=== PATIENT | female | born 1950 | race Caucasian/White ===

== ENCOUNTER 2019-07-28 14:20 | Outpatient (CLI) | payer MEDICARE, SELFPAY ==
[2019-07-28 14:36] LABS: Basophils Absolute Auto 0.1 K/mm3 (0.0-0.1); Basophils Percent Auto 0.8 % (0.2-1.2); Eosinophils Absolute Auto 0.1 K/mm3 (0-0.3); Eosinophils Percent Auto 2.1 % (0-4.4); Hematocrit 46.3 % (37.0-47.0); Hemoglobin 15.7 g/dL (12.0-15.0); Immature Granulocyte Absolute 0.02 K/mm3 (0.00-0.031); Immature Granulocyte Percent A 0.3 % (0-0.5); Lymphocytes Absolute Auto 1.74 K/mm3 (0.9-3.2); Lymphocytes Percent Auto 28.4 % (18.3-44.2); Mean Corpuscular HGB Conc 33.9 g/dl (32-36); Mean Corpuscular Hemoglobin 31.2 pg (26-34); Mean Platelet Volume 9.5 fl (7.4-10.4); Monocytes Absolute Auto 0.5 K/mm3 (0.1-0.6); Neutrophils Absolute Auto 3.7 K/mm3 (1.3-6.7); Neutrophils Percent Auto 60.4 % (45.5-73.1); Platelet Count Result 306 k/mm3 (150-375); Red Blood Count 5.03 M/mm3 (4.2-5.4); White Blood Count 6.1 K/mm3 (4.5-10.0)
[2019-07-28 17:12] LABS: Alanine Aminotransferase 25 U/L (4-35); Albumin Level 4.3 g/dL (3.5-5.1); Alkaline Phosphatase 99 U/L (38-126); Aspartate Amino Transferase 23 U/L (14-36); Bilirubin,Total 0.3 mg/dL (0.2-1.3); Blood Urea Nitrogen 28 mg/dL (7-17); Calcium 9.1 mg/dL (8.4-10.2); Carbon Dioxide 29 mmol/L (22-30); Chloride 106 mmol/L (98-107); Estimated Glomerular Filt Rate > 60; Glucose 138 mg/dL (65-105); Potassium 3.9 mmol/L (3.4-5.0); Sodium 140 mmol/L (137-145)
[2019-07-28 17:52] LABS: Immunoglobulin A 58 mg/dL (70-400); Immunoglobulin G 525 mg/dL (700-1600); Immunoglobulin M 74 mg/dL (40-230)
[2019-08-01 03:38] LABS: Albumin 4.2 g/dL (3.8-4.8); Alpha 1 Globulin 0.3 g/dL (0.2-0.3); Alpha 2 Globulin 0.6 g/dL (0.5-0.9); Beta 1 Globulin 0.4 g/dL (0.4-0.6); Gamma Globulin 0.5 g/dL (0.8-1.7); Interpretation Consistent with; Protein, Total 6.2 g/dL (6.1-8.1)
[2019-08-03 23:43] LABS: Kappa\\Lambda Light Chains 1.05 (0.26-1.65); Lambda Light Chain 6.6 mg/L (5.7-26.3)
== END 2019-07-28 14:21 | disposition home or self-care (01) ==
PROVIDERS: Visit Provider Internal Medicine Hematology & Oncology
DX: D72.9 Disorder of white blood cells, unspecified (principal)
CPT/HCPCS: 36415; 80053; 82784; 83883; 84155; 84165; 85025; 86334

== ENCOUNTER 2021-07-01 11:10 | Outpatient (CLI) | payer MEDICARE, SELFPAY ==
[2021-07-01 11:30] LABS: Basophils Absolute Auto 0.1 K/mm3 (0.0-0.1); Basophils Percent Auto 1.2 % (0.2-1.2); Eosinophils Absolute Auto 0.1 K/mm3 (0-0.3); Eosinophils Percent Auto 2.4 % (0-4.4); Hematocrit 47.1 % (37.0-47.0); Hemoglobin 15.3 g/dL (12.0-15.0); Immature Granulocyte Absolute 0.01 K/mm3 (0.00-0.031); Immature Granulocyte Percent A 0.2 % (0-0.5); Lymphocytes Absolute Auto 1.73 K/mm3 (0.9-3.2); Lymphocytes Percent Auto 33.9 % (18.3-44.2); Mean Corpuscular HGB Conc 32.5 g/dl (32-36); Mean Corpuscular Hemoglobin 30.2 pg (26-34); Mean Corpuscular Volume 92.9 fl (80-100); Mean Platelet Volume 9.7 fl (7.4-10.4); Monocytes Absolute Auto 0.4 K/mm3 (0.1-0.6); Monocytes Percent Auto 7.6 % (2.6-8.5); Neutrophils Absolute Auto 2.8 K/mm3 (1.3-6.7); Neutrophils Percent Auto 54.7 % (45.5-73.1); Platelet Count Result 296 k/mm3 (150-375); Red Blood Count 5.07 M/mm3 (4.2-5.4); Red Cell Distribution Width 12.7 % (11.5-14.5); White Blood Count 5.1 K/mm3 (4.5-10.0)
[2021-07-01 13:58] LABS: Alanine Aminotransferase 33 U/L (4-35); Albumin Level 4.3 g/dL (3.5-5.1); Alkaline Phosphatase 92 U/L (38-126); Anion Gap 2 mmol/L (8-16); Aspartate Amino Transferase 56 U/L (14-36); Bilirubin,Total 0.3 mg/dL (0.2-1.3); Blood Urea Nitrogen 24 mg/dL (7-17); Calcium 8.8 mg/dL (8.4-10.2); Carbon Dioxide 29 mmol/L (22-30); Chloride 106 mmol/L (98-107); Estimated Glomerular Filt Rate > 60; Glucose 109 mg/dL (65-110); Sodium 137 mmol/L (137-145)
[2021-07-01 14:04] LABS: Immunoglobulin A 61 mg/dL (70-400); Immunoglobulin G 549 mg/dL (700-1600); Immunoglobulin M 69 mg/dL (40-230)
== END 2021-07-01 11:11 | disposition home or self-care (01) ==
LOC: ANHLAB 11:11
PROVIDERS: Visit Provider Internal Medicine Hematology & Oncology
DX: D80.9 Immunodeficiency with predominantly antibody defects, unspecified (principal)
CPT/HCPCS: 36415; 80053; 82784; 85025

== ENCOUNTER 2021-12-20 15:01 | Outpatient (CLI) | payer MEDICARE, SELFPAY ==
[2021-12-20 15:18] LABS: Basophils Absolute Auto 0.1 K/mm3 (0.0-0.1); Basophils Percent Auto 1.2 % (0.2-1.2); Eosinophils Absolute Auto 0.1 K/mm3 (0-0.3); Eosinophils Percent Auto 2.5 % (0-4.4); Hematocrit 45.4 % (37.0-47.0); Hemoglobin 15.5 g/dL (12.0-15.0); Immature Granulocyte Absolute 0.02 K/mm3 (0.00-0.031); Immature Granulocyte Percent A 0.4 % (0-0.5); Lymphocytes Absolute Auto 1.94 K/mm3 (0.9-3.2); Lymphocytes Percent Auto 34.2 % (18.3-44.2); Mean Corpuscular HGB Conc 34.1 g/dl (32-36); Mean Corpuscular Hemoglobin 30.4 pg (26-34); Mean Platelet Volume 9.6 fl (7.4-10.4); Monocytes Absolute Auto 0.4 K/mm3 (0.1-0.6); Monocytes Percent Auto 7.8 % (2.6-8.5); Neutrophils Absolute Auto 3.1 K/mm3 (1.3-6.7); Neutrophils Percent Auto 53.9 % (45.5-73.1); Platelet Count Result 288 k/mm3 (150-375); Red Cell Distribution Width 12.4 % (11.5-14.5); White Blood Count 5.7 K/mm3 (4.5-10.0)
[2021-12-20 16:33] LABS: Alanine Aminotransferase 21 U/L (6-35); Albumin Level 4.3 g/dL (3.5-5.1); Alkaline Phosphatase 93 U/L (38-126); Anion Gap 11 mmol/L (8-16); Aspartate Amino Transferase 22 U/L (14-36); Bilirubin,Total 0.4 mg/dL (0.2-1.3); Blood Urea Nitrogen 20 mg/dL (7-17); Calcium 8.8 mg/dL (8.4-10.2); Carbon Dioxide 27 mmol/L (22-30); Chloride 104 mmol/L (98-107); Estimated Glomerular Filt Rate > 60; Glucose 125 mg/dL (65-110); Potassium 4.2 mmol/L (3.4-5.0); Sodium 142 mmol/L (137-145)
[2021-12-20 18:01] LABS: Immunoglobulin A 60 mg/dL (70-400); Immunoglobulin G 578 mg/dL (700-1600); Immunoglobulin M 70 mg/dL (40-230)
== END 2021-12-20 15:02 | disposition home or self-care (01) ==
LOC: ANHLAB 15:03
PROVIDERS: Visit Provider Internal Medicine Hematology & Oncology
DX: D80.9 Immunodeficiency with predominantly antibody defects, unspecified (principal)
CPT/HCPCS: 36415; 80053; 82784; 85025

== ENCOUNTER 2022-08-29 08:51 | Outpatient (CLI) | payer MEDICARE, SELFPAY ==
[2022-08-29 09:03] LABS: Basophils Absolute Auto 0.1 K/mm3 (0.0-0.1); Basophils Percent Auto 1.4 % (0.2-1.2); Eosinophils Absolute Auto 0.1 K/mm3 (0-0.3); Hematocrit 45.4 % (37.0-47.0); Hemoglobin 15.3 g/dL (12.0-15.0); Immature Granulocyte Absolute 0.01 K/mm3 (0.00-0.031); Immature Granulocyte Percent A 0.2 % (0-0.5); Lymphocytes Absolute Auto 1.74 K/mm3 (0.9-3.2); Lymphocytes Percent Auto 34.5 % (18.3-44.2); Mean Corpuscular HGB Conc 33.7 g/dl (32-36); Mean Corpuscular Hemoglobin 30.9 pg (26-34); Mean Corpuscular Volume 91.7 fl (80-100); Mean Platelet Volume 9.3 fl (7.4-10.4); Monocytes Absolute Auto 0.4 K/mm3 (0.1-0.6); Monocytes Percent Auto 8.5 % (2.6-8.5); Neutrophils Absolute Auto 2.7 K/mm3 (1.3-6.7); Neutrophils Percent Auto 53.4 % (45.5-73.1); Platelet Count Result 335 k/mm3 (150-375); Red Blood Count 4.95 M/mm3 (4.2-5.4); Red Cell Distribution Width 12.2 % (11.5-14.5); White Blood Count 5.1 K/mm3 (4.5-10.0)
[2022-08-29 11:08] LABS: Alanine Aminotransferase 24 U/L (6-35); Albumin Level 4.4 g/dL (3.5-5.1); Alkaline Phosphatase 84 U/L (38-126); Anion Gap 5 mmol/L (8-16); Aspartate Amino Transferase 21 U/L (14-36); Bilirubin,Total 0.6 mg/dL (0.2-1.3); Blood Urea Nitrogen 19 mg/dL (7-17); Calcium 8.9 mg/dL (8.4-10.2); Carbon Dioxide 31 mmol/L (22-30); Chloride 105 mmol/L (98-107); Estimated Glomerular Filt Rate > 60; Glucose 101 mg/dL (65-110); Potassium 4.8 mmol/L (3.4-5.0); Sodium 141 mmol/L (137-145)
[2022-08-29 11:17] LABS: Immunoglobulin A 55 mg/dL (70-400); Immunoglobulin G 501 mg/dL (700-1600); Immunoglobulin M 62 mg/dL (40-230)
== END 2022-08-29 08:52 | disposition home or self-care (01) ==
LOC: ANHLAB 08:52
PROVIDERS: Visit Provider Internal Medicine Hematology & Oncology
DX: D80.9 Immunodeficiency with predominantly antibody defects, unspecified (principal)
CPT/HCPCS: 36415; 80053; 82784; 85025

== ENCOUNTER 2023-02-23 09:57 | Outpatient (CLI) | payer MEDICARE, SELFPAY ==
[2023-02-23 10:17] LABS: Basophils Percent Auto 0.4 % (0.2-1.2); Eosinophils Absolute Auto 0.1 K/mm3 (0-0.3); Hematocrit 44.4 % (37.0-47.0); Hemoglobin 15.1 g/dL (12.0-15.0); Immature Granulocyte Absolute 0.02 K/mm3 (0.00-0.031); Immature Granulocyte Percent A 0.4 % (0-0.5); Lymphocytes Absolute Auto 1.77 K/mm3 (0.9-3.2); Lymphocytes Percent Auto 34.6 % (18.3-44.2); Mean Corpuscular Hemoglobin 30.6 pg (26-34); Mean Corpuscular Volume 89.9 fl (80-100); Mean Platelet Volume 9.6 fl (7.4-10.4); Monocytes Absolute Auto 0.4 K/mm3 (0.1-0.6); Monocytes Percent Auto 8.4 % (2.6-8.5); Neutrophils Absolute Auto 2.8 K/mm3 (1.3-6.7); Neutrophils Percent Auto 54.2 % (45.5-73.1); Platelet Count Result 257 k/mm3 (150-375); Red Blood Count 4.94 M/mm3 (4.2-5.4); Red Cell Distribution Width 12.2 % (11.5-14.5); White Blood Count 5.1 K/mm3 (4.5-10.0)
[2023-02-23 13:31] LABS: Immunoglobulin A 52 mg/dL (70-400); Immunoglobulin G 475 mg/dL (700-1600); Immunoglobulin M 52 mg/dL (40-230)
[2023-02-23 13:33] LABS: Alanine Aminotransferase 31 U/L (6-35); Albumin Level 4.4 g/dL (3.5-5.1); Alkaline Phosphatase 75 U/L (38-126); Anion Gap 8 mmol/L (8-16); Aspartate Amino Transferase 27 U/L (14-36); Bilirubin,Total 0.6 mg/dL (0.2-1.3); Blood Urea Nitrogen 17 mg/dL (7-17); Calcium 9.1 mg/dL (8.4-10.2); Carbon Dioxide 30 mmol/L (22-30); Chloride 103 mmol/L (98-107); Estimated Glomerular Filt Rate > 60; Glucose 97 mg/dL (65-110); Potassium 4.6 mmol/L (3.4-5.0); Sodium 141 mmol/L (137-145)
== END 2023-02-23 09:58 | disposition home or self-care (01) ==
LOC: ANHLAB 10:00
PROVIDERS: Visit Provider Internal Medicine Hematology & Oncology
DX: D80.9 Immunodeficiency with predominantly antibody defects, unspecified (principal)
CPT/HCPCS: 36415; 80053; 82784; 85025

== ENCOUNTER 2023-07-02 09:39 | Outpatient (CLI) | payer MEDICARE, SELFPAY ==
[2023-07-02 09:55] LABS: Basophils Absolute Auto 0.1 K/mm3 (0.0-0.1); Basophils Percent Auto 0.9 % (0.2-1.2); Eosinophils Absolute Auto 0.1 K/mm3 (0-0.3); Eosinophils Percent Auto 2.1 % (0-4.4); Hematocrit 44.9 % (37.0-47.0); Hemoglobin 15.2 g/dL (12.0-15.0); Immature Granulocyte Absolute 0.01 K/mm3 (0.00-0.031); Immature Granulocyte Percent A 0.2 % (0-0.5); Lymphocytes Percent Auto 29.2 % (18.3-44.2); Mean Corpuscular HGB Conc 33.9 g/dl (32-36); Mean Corpuscular Hemoglobin 30.2 pg (26-34); Mean Corpuscular Volume 89.1 fl (80-100); Mean Platelet Volume 9.6 fl (7.4-10.4); Monocytes Absolute Auto 0.4 K/mm3 (0.1-0.6); Monocytes Percent Auto 7.2 % (2.6-8.5); Neutrophils Absolute Auto 3.5 K/mm3 (1.3-6.7); Neutrophils Percent Auto 60.4 % (45.5-73.1); Platelet Count Result 270 k/mm3 (150-375); Red Blood Count 5.04 M/mm3 (4.2-5.4); Red Cell Distribution Width 12.3 % (11.5-14.5); White Blood Count 5.8 K/mm3 (4.5-10.0)
[2023-07-02 11:53] LABS: Anion Gap 4 mmol/L (8-16); Blood Urea Nitrogen 18 mg/dL (7-17); Carbon Dioxide 28 mmol/L (22-30); Chloride 109 mmol/L (98-107); Estimated Glomerular Filt Rate > 60; Glucose 103 mg/dL (65-110); Potassium 4.2 mmol/L (3.4-5.0); Sodium 141 mmol/L (137-145)
[2023-07-02 11:54] LABS: Immunoglobulin A 59 mg/dL (70-400); Immunoglobulin G 575 mg/dL (700-1600); Immunoglobulin M 65 mg/dL (40-230)
== END 2023-07-02 09:40 | disposition home or self-care (01) ==
LOC: ANHLAB 09:42
PROVIDERS: Visit Provider Internal Medicine Hematology & Oncology
DX: D80.9 Immunodeficiency with predominantly antibody defects, unspecified (principal)
CPT/HCPCS: 36415; 80048; 82784; 85025

== ENCOUNTER 2024-01-01 08:24 | Outpatient (CLI) | payer MEDICARE, SELFPAY ==
[2024-01-01 08:46] LABS: Basophils Absolute Auto 0.1 K/mm3 (0.0-0.1); Basophils Percent Auto 1.1 % (0.2-1.2); Eosinophils Absolute Auto 0.1 K/mm3 (0-0.3); Eosinophils Percent Auto 1.5 % (0-4.4); Hematocrit 44.1 % (37.0-47.0); Hemoglobin 15.1 g/dL (12.0-15.0); Immature Granulocyte Absolute 0.01 K/mm3 (0.00-0.031); Immature Granulocyte Percent A 0.2 % (0-0.5); Lymphocytes Absolute Auto 1.82 K/mm3 (0.9-3.2); Lymphocytes Percent Auto 40.1 % (18.3-44.2); Mean Corpuscular HGB Conc 34.2 g/dl (32-36); Mean Corpuscular Hemoglobin 31.3 pg (26-34); Mean Corpuscular Volume 91.3 fl (80-100); Mean Platelet Volume 9.6 fl (7.4-10.4); Monocytes Absolute Auto 0.4 K/mm3 (0.1-0.6); Monocytes Percent Auto 7.9 % (2.6-8.5); Neutrophils Absolute Auto 2.2 K/mm3 (1.3-6.7); Neutrophils Percent Auto 49.2 % (45.5-73.1); Platelet Count Result 249 k/mm3 (150-375); Red Blood Count 4.83 M/mm3 (4.2-5.4); Red Cell Distribution Width 12.3 % (11.5-14.5); White Blood Count 4.5 K/mm3 (4.5-10.0)
[2024-01-01 13:43] LABS: Alanine Aminotransferase 23 U/L (6-35); Albumin Level 4.2 g/dL (3.5-5.1); Alkaline Phosphatase 83 U/L (38-126); Anion Gap 11 mmol/L (4-12); Aspartate Amino Transferase 23 U/L (14-36); Bilirubin,Total 0.6 mg/dL (0.2-1.3); Blood Urea Nitrogen 23 mg/dL (7-17); Calcium 9.2 mg/dL (8.4-10.2); Carbon Dioxide 26 mmol/L (22-30); Chloride 104 mmol/L (98-107); Estimated Glomerular Filt Rate > 60; Glucose 100 mg/dL (65-110); Potassium 4.2 mmol/L (3.4-5.0); Sodium 141 mmol/L (137-145)
[2024-01-01 21:35] LABS: Immunoglobulin A 53 mg/dL (70-400); Immunoglobulin G 484 mg/dL (700-1600); Immunoglobulin M 63 mg/dL (40-230)
[2024-01-04 13:33] LABS: Kappa\\Lambda Light Chains 1.72 (0.26-1.65); Lambda Light Chain 6.4 mg/L (5.7-26.3)
[2024-01-04 13:58] LABS: Albumin 4.1 g/dL (3.8-4.8); Alpha 1 Globulin 0.3 g/dL (0.2-0.3); Alpha 2 Globulin 0.5 g/dL (0.5-0.9); Beta 1 Globulin 0.4 g/dL (0.4-0.6); Gamma Globulin 0.5 g/dL (0.8-1.7)
== END 2024-01-01 08:25 | disposition home or self-care (01) ==
PROVIDERS: Visit Provider Internal Medicine Hematology & Oncology
DX: D80.9 Immunodeficiency with predominantly antibody defects, unspecified (principal)
CPT/HCPCS: 36415; 80053; 82784; 83883; 84155; 84165; 85025

== ENCOUNTER 2024-07-07 12:48 | Outpatient (CLI) | payer MEDICARE, SELFPAY ==
--- OUTSIDE RECORDS SUMMARY | 2024-07-07 12:55 | XMS_ITS | Clinical Summary ---
Author Organization [facility] Facility Address [address] [place] [id number] Care Team Providers Care Aquaculture Farmer Name Role Phone Abraham Jones MD Primary Care Provider [phone] Medications cyanocobalamin (VITAMIN B-12) 1000 MCG tablet TAKE 1 TABLET BY MOUTH EVERY DAY 90 tablet 1 11/10/2022 Active Encounters Date Type Department Care Team Description 04/26/2024 12:30 PM HAND CIGAR MAKING SUPERVISOR Office Visit [facility], [facility] [address] [facility] [address] [place] [phone] El Lindquist DO Chronic kidney disease, stage 2 (mild) (Primary Dx); Interstitial nephritis; Hypothyroidism, not otherwise specified; Overactive bladder; Erosive osteoarthritis; Diabetes mellitus screening 04/25/2024 Office Communication [facility], [address] [phone] El Lindquist DO 04/25/2024 Office Communication [facility], [address] [place] [address] El Lindquist DO 04/18/2024 Documentation Only [facility], [address] [place] [address] El Lindquist DO 04/18/2024 Documentation Only [facility], [address] [place] [address] lE Lindquist DO from Last 3 Months Social History Tobacco Use Types Packs/Day Years Used Date Smoking Tobacco: Never Assessed Comments Unknown Sex and Gender Information Value Date Recorded Sex Assigned at Not on file Legal Sex Female 11:40 AM EDT Gender Identity Not on file Sexual Orientation Not on file Last Filed Vital Signs Vital Sign Reading Time Taken Comments Blood Pressure 130/80 04/26/2024 12:55 PM HAND CIGAR MAKING SUPERVISOR Pulse 78 04/26/2024 12:55 PM HAND CIGAR MAKING SUPERVISOR Temperature 36.7 C (98 F) 04/26/2024 12:55 PM HAND CIGAR MAKING SUPERVISOR Respiratory Rate 18 04/26/2024 12:55 PM HAND CIGAR MAKING SUPERVISOR Oxygen Saturation 99% 04/26/2024 12:55 PM HAND CIGAR MAKING SUPERVISOR Inhaled Oxygen Concentration - - Weight 80.3 kg (177 lb 1.6 oz) 04/26/2024 12:55 PM HAND CIGAR MAKING SUPERVISOR Height 162.6 cm (5' 4 ) 04/15/2022 12:35 PM HAND CIGAR MAKING SUPERVISOR Body Mass Index 30.4 04/15/2022 12:35 PM HAND CIGAR MAKING SUPERVISOR Plan of Treatment Upcoming Encounters Date Type Department Care Team (Late st Contact Info) Description 05/02/2025 12:30 PM HAND CIGAR MAKING SUPERVISOR Office Visit [facility], [facility] [address] [facility] [address] [place] [address] El Lindquist DO [address] [phone] Health Maintenance Due Date Last Done Comments Breast Cancer Screening 1950 Pneumococcal Vaccine: 65+ Years (1 of 2 - PCV) 09/02/1957 Colorectal Cancer Screening: Annual FOBT 09/02/2000 Colorectal Cancer Screening: Colonoscopy 09/02/2000 Colorectal Cancer Screening: Sigmoidoscopy 09/02/2000 Diabetes: Hemoglobin A1C 04/06/2023 Diabetes: Ophthalmology Exam 04/06/2023 Diabetes: Pedal Pulse Checked 04/06/2023 Diabetes: Sensory Foot Exam 04/06/2023 Diabetes: Visual Foot Exam 04/06/2023 Influenza Vaccine Completed 05/12/2024, 04/17/2020, 06/02/2019 Hepatitis B Vaccine Aged Out No longe r eligible based on patient's age to complete this topic Insurance MEDICARE [facility] Care Teams Aquaculture Farmer Relationship Specialty Start Date End Date Abraham Jones MD [address] [place] [address] PCP - General Internal Medicine 04/21/23
--- OUTSIDE RECORDS SUMMARY | 2024-07-07 12:55 | XMS_ITS | Data Portability ---
Author Organization [facility] Address [address] [place] [address] Assessment No assessment recorded. Plan of Treatment Reminders Order Date Submit Date Provider Last Modified By Organization Details Last Modified Time Details Appointments None recorded. Lab BMP, serum or plasma 2017 018 [facility], [address] [place] [address], [address], [place], [address], 8 07:14:07 Referral senior systems software engineer referral - Please call patient to schedule appt. Thank you 2018 019 [email or web address] Not available 9 12:19:03 senior systems software engineer referral 2017 018 [email or web address] Not available 8 14:55:26 Procedures None recorded. Surgeries None recorded. Imaging XR, ankle + foot 2017 018 [facility] ([facility]), [address] [place], [address], 8 13:55:14 Medication Orders levothyrox ine 50 mcg tablet 2018 019 INTERFACE [facility], [address], [place], [address], 9 16:51:07 levothyrox ine 50 mcg tablet 2018 019 INTERFACE [facility], [address], [place], [address], 9 12:06:56 Patient TargetsNo targets recorded. Patient Instructions Encounter Date Encounter Id Patient Instructions Last Modified By Organization Details Last Modified Time 02/08/2018 [id number] plantar fasciitis: exercises Not available 02/08/2018 14:57:10 see podiatry for foot pain get XR done avoid nsaids start at home stretching get sleep study done emerald Not available 02/08/2018 15:48:29 04/13/2018 [id number] Patient had type d up a complaint that I gave to Cyndy Silvestre I advised patient that providers do not generally contact patients directly out of this office and that most of the time it goes through our nurses, so always ensure to leave a message with the nurse and it will get to the appropriate provider for review [email or web address] Not available 04/13/2018 10:43:48 09/15/2018 [id number] - Always present to ER or Urgent Care with any progession of/alarming symptoms, significant changes in symptoms that are concerning or urgent matters. -Advised to follow with oncoming provider to establish relationship and plan management of care tmond Not available 09/15/2018 17:24:47 Discussed pt's renal function in relation to medication options. Discussed possible plans for management for the future in terms of step up approch with regard to knee tmond Not available 09/15/2018 17:25:51 Reason for Referral Entrepreneurial Finance Professor Referral for Pain in right heel Referring Physician: Didier Crain, Family Medicine, Encounter Date: 02/08/2018 Entrepreneurial Finance Professor Referral for Pain in right heel Please call patient to schedule appt. Thank you Referring Physician: Lourdes Sims, Family Medicine, Encounter Date: 09/15/2018 Results Created Date Observation Date Name Description Value Unit Range Abnormal Flag Note LastModifiedBy Organization Detail LastModifiedTime 02/05/20 18 02/05/2018 TSH + free T4, serum TSH 2.360 uIU/m L 0.450- 4.500 Not Available [facility] ([facility]) [address] [facility], [place], [address], 02/05/2018 06:19:44 02/05/20 18 02/05/2018 TSH + free T4, serum T4,free(dire ct) 1.27 NG/dL 0.82-1 .77 Not Available [facility] ([facility]) [address] [facility] [place], [address], 02/05/2018 06:19:44 02/05/20 18 02/04/2018 BMP, serum or plasm a glucose 107 mg/dL 65-99 above high normal Not Available [facility] ([facility]) [address] [facility] [place], [address], 02/05/2018 06:19:45 02/05/20 18 02/04/2018 BMP, serum or plasm a BUN 16 mg/dL 8-27 Not Available [facility] ([facility]) [address] [facility] [place], [address], 02/05/2018 06:19:45 02/05/20 18 02/04/2018 BMP, serum or plasm a creatinine 0.93 mg/dL 0.57-1 .00 Not Available [facility] ([facility]) [address] [facility] [place], [address], 02/05/2018 06:19:45 02/05/20 18 02/04/2018 BMP, serum or plasm a eGFR if nonafricn AM 64 mL/mi n/1.7 3 >59 Not Available [facility] ([facility]) [address] [facility] [place], [address], 02/05/2018 06:19:45 02/05/20 18 02/04/2018 BMP, serum or plasm a eGFR if africn AM 74 mL/mi n/1.7 3 >59 Not Available [facility] ([facility]) [address] [facility] [place], [address], 02/05/2018 06:19:45 02/05/20 18 02/04/2018 BMP, serum or plasm a BUN/creatini ne ratio 17 12-28 Not Available [facility] ([facility]) [address] [facility] [place], [address], 02/05/2018 06:19:45 02/05/202018 BMP, serum or plasm a sodium 143 mmol/ L 134-14 4 Not Available [facility] ([facility]) [address] [facility] [place], [address], 02/05/2018 06:19:45 02/05/20 18 02/04/2018 BMP, serum or plasm a potassium 4.7 mmol/ L 3.5-5. 2 Not Available [facility] ([facility]) [address] [facility] [place], [address], 02/05/2018 06:19:45 02/05/20 18 02/04/2018 BMP, serum or plasm a chloride 105 mmol/ L 96-106 Not Available [facility] ([facility]) [address] [facility] [place], [address], 02/05/2018 06:19:45 02/05/20 18 02/04/2018 BMP, serum or plasm a carbon dioxide, total 25 mmol/ L 20-29 Not Available [facility] ([facility]) [address] [facility] [place], [address], 02/05/2018 06:19:45 02/05/20 18 02/04/2018 BMP, serum or plasm a calcium 9.3 mg/dL 8.7-10 .3 Not Available [facility] ([facility]) [address] [facility] [place], [address], 02/05/2018 06:19:45 05/03/20 18 05/04/2018 BMP, serum or plasm a glucose 101 mg/dL 65-99 above high normal Not Available [facility] ([facility]) [address] [facility] [place], [address], 05/04/2018 07:14:07 05/03/20 18 05/04/2018 BMP, serum or plasm a BUN 19 mg/dL 8-27 Not Available [facility] ([facility]) [address] [facility] [place], [address], 05/04/2018 07:14:07 12/10/20 18 05/04/2018 BMP, serum or plasm a creatinine 0.84 mg/dL 0.57-1 .00 Not Available [facility] ([facility]) [address] [facility] [place], [address], 05/04/2018 07:14:07 05/03/20 18 05/04/2018 BMP, serum or plasm a eGFR if nonafricn AM 73 mL/mi n/1.7 3 >59 Not Available [facility] ([facility]) [address] [facility] [place], [address], 05/04/2018 07:14:07 05/03/20 18 05/04/2018 BMP, serum or plasm a eGFR if africn AM 84 mL/mi n/1.7 3 >59 Not Available [facility] ([facility]) [address] [facility] [place], [address], 05/04/2018 07:14:07 05/03/20 18 05/04/2018 BMP, serum or plasm a BUN/creatini ne ratio 23 12-28 Not Available [facility] ([facility]) [address] [facility] [place], [address], 05/04/2018 07:14:07 05/03/20 18 05/04/2018 BMP, serum or plasm a sodium 146 mmol/ L 134-14 4 above high normal Not Available [facility] ([facility]) [address] [facility] [place], [address], 05/04/2018 07:14:07 05/03/20 18 05/04/2018 BMP, serum or plasm a potassium 3.9 mmol/ L 3.5-5. 2 Not Available [facility] ([facility]) [address] [facility] [place], [address], 05/04/2018 07:14:07 05/03/20 18 05/04/2018 BMP, serum or plasm a chloride 105 mmol/ L 96-106 Not Available [facility] ([facility]) [address] [facility], [place], [address], 05/04/2018 07:14:07 05/03/20 18 05/04/2018 BMP, serum or plasm a carbon dioxide, total 23 mmol/ L Not Available [facility] ([facility]) [address] [facility], [place], [address], 05/04/2018 07:14:07 05/03/20 18 05/04/2018 BMP, serum or plasm a calcium 9.1 mg/dL 8.7-10 .3 Not Available [facility] ([facility]) [address] [facility], [place], [address], 05/04/2018 07:14:07 02/10/20 18 02/09/2018 XR, ankle + foot No observ ation record ed. [address] (Imaging) [address] [place], [address], 02/16/2018 13:02:50 02/10/20 18 02/09/2018 XR, ankle + foot No observ ation record ed. [address] ([facility]) [address] [place], [address], 02/10/2018 17:55:54 02/10/20 18 02/09/2018 XR, ankle + foot No observ ation record ed. [address] [place], [address], 02/16/2018 13:02:50 02/10/20 18 02/09/2018 XR, ankle + foot No observ ation record ed. [address] [place], [address], 02/15/2018 17:12:44 Result Notes None recorded. Problems Name Problem SNOMED Code Status Onset Date Resolution Date Notes Provider Name and Address Organization Details Recorded Time Dizziness 323403072 Active 2016 Barb Rene PA-C Attn: Accounting ,[address] [facility], [place], [address] , [place] - [facility] 7 10:32:39 Pain in right knee Active 2017 Barb Rene PA-C Attn: Accounting ,[address] [place], [address] , [place] [facility] 8 12:52:45 Body mass index 30+ - obesity 819632744 Active 2017 Barb Rene PA-C Attn: Accounting ,[address] [place], [address] , [place] [facility] 8 12:53:47 Serum creatinin e above reference range 442841562 Active 2017 Barb Rene PA-C Attn: Accounting ,[address] [place], [address] , [place] - [facility] 8 16:23:25 Pain in right heel 39048805725 55392 Active 2017 Shana Collier MD Attn: Accounting ,[address] [place], [address] , [place] [facility] 8 15:54:53 Plantar fasciitis 727519772 Active 2017 Barb Rene PA-C Attn: Accounting ,[address] [place], [address] , [place] - [facility] 8 10:42:58 Hypothyro idism 83520146 Active Victor M Sargent MD Attn: Accounting ,[address] [place], [address] , [place] [facility] 6 10:53:43 Anterior knee pain 681067499 Active Victor M Sargent MD Attn: Accounting ,[address] [place], [address] , [place] - [facility] 5 17:20:56 Degenerat jean disorder of bone 930965146 Active Victor M Sargent MD Attn: Accounting ,[address] [place], [address] , [place] [facility] 6 10:53:43 Postopera tive hypothyro idism 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, [place], [address] , [place] - [facility] 6 10:53:43 Screening for malignant neoplasm of breast Active 2016 Barb Rene PA-C Attn: Accounting ,[address] [facility], [place], [address] , [place] - [facility] 7 11:27:01 Adult health examinati on Active 2016 Barb Rene PA-C Attn: Accounting ,[address] [facility], [place], [address] , [place] - [facility] 7 11:32:03 Obesity 161481601 Completed 201609/29/2017 Barb Rene PA-C Attn: Accounting ,[address] [facility], [place], [address] , [place] - [facility] 8 12:53:39 Blood glucose outside reference range 357746663 Active 2016 a1c: 6.0 on 017 Barb Rene PA-C Attn: Accounting ,[address] [facility], [place], [address] , [place] [facility] 7 10:34:34 Gynecolog ic examinati on Active 2016 Barb Rene PA-C Attn: Accounting ,[address] [facility], [place], [address] , [place] - [facility] 7 11:28:34 Sinusitis 26082133 Active 2016 Barb Rene PA-C Attn: Accounting ,[address] [facility], [place], [address] , [facility] - [facility] 7 10:39:36 Postmenop ausnm state 77544726 Active 2016 Barb Rene PA-C Attn: Accounting ,[address] [facility], [place], [address] , [facility] - [facility] 7 10:58:23 Fatigue 73980891 Active 2016 Barb Rene PA-C Attn: Accounting ,[address] [facility], [place], [address] , [facility] - [facility] 7 10:14:27 Overweigh t 508541808 Active 2016 Barb Rene PA-C Attn: Accounting ,[address] [facility], [place], [address] , [facility] - [facility] 7 09:25:58 Problem Notes None recorded. Procedures Surgical History Date Name Laterality Status Provider Name and Address Organization Details Recorded Time 7 Knee Surgery completed Abby Davenport [place] - [facility] 7 11:03:51 5 Removal of thyroid completed Joslyn Hanks MA [place] - [facility] 07/09/2018 12:28:55 Imaging Results Imaging Date Name Status [facility] Details LastModified Time 02/09/2018 XR, ankle + foot completed [address] (Imaging) [address] [place], [address], 02/16/2018 13:02:50 02/09/2018 XR, ankle + foot completed [email or web address] ([facility]) [address] [place], [address], 02/10/2018 17:55:54 02/09/2018 XR, ankle + foot completed [address] [place], [address], 02/16/2018 13:02:50 02/09/2018 XR, ankle + foot completed [address] [place], [address], 02/15/2018 17:12:44 Procedure Notes None recorded. Medical Equipment None Reported. Allergies Allergen ID Allergen Name Allergen Category Reaction Reaction Severity Criticality Documentation Date Start Date Code Code System Note Provider Name and Address Organization Details Recorded Time 88590 Dilantin medicatio n Not available Not available Not available 10/03/2014 0 RxNorm Not Available Not Available Not Available Medications Name Sig Start Date Stop Date Status Note LastModified by Organization Details LastModified Time cetirizine 10 mg tablet Take 1 tablet every day by oral route. 04/13 completed Not Available Not Available Not Available azithromyci n 250 mg tablet TAKE 2 TABLETS (500 MG) BY ORAL ROUTE ONCE DAILY FOR 1 DAY THEN 1 TABLET (250 MG) BY ORAL ROUTE ONCE DAILY FOR 4 DAYS 04/13 completed Not Available Not Available Not Available tramadol 50 mg tablet Take 1 tablet every 8 hours by oral route as needed. 05/04 completed Not Available Not Available Not Available levothyroxi ne 75 mcg tablet TAKE 1 TABLET EVERY DAY 02/08 completed Not Available Not Available Not Available meloxicam 7.5 mg tablet TAKE 1 TABLET TWICE DAILY active Not Available Not Available No t Available levothyroxi ne 100 mcg tablet Take 1 tablet every day by oral route for 30 days. 07/31 completed Not Available Not Available Not Available levothyroxi ne 88 mcg tablet Take 1 tablet every day by oral route as directed. 10/21 completed Not Available Not Available Not Available levothyroxi ne 50 mcg tablet TAKE 1 TABLET EVERY DAY (DISCONTI NUE 75MCG) active Not Available Not Available No t Available methylpredn isolone 4 mg tablets in a dose pack 09/15 completed Not Available Not Available Not Available fluticasone propionate 50 mcg/actuati on nasal spray,suspe nsion [place] 1 spray every day by intranasa l route. 04/13 completed Not Available Not Available Not Available amoxicillin 875 mg-potassiu m clavulanate 125 mg tablet 09/15 completed Not Available Not Available Not Available Vitals Date Recorded Body height Body mass index (BMI) Body weight Oxygen saturation Oxygen saturation in Arterial blood by Pulse oximetry Heart rate Body temperature Systolic blood pressure Diastolic blood pressure Provider Name and Address Organization Details Last Updated DateTime 8 160.02 cm 29.7 kg/m2 00069.7 3 g 97 % 97 % 76 /min 98.8 [degF] 120 mm[Hg] 80 mm[Hg] Katie Plata MA [facility] 8 14:42:16 Date Recorded Body height Body mass index (BMI) Body weight Oxygen saturation Oxygen saturation in Arterial blood by Pulse oximetry Heart rate Body temperature Systolic blood pressure Diastolic blood pressure Provider Name and Address Organization Details Last Updated DateTime 8 160.02 cm 30.2 kg/m2 50978.8 9 g 93 % 93 % 65 /min 97.9 [degF] 110 mm[Hg] 74 mm[Hg] Apple Scruggs MA [facility] 8 09:51:20 Date Recorded Body height Body mass index (BMI) Body weight Oxygen saturation Oxygen saturation in Arterial blood by Pulse oximetry Heart rate Body temperature Systolic blood pressure Diastolic blood pressure Provider Name and Address Organization Details Last Updated DateTime 9 160.02 cm 31.2 kg/m2 92777.6 6 g 98 % 98 % 94 /min 98.4 [degF] 112 mm[Hg] 62 mm[Hg] Apple Scruggs MA [facility] 9 12:00:17 Date Recorded Body height Body mass index (BMI) Body weight Oxygen saturation Oxygen saturation in Arterial blood by Pulse oximetry Heart rate Body temperature Systolic blood pressure Diastolic blood pressure Provider Name and Address Organization Details Last Updated DateTime 9 160.02 cm 30.8 kg/m2 16838.5 g 94 % 94 % 72 /min 98.1 [degF] 120 mm[Hg] 70 mm[Hg] Joslyn Hanks MA [facility] 9 12:31:25 Date Recorded Body height Body mass index (BMI) Body weight Oxygen saturation Oxygen saturation in Arterial blood by Pulse oximetry Heart rate Body temperature Systolic blood pressure Diastolic blood pressure Provider Name and Address Organization Details Last Updated DateTime 9 160.02 cm 31.1 kg/m2 78035.8 5 g 97 % 97 % 81 /min 98.7 [degF] 110 mm[Hg] 70 mm[Hg] Apple Scruggs MA [facility] 9 16:04:38 Social History Question Answer Notes LastModified by Organizat ion Details LastModified Time Tobacco Smoking Status Former Smoker Pt Quit 2006 Joslyn Hanks MA zita, [facility] 07/09/2018 12:28:32 Do You Have An Advance Directive? No Information not available 09/29/2017 What Is Your Level Of Alcohol Consumption? Occasional Information not available 09/29/2017 What Is Your Level Of Caffeine Consumption? Moderate Information not available 09/29/2017 How Much Tobacco Do You Chew? None Information not available 09/29/2017 Are You Currently Employed? Yes Information not available 09/29/2017 What Type Of Diet Are You Following? REGULAR Information not available 09/29/2017 Which Illicit Or Recreational Drugs Have You Used? 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 No Information not available 09/29/2017 Hard Of Hearing Or Deaf In One Or Both Ears? No Information not available 09/29/2017 Legally Blind In One Or Both Eyes? No Information not available 09/29/2017 Live Alone Or With Others? Alone Information not available 09/29/2017 What Was The Date Of Your Most Recent Tobacco Screening? 07/09/2018 Information not available 12/16/2018 How Many Children Do You Have? 0 Information not available 09/29/2017 Seat Belts Used Routinely Yes Information not available 09/29/2017 Are You Sexually Active? No Information not available 09/29/2017 Smoke Alarm In Home Yes Information not available 09/29/2017 Are You Passively Exposed To Smoke? No Information not available 09/29/2017 General Stress Level Medium Information not available 09/29/2017 Do You Use Sunscreen Routinely? No Information not available 09/29/2017 How Many Years Have You Smoked Tobacco? 10 2-3 Cig/d [email or web address] Information not available 07/31/2016 Sex: Unknown Functional Status Question Answer Note LastModified by Organization D etails LastModified Time Are you able to care for yourself? Yes Information not available 09/29/2017 What is your exercise level? Moderate Information not available 09/29/2017 Mental Status None recorded. Family History Relationship Description Onset Age of this Age Resolved Age Notes LastModified by Organization Details LastModified Time Father Cerebrovascu lar accident 78 [email or web address] Not available 01/2017 10:29:34 Mother Cerebrovascu lar accident 78 [email or web address] Not available 01/2017 10:29:34 Maternal Grandmother Malignant tumor of breast 50 [email or web address] Not available 2016 11:02:36 Medical History Condition Response Thyroid Problems Y Gynecological History Statement/Question Response Menses Monthly N If Post Menopausal, Age at Menopause 46 Obstetrics History GPAL:G 0 P 0 0 0 0 Past Encounters Encounter ID Performer Location Encounter Start Date Encounter Closed Date Diagnosis/Indication Diagnosis SNOMED-CT Code Diagnosis ICD10 Code Diagnosis Note [id number] [facility] (Adult [facility]) [address] [place] [id number] 0 10/03/2014 16:05:37 10/03/2014 17:21:42 Hypothyroidism 16794200 Anterior knee pain 778745823 [id number] [facility] (Adult Med) [address] [place] [address] 27470-627 0 11/14/2014 14:57:11 11/15/2014 09:10:44 Degenerative disorder of bone 533108242 Postoperat jean hypothyroidism 89455924 [id number] MD [facility] (Adult Med) [address] [place] [address] [id number] 0 08/17/2015 10:01:53 08/17/2015 11:00:28 Hypothyroidism 54504200 E03.9 Degenerati ve disorder of bone 329403165 M92.229 Skin lesion 28548885 L98 .9 [id number] [facility] (Adult Med) [address] [place] [address] [phone] 0 07/31/2016 09:53:37 07/31/2016 11:41:14 Adult health examination 790816155 Z00.01 65 Y/O F presents to establish care. Susana huerta from provider (Dr. Sargent). Has not been following up with labs, pap smears, mammogram due to lack of trust in provider. Past medical hx includes hypothyroi dism (due to removal of overactive thyroid), arthritis. Medication s include meloxicam and levothyrox ine. Pt is otherwise healthy and has no complaints at this time. Screening for malignant neoplasm of breast 079808927 Z12.31 Postoperat jean hypothyroidism 88065151 E89.0 levothyrox ine 75mcgWIll recheck levels today Obesity 566990601 E66.9 Advised 30 minutes of exercise 5 days/week Advised to not drink her calories Advised 3 balanced meals/day with plenty of fruits and vegetables [id number] [facility] (Adult Med) [address] [place] [address] [id number] 0 08/21/2016 11:04:28 08/21/2016 18:23:57 Gynecologic examination 38679729 Z01.918 [id number] [facility] (Adult Med) [address] [place] [address] [phone] 0 10/15/2016 10:21:47 10/15/2016 17:56:50 Sinusitis 04831643 J32.9 sx's > 2 weeks - will treat for sinusitisA dvised to drink plenty of waterAlter diamond ibuprofen and tylenol for painRestOT C cough syrup PRN Allergic rhinitis 881105 04 J30.9 Blood gluc ose outside reference range 179141782 R73.09 FBS: 117 on CMP - will check a1c Hypothyroidism 98258663 E03.9 currently taking levothyrox ine 75mcg QDTSH: 6.87 and free T4: 10.4 - will recheck today Postmenopausal state 764 56667 Z78.0 will check Dexa Scan [id number] [facility] (Adult Med) [address] [place] [address] [phone] 0 10/21/2016 09:29:18 10/23/2016 11:30:22 Hypothyroidism 41739184 E03.9 currently taking levothyrox ine 75mcg QDthyroid levels WNL - will repeat in 6 months to 1 year Degenerati ve disorder of bone 649969610 M89.8X9 Will readdress at next visitDiscu ssed that we could do OT at this time for her hands, but she would like to hold off on that for right now Fatigue 08043846 R53.83 Patient states that she feels much better than she did last week; however, is still tiredAt this time she doesn't want to proceed with any further testing - states that she will contact us if she desires further testing. States that she feels like this is 2/2 recent illness. [id number] [facility] (Adult Med) [address] [place] [address] [id number] 0 03/10/2017 08:44:34 03/10/2017 13:33:29 Anterior knee pain 434229375 M25.569 right knee - will begin with xray and then refer to ortho Overweight 898418550 E66 .3 Advised 30 minutes of exercise 5 days/week Advised to not drink her calories Advised 3 balanced meals/day with plenty of fruits and vegetables [id number] [facility] Gallardo (Adult Med) [address] [place] [address] [id number] 0 04/13/2017 09:10:22 04/13/2017 11:11:59 Degenerative disorder of bone 717902375 M89.8X9 c/w meloxicam - per patient, working well Dizziness 244991029 R42 At this time patient does not want to do any w/u for the dizziness since it has not ocurred in the last 3+ weeksDenie s LOC - PE negativeAt this time advised that if this occurs again to let me know and we will do a full w/u but she states that she just wanted to let me know what is going on so it is documented but is not ready to do a full w/u for it at this time Advised to purchase a BP cuff that she can check her BP when this occursAdvi sed 1-2L of water/day [id number] [facility] (Adult Med) [address] [place] [address] [id number] 09/29/2017 10:59:58 09/29/2017 12:12:22 Pain in right knee [id number] M25.561 Pain and swelling to right knee. Limited ROM most likely secondary to swelling. Fracture unlikely with limited pain. Recommend RICE. Will refer to PT if not improving by Thursday. NO need for xray at this time - advised that we can always proceed with xray if she desires, but right now she would like to try RICE. Advised to take it easy with work if she decides to go tomorrow Body mass index 30+ - obesity [id number] Z68.39 Advised 30 minutes of exercise 5 days/week Advised to not drink her calories Advised 3 balanced meals/day with plenty of fruits and vegetables [id number] KATHARINE Gallardo (Adult Med) [address] [place] [phone] 0 12/15/2017 10:53:09 12/16/2017 10:05:23 Fatigue [id number] R53.83 Will check basic labs and also send for sleep studyAt this time she doesn't want to proceed with any further testing - states that she will contact us if she desires further testing. States that she feels like this is 2/2 recent illness. Blood gluc ose outside reference range [id number] R73.09 a1c: 6.0 on 10/15/16 - will address at next appointmen t Hypothyroidism 52189186 E03.9 currently taking levothyrox ine 75mcg QDlast thyroid levels WNL - will repeat Hypersomnia 12314232 G47 .10 Will refer for sleep study Screening for malignant neoplasm of breast 610122070 Z12.31 Postmenopausal state 764 12214 Z78.0 will check Dexa Scan [id number] MD Etelvina Aviles (Adult Med) [address] [place] [address] [phone] 0 01/05/2018 14:28:14 01/06/2018 09:29:16 Pain in right heel [id number] 472626 M79.671 Trial of tramadol prn. Continue acetaminop hen. Discussed xrays of heel [id number] RITESH GALEANO (Adult Med) [address] [place] [address] [phone] 0 02/08/2018 14:31:34 02/10/2018 10:47:31 Pain in right heel [id number] 351076 M79.671 get XR donestart at home stretching exercisesm ay take tramadol if needed or tylenol-no nsaidsrefe r to podiatry for further recommenda tionsf/u prn Fatigue 70631738 R53.83 labs for fatigue normalrule out KRISTIN-she has order for sleep studyf/u after sleep study done [id number] KATHARINE Gallardo (Adult Med) [address] [place] [address] [phone] 0 04/13/2018 09:42:13 04/13/2018 12:19:11 Serum creatinine above reference range 389009014 R79.89 Patient has been alternatin g 7.5mg meloxicam and 15mg meloxicam every other day for the last month - will recheck creatinine and GFR I discussed with patient that different medication s are metabolize d through different organs and NSAIDs are metabolize d through the kidneys and our goal is to protect those organs and that is the reason we needed to stop the meloxicamA dvised that we can monitor her kidney function but if the numbers become off again she is going to need to stop the medication Advised that right now I feel it is in her best interest to take Tylenol but she says she needs an NSAID - will determine what to do based on BMP Plantar fasciitis 623386 003 M72.2 Right heel - now followed by Dr. Martinez [id number] FREDERICK Manzanares (Adult Med) [address] [place] [address] [id number] 0 06/25/2018 11:37:56 06/28/2018 10:04:05 Hypothyroidism 40383892 E03.9 [id number] FREDERICK Manzanares (Adult Med) [address] [place] [address] [phone] 0 07/09/2018 11:46:40 07/12/2018 09:17:15 Acute upper respiratory infection 10181110 J06.9 Patient was seen in urgent care, has taken all of the medication , symptom resolved. [id number] ISABELLA MCLEROY-Herlinda Main (Adult Med) [address] [place] [address] 09/15/2018 15:48:28 09/16/2018 15:46:55 Pain in right heel [id number] 452501 M79.671 -Pt reports history of plantar fasciitis managed with steroid injection by podiatry-P odiatry last seen in Nov-Pt requesting referral for follow up as she has not visited in close to 6 mos-Pain in heal more prominent upon awakening. NSAID not effective in modifying pain Pain in right knee 63936 20598 95977 M25.561 -Reports pain in right knee-Histo rical XR reveals OA. Pt takes Meloxicam and does not feel it is as effective. -Possibly increased demand on knee secondary to plantar fasciitis- Pt to follow with podiatry and return for eval of knee in terms of making medication changes or referring to PT Hypothyroidism 19292485 E03.9 -Pt denies changes, disease state stable-RF to pharmacy of choice Health Concerns Section Related Observation LastModified by Organization Detai ls LastModified Time None Recorded Concern Status LastModified by Organization Details LastModified Time None Recorded Advance Directives Directive N: Payers Encounter Date Sequence Insurance Name Policy Number Policy Manzanares Covered Member ID Manzanares Member ID Guarantor Name 02/08/2018 1 [place] Conchita A Gehling [id number] Conchita A Gehling 02/08/2018 2 [employer] (MEDICARE SUPPLEMENT) Conchita A Gehling [id number] Conchita A Gehling 04/13/2018 1 [place] Conchita A Gehling [id number] Conchita A Gehling 04/13/2018 2 [employer] (MEDICARE SUPPLEMENT) Conchita A Gehling [id number] Conchita A Gehling 06/25/2018 1 [place] Conchita A Gehling [id number] Conchita A Gehling 07/09/2018 1 [place] Conchita A Gehling [id number] Conchita A Gehling 09/15/2018 1 [place] Conchita A Gehling [id number] Conchita A Gehling 09/15/2018 2 [employer] Conchita Mcmahan [id number] Conchita Mcmahan Notes Date Note Type Note Provider Name and Address Organization Details Recorded Time 8 text/html pt here for R heel pain and fatigue seen for fatigue a few months ago labs normal, levothyroxine was decreased stopped meloxicam for increased creatinine-now normal ordered sleep study, she has not scheduled it yet having pain in R heel tried tramadol and didnt help heel pain works one day per week and this makes her heel hurt for days states tramadol made drowsy uses orthotics, elevates feet, uses ice when needed has affected her ADLs, she avoids standing for long periods of time still with marked fatigue has good sleep hygeine DIDIER CRAIN, LAST SORTER-C Attn: Accounting,[address] [facility], [place], [address], [facility] 02/08/2018 15:48:48 8 text/html 67YO female presents for meloxicam f/u. Patient states that she was very dissatisfied with her appointment with Dr. Collier. States that she had gone to him for heel pain since she had to stop the meloxicam and that all Dr. Collier wanted to talk about with her was her thryoid numbers and thyroid medication which was adjusted. States that she wouldn't have minded this if he was her PCP but that she was specifically there for heel pain. States that he gave her tramadolShe then saw Ken Crain who ordered a foot xray and sent her to podiatry, Dr. Martinez, and she was dx'ed with plantar fasciitis and finally got relief 2 weeks ago. She is unhappy because the pain started in 12/2017, 3 months ago, and she just got relief 2 weeks ago. She was also upset because she had called the office and asked to speak with Ken but was told she was not able to. She really is here because she wants to be on the meloxicam for arthritis and now that her kidney number normalized she does not see why she cannot be on the medication. She talked with Dr. Martinez and he told her since she has meds at home to take them again since her numbers are better. She brooke been taking 7.5mg one day and then 15mg the next and alternating daily. She states that she needs this medication. Barb Rene PA-C Attn: Accounting,[address] [facility], [place], [address], [facility] 04/13/2018 10:44:01 9 text/html Patient presented today for medication refill, denies having any complaints today and the she is feeling, fine, will come back in in three months for blood work. BRITTA Iniguez NP Attn: Accounting,[address] [facility], [place], [address], [facility] 06/25/2018 13:27:32 9 text/html CC Pt still sick, has gone to Urgent Care 07/01/18 put her on antibiotic, steriods, breathing treatment. Pt is still coughing a little, Pt has been sleeping sitting for 3 days, didn't get much sleep, Has started sleeping lying down and sleeping better, still having a lot of pain in the rib cage area. No chest Xray has been done. When pt coughs a little mucus comes up grayish/white. This has been going on for over two weeks. patient feeling better today just a little fatigue and regaining strength every day. still taking medication prescribed. BRITTA Iniguez NP Attn: Accounting,[address] [facility], [place], [address], [facility] 07/09/2018 14:12:08 9 text/html Musculoskeletal PainReported bypatient.Location:pain is not radiating; right knee; right foot Quality:dull Severity:pain level with meds 7/10 Duration:present for >12 months Timing:constant Context:Previous XR Alleviating factors:relieved by changing position Aggravating factors:twisting Associated Symptoms:no fever; no weak limbs; no tingling; no numbness of the legs/feet; no incontinence ADL (Activities of Daily Living)improve with medication Medicationspain relief with current medications %; Minimal as feels plantar faciThyroidReported bypatient.Quality:not changing Context:normal thyroid levels;history of thyroid disease Exerciseno exercise; limited due to knee and foot pain Associated Symptoms:no cold intolerance; no heat intolerance; no weight loss; no weight gain; no double vision; no dry eyes; no hoarseness; no difficulty swallowing; no neck masses; no deepening of the voice; no fast heart rate; no increased blood pressure; no palpitations; no chest pain; no chest tightess or pressure; no constipation; no diarrhea; no vomiting; no decreased appetite; no loose stools; no irregular menstrual periods; no excessive sweating; no joint pain; no numbness; no tingling of the hands or feet; no dry skin; no tremor; no nervousness; no anxiety; no depression; no fatigue; no sleep difficulties; no skin changes; no hair changesNotes:Hypothyroid ism f/u and med RF. Reports disease state as stable at this time. HUMAIRA MCELROY Attn: Accounting,[address] [place], [address], [facility] 09/15/2018 17:32:53 OBGyn Episode No OBEpisode recorded.
--- OUTSIDE RECORDS SUMMARY | 2024-07-07 12:55 | XMS_ITS | Encounter Summary ---
Author Organization [facility] [employer] [facility] Address [address] [place] [phone] Phone Care Team Providers Care Popcorn Vendor Name Role Phone Abraham Jones MD Primary Care Provider [phone] Encounter Details Date Type Department Care Team (Late st Contact Info) Description 04/25/2024 Office Communication [place] [employer] [facility] [place] [address] [place] [address] 1 [place] [address] [place] [address] [place] [address] 1 [place] [address] Social History Tobacco Use Types Packs/Day Years Used Date Smoking Tobacco: Never Assessed Comments Unknown Sex and Gender Information Value Date Recorded Sex Assigned at Not on file Legal Sex Female 11:40 AM EDT Gender Identity Not on file Sexual Orientation Not on file documented as of this encounter Miscellaneous Notes * Telephone Encounter - El Lindquist DO - 04/25/2024 3:05 PM CST Educqtib pleqwe documented in this encounter Plan of Treatment Upcoming Encounters Date Type Department Care Team (Late st Contact Info) Description 05/02/2025 12:30 PM MEDIA PLANNER / BUYER Office Visit [place] [employer] [facility], [facility] [address] [facility] [address] [place] [address] El Lindquist DO [address] [place] [address] 1 [place] [address] documented as of this encounter Visit Diagnoses Not on filedocumented in this encounter Care Teams Popcorn Vendor Relationship Specialty Start Date End Date Abraham Jones MD [address] [facility], [address] [place] [address] PCP - General Internal Medicine 04/21/23 documented as of this encounter
--- OUTSIDE RECORDS SUMMARY | 2024-07-07 12:55 | XMS_ITS | Encounter Summary ---
Author Organization [facility] [employer] [facility] [email or web address] [facility] Address [address] [place] [phone] Phone Care Team Providers Care Supervisor Screen Printing Name Role Phone Abraham Jones MD Primary Care Provider [phone] Encounter Details Date Type Department Care Team (Late st Contact Info) Description 04/25/2024 Office Communication [employer] [email or web address] [address] [address] El Lindquist DO [address] [facility] 1 [place] [address] Social History Tobacco Use Types Packs/Day Years Used Date Smoking Tobacco: Never Assessed Comments Unknown Sex and Gender Information Value Date Recorded Sex Assigned at Not on file Legal Sex Female 11:40 AM EDT Gender Identity Not on file Sexual Orientation Not on file documented as of this encounter Miscellaneous Notes * Telephone Encounter - Jane Butler MA - 06/27/2024 12:27 PM WILDLIFE CONSERVATION OFFICER [facility] Education Communication Record Name: Conchita Mcmahan : 1950 Location: [facility] Date: 06/27/2024 Dr. Lindquist Your patient's modality preference currently is Undecided Educated on stages/symptoms, nutrition, coping, access placement and treatment options. Resources provided on kidney transplant. She was confused about her stage of kidney disease and thought it was stage 1. I explained multiplelab tests are drawn, and I would check if see if any lab results were posted I could see if the information was correct. She was upset and confused about why she was placed in the class, and said shewas provided with different information and wanted to leave. ESKD risk score 2 years is 35% Please let me know if you have any questions. Jane * Telephone Encounter - Jane Butler MA - 05/27/2024 1:09 PM CST Kidney Care Class scheduled for Jun 27, 2024 * Telephone Encounter - Jane Butler MA - 04/27/2024 3:16 PM CST Thank you for the referral! * Telephone Encounter - El Lindquist DO - 04/25/2024 3:33 PM CST Education please. ESKD risk score 2 ye\ars is 35% documented in this encounter Plan of Treatment Upcoming Encounters Date Type Department Care Team (Late st Contact Info) Description 05/02/2025 12:30 PM WILDLIFE CONSERVATION OFFICER Office Visit [facility], [facility] [address] [facility] [address] [place] [address] El Lindquist DO [address] [facility] [address] [place] [address] documented as of this encounter Visit Diagnoses Not on filedocumented in this encounter Care Teams Supervisor Screen Printing Relationship Specialty Start Date End Date Abraham Jones MD [address] [facility], [address] [place] [address] PCP - General Internal Medicine 04/21/23 documented as of this encounter
--- OUTSIDE RECORDS SUMMARY | 2024-07-07 12:56 | XMS_ITS | Data Portability ---
[facility], Main Office Address [address] [place] [address] Care Team Providers Care Engraver Optical Frames Name Role Phone ABRAHAM JONES Primary Care Provider [phone] ABRAHAM JONES Referring Provider Dunwello VISION Tractor Sweeper Operator MALISSA JADE Amusement Park Worker MATEO HECTOR Six Color Press Operator HOLLY LEÓN Hematology/Oncology [phone] [facility] Snubber [phone] Assessment Encounter Date Assessment Date Assessment LastModified by Organization Details LastModified Time 04/18/2024 04/18/2024 This note is dictated and transcribed by Hail Vars[employer] Direct Software. Control Operator Flow Coat variances may occur. Despite proofreading, typographical errors may occur. Occasional wrong-word or 'jptkd-t-mjtl' substitutions may have occurred due to the inherent limitations of voice recording. Read the chart carefully and recognize, using context, where substitutions have occurred. Not available 05/05/2024 10:19:43 05/12/2024 05/12/2024 09/04/2022: TSH 0.335L, FT4 1.79 A1C 6.2 Gluc 113, Glob 2.1, TP WNL Chol 204, LDL 126 CBC: WNL 01/01/2023: HCV: Neg A1C 6.0 TSH 0.239L, FT4 1.30 H/H 16.0/47.7 LDL 124 03/20/2023: A1C 5.9 Gluc 114, TP 6.2, Glob 2.3L TSH 0.258L, FT4 1.50 11/06/2023: Gluc 110, BUN 22, TP 6.2, Glob 1.8 A1C 5.9 TSH 0.029L, FT4 1.62 04/18/2024: TSH 0.373L, FT4 1.31 A1C 6.0 Not available 05/11/2024 18:34:36 06/21/2024 06/21/2024 This note is dictated and transcribed by Estrada [employer] Direct Software. Control Operator Flow Coat variances may occur. Despite proofreading, typographical errors may occur. Occasional wrong-word or 'lhtwx-i-czyj' substitutions may have occurred due to the inherent limitations of voice recording. Read the chart carefully and recognize, using context, where substitutions have occurred. Not available 06/21/2024 15:49:39 06/27/2024 06/27/2024 73-year-old female who presents for evaluation of her right wrist. She reports pain in April located over the radial aspect of the wrist in the base of the thumb. She denies having any acute injury. It is worse with activities and lifting, she has tried icing without any improvement. She is right-hand dominant. Denies smoking or other medical problems. 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 Review of systems per patient questionnaire Physical exam: She has tenderness to prep the patient over the 1st extensor compartment. No tenderness over the thumb CMC or elsewhere in the hand and wrist. Negative grind. Positive Gypsy. X-rays of the wrist were reviewed, demonstrating no acute bony abnormality She has de Quervain tenosynovitis. We will treat this with a course of conservative management. We gave her orders for meloxicam and therapy, and we will also give her a thumb spica brace. We discussed that this condition typically gets better on its own without requiring surgery, we will see her back in 6 weeks for recheck. At that time if she has persistent symptoms we would consider doing a cortisone injection. She is in agreement with the plan. [email or web address] Not available 06/27/2024 09:49:44 Plan of Treatment Reminders Order Date Submit Date Provider Last Modified By Organization Details Last Modified Time Details Appointments Any 15 2024 08:30A José Miguel enriquez MD Not available Not available Not available Lab glycohemo globin, total, blood [address] (Lab), [address] [place], [address], 05/31/2024 09:15:55 microalbu min, urine [address] (Lab), [address] [place], [address], 05/31/2024 09:15:55 lipid panel, serum [address] (Lab), [address] [place], [address], 05/31/2024 09:15:55 CBC w/ auto diff [address] (Lab), [address] [place], [address], 05/31/2024 09:15:55 T4, free, serum [address] (Lab), [address] [place], [address], 05/31/2024 09:15:55 CMP, serum or plasma [address] (Lab), [address] [place], [address], 05/31/2024 09:15:55 TSH, serum or plasma [address] (Lab), [address] [place], [address], 05/31/2024 09:15:55 Referral physical therapist referral - Please contact pt to schedule apt for R wrist/ R thumb. Thanks 2024 025 [facility] [place], [address] [facility], [place], [address], 07/04/2024 14:29:33 gynecolog ist referral - Please call patient to schedule. 2023 024 MILES Allen MD, [address], [address], [place], [address], 05/17/2024 18:30:54 podiatris t referral 2023 024 [email or web address] Mateo Hector DPM, [address] [facility], [address], [place], [address], 05/31/2024 09:15:55 orthopedi c surgeon referral - Please call patient to schedule. 2023 024 LOUIE Gutierrez MD, [address] [facility], [place], [address], 06/27/2024 09:55:53 Procedures None recorded. Surgeries None recorded. Imaging XR, wrist, 3 or more view 2024 025 [email or web address] [email or web address] [place], [address] [facility], [place], [address], 06/27/2024 10:19:05 Medication Orders Mobic 15 mg tablet 2024 025 [email or web address] [id number] [facility], [address] [facility], [place], [address], 06/27/2024 10:19:05 Patient TargetsNo targets recorded. Patient Instructions Encounter Date Encounter Id Patient Instructions Last Modified By Organization Details Last Modified Time 05/12/2024 [id number] diabetic eye exam* Not available 05/31/2024 09:15:55 Reason for Referral Six Color Press Operator Referral for Type 2 diabetes mellitus without complication Referring Physician: Abraham Jones, Internal Medicine, Encounter Date: 05/12/2024 Orthopedic Surgeon Referral for Pain of right wrist Please call patient to schedule. Referring Physician: Abraham Jones, Internal Medicine, Encounter Date: 05/12/2024 Clinical Trial Assistant Referral for Gy necologic examination Please call patient to schedule. Referring Physician: Abraham Jones, Internal Medicine, Encounter Date: 05/12/2024 Physical Therapist Referral for Pain of right wrist R wrist Please contact pt to schedule apt for R wrist/ R thumb. Thanks Referring Physician: Eliseo Gutierrez, Orthopedic Surgery, Encounter Date: 06/27/2024 Results Created Date Observation Date Name Description Value Unit Range Abnormal Flag Note LastModifiedBy Organization Detail LastModifiedTime 12/28/19 24 12/25/2023 imagi ng/di agnos tic resul t No observ ation record ed. [facility] [address], [place], [address], 12/28/2023 14:01:18 01/19/20 24 01/19/2024 imagi ng/di agnos tic resul t No observ ation record ed. [facility] [address], [place], [address], 01/19/2024 12:57:04 05/09/20 24 05/09/2024 DEXA, axial skele ton [facility] [place] [id number] Patien t Name: AYSE SALAZARAudrey Yañez Access ion #: [id number] Sex: F : 1950 1 Dictat ed By: Kezia Garzon Attend ing Physic giacomo: BETY WEN Ordermarie huerta Physic giacomo: BETY WEN Exam Date: 2023 07:33 AM Exam Name: XR DEXA-H IPS PELVIS SPINE Admitt ing Diagno sis(es ): INDICA TION: osteop orosis DEXA SCAN: BONE DENSIT Y REPORT : AP SPINE (L1-L4 ) : T Score: 1.7 LEFT HIP TOTAL : T Score: 1.2 RT HIP TOTAL : T Score: 1.4 TOTAL BILAT HIP AVG: T Score: 1.3 IMPRES SELVIN: Normal bone minera lizati on. ------ ------ ------ ------ ------ ------ ------ ------ ----- *FRAX versio n 3.08. Fractu re probab ility calcul ated for an untrea bryan patien t. Fractu re probab ility may be lower if the patien t has receiv ed treatm ent. T-scor e: compar mary by paris rd deviat ion (SD) to a young adult popula tion, matche d for sex and ethnic ity (used for postme nopaus al women and men >50 years) and classi fied by WHO criter ia. -1.0: normal <-1.0 to >-2.5: osteop enia -2.5: osteop orosis Page 1 [facility] [address] [place] [address] Patishin garcia Name: EVELYN SALAZAR Access ion #: [id number] Sex: F : 1950 1 Dictat ed By: Kezia Garzon Attend ing Physic giacomo: SONAM [facility]COS [facility] Physic giacomo: BETY WEN Exam Date: 2023 07:33 AM Exam Name: XR DEXA-H IPS PELVIS SPINE Admitt ing Diagno sis(es ): -2.5 plus fragil ity fractu re: severe osteop orosis Z-scor e: compar ed by SD to an age, sex, and ethnic ity popula tion (used for premen opausa l women, men <50 years, and childr en instea d of T-scor e WHO criter ia 4) <-2.0: below expect ed range/ low bone densit y for age, and a cause should be sought Electr onical ly Signed by: Kezia Garzon at 2023 07:50: 05 AM Page 2 INTERFACE [facility] (Imaging) [address] [place], [address], 05/09/2024 08:54:16 05/09/20 24 05/09/2024 imagi ng/di danielos tic resul t No observ ation record ed. [facility] [address] [facility], [place], [address], 05/09/2024 08:56:46 05/09/20 24 05/09/2024 scree jami breas t sandra, bilat [facility] [address] [place] [address] Patien t Name: EVELYN SALAZAR Access ion #: [id number] Sex: F : 1950 1 Dictat ed By: Kezia Garzon Attend ing Physic giacomo: BETY WEN Physic giacomo: BETY WEN Exam Date: 2023 07:35 AM Exam Name: MG SCRN BREAST SANDRA BILAT Admitt ing Diagno sis(es ): PROCED URE: SCREEN ING MAMMOG EFREM WITH TOMOSY NTHESI S REASON FOR EXAM: screen ing mammog efrem COMPAR MARY: MG SCRN BREAST SANDRA BILAT on DOS: , MG SCRN BREAST SANDRA BILAT 3D on DOS: 2, MG SCRN BREAST SANDRA BILAT 3D on DOS: TECHNI QUE: Bilate ral CC and MLO views obtain ed. Images were obtain ed using a Digita l Tomosy nthesi s Unit. Standa rd 2D and 3D Tomosy nthesi s images were review ed. This examin ation was analyz ed using Lunit Insigh t DBT/MM G, an AI softwa re develo ped to enhanc e the effect ivenes s of breast cancer screen ing with mammog nnaette. FINDIN GS: BREAST COMPOS ITION: B - There are scatte red areas of fibrog landul ar densit y. In the right breast , no asymme trical parenc hymal patter n, otf ectura l distor tion, pleomo rphic microc alcifi cation s or masses . In the left breast , no asymme trical parenc hymal patter n, otf ectura l distor tion, pleomo rphic microc alcifi cation s or masses . IMPRES SELVIN: No findin gs of malign alejo. RECOMM ENDATI ON: Recomm end annual mammog efrem. ASSESS MENT: Page 1 [facility] [address] [place] [address] [phone] Patien t Name: EVELYN SALAZAR Access ion #: [id number] Sex: F : 1950 1 Dictat ed By: Kezia Garzon Attend ing Physic giacomo: SONAM ARCOS Orderi Physic giacomo: BETY WEN Exam Date: 2023 07:35 AM Exam Name: MG COURTNEY BREAST SANDRA BILAT Admitt ing Diagno sis(es ): BIRADS : 1 - Negati ve Electr onical ly Signed by: Kezia Garzon at 2023 07:56: 40 AM Page 2 INTERFACE [facility] (Imaging) [address] [place], [address], 05/09/2024 09:01:16 05/09/20 24 05/09/2024 MAMMO , scree jami, digit al, bilat eral No observ ation record ed. [facility] [address] [place], [address], 05/09/2024 09:03:28 06/27/19 25 XR, wrist , 3 or more view No observ ation record ed. [email or web address] [address] [facility], [place], [address], 06/27/2024 09:32:47 Result Notes None recorded. Problems Name Problem SNOMED Code Status Onset Date Resolution Date Notes Provider Name and Address Organization Details Recorded Time Urinary incontinen ce 152431267 Active 2022 Not Available [facility] 3 22:33:26 COVID-19 692789579 Active 2022 Not Available [facility] 3 22:33:26 Female stress incontinen ce 82157789 Active 2022 aRma Brambila APRN [address], [address], [place], [address] , [employer] 4 07:50:48 Anxiety 90854010 Active 2022 Rama Brambila APRN [address], [address], [place], [address] , [facility] 4 07:51:13 Hyperlipid emia 57554568 Active 2022 Rama Brambila APRN [address], [address], [place], [address] , [facility] 4 07:50:57 Chronic kidney disease 181956104 Active 2022 Rama Brambila APRN [address], [address], [place], [address] , [facility] 4 07:50:28 Hypoprotei nemia 2177494 Active 2022 Not Available [facility] 3 22:33:26 Hypothyroi dism 12973850 Active 2022 Rama Brambila APRN [address], [address], [place], [address] , [facility] 4 07:51:32 Obesity 355951037 Active 2022 Rama Brambila APRN [address], [address], [place], [address] , [facility] 4 07:50:59 Gastroesop hageal reflux disease without esophagiti s 820588885 Active 2022 Rama Brambila APRN [address], [address], [place], [address] , [facility] 4 07:50:51 Erythrocyt osis 455247798 Active 2022 Not Available [facility] 3 22:33:26 Pain of left hand 1038296498027 03 Active 2022 Not Available [facility] 3 22:33:26 Bilateral hearing loss 38209070 Active 2022 Rama Brambila APRN [address], [address], [place], [address] , [facility] [employer] [facility] 4 07:51:24 Fracture of triquetral bone of wrist 7889335 Active 2022 Not Available [facility] 3 22:33:26 Impaired glucose tolerance 0221393 Active 2022 Mateo Hector DPM [address], [address], [place], [address] , [facility] [employer] [facility] 3 15:06:45 Congenital pes cavus 887092545 Active 2022 Rama Brambila APRN [address], [address], [place], [address] , [facility] [employer] [facility] 4 07:50:32 Hammer toe 226833282 Active 2022 Rama Brambila APRN [address], [address], [place], [address] , [facility] [employer] [facility] 4 07:50:53 Bilateral hearing loss 55173199 Active 2023 Abraham santana MD [address], [address], [place], [address] , [facility] [employer] [facility] 4 09:40:31 Pain of right wrist 1233857983290 00 Active 2023 Abraham santana MD [address], [address], [place], [address] , [facility] 4 10:31:03 Closed fracture of left wrist 2566406713259 9101 Active 2021 Not Available [facility] 3 22:33:26 Congenital pes cavus of right foot 5562628181356 9101 Active 2020 Not Available [facility] 3 22:33:26 Plantar fasciitis of right foot 6290411738819 9101 Active 2017 Not Available [facility] 3 22:33:26 Hammer toe 468658949 Active 2019 Not Available [facility] 3 22:33:26 Disorder of thyroid gland 83474568 Active Rama Brambila APRN [address], [address], [place], [address] , [facility] 4 07:50:43 Type 2 diabetes mellitus without complicati on 043948272 Active 2019 Not Available [facility] 3 22:33:26 Pain of left wrist 1398106174178 02 Active 2021 Not Available [facility] 3 22:33:26 Osteoarthr itis 918740994 Active Rama Brambila APRN [address], [address], [place], [address] , [facility] 4 07:51:06 Foot pain 05558128 Active 2019 Not Available [facility] 3 22:33:26 Pruritic rash 11771058 Active 2021 Not Available [facility] 3 22:33:26 Diabetes mellitus 40404708 Active 2020 Rama Brambila APRN [address], [address], [place], [address] , [facility] 4 07:50:40 Problem Notes None recorded. Procedures Surgical History Date Name Laterality Status Provider Name and Address Organization Details Recorded Time 01/08/20 24 Chronic care management services completed Navya Winston [facility] [employer] [facility] [employer] [facility] 01/08/2024 14:14:35 11/12/19 24 Medicare Wellness CPT Code, subsequent completed Hever Sam LPN [employer] [facility] [employer] [facility] 11/10/2023 13:12:24 11/12/19 24 Advanced Care Planning completed Hever Sam LPN [employer] [facility] [employer] [facility] 11/12/2023 10:14:18 07/17/19 23 repair of stress incontinence by suprapubic sling completed Cynthia Tony [facility] [employer] [facility] [employer] [facility] 09/09/2022 09:06:56 06/25/19 22 Most Recent Bone Density completed Not Available Replaced by [facility] 07/23/2022 04:43:37 04/26/20 19 Date of Last Colonoscopy completed Not Available [facility] 07/23/2022 04:43:36 04/25/20 19 Colonoscopy completed Not Available [facility] 07/24/19 23 04:43:40 12/01/19 19 Total knee arthroplasty completed Not Available [facility] 07/23/2022 04:43:40 thyroidectomy completed Not [facility] 07/23/2022 04:43:40 Orthopedic Surgery completed Not Available [facility] 07/23/2022 04:43:40 Cataract Surgery completed Cynthia agarwal [facility] [employer] [facility] [employer] [facility] 11/12/2023 09:51:35 Imaging Results Imaging Date Name Status LastModified by Organ [facility] Details LastModified Time 12/25/2023 imaging/diagno stic result active [facility] [address], [place], [address], 12/28/2023 14:01:18 01/19/2024 imaging/diagno stic result active [facility] [address], [place], [address], 01/19/2024 12:57:04 05/09/2024 DEXA, axial skeleton active INTERFACE [facility] (Imaging) [address] [place] [address], [address], 05/09/2024 08:54:16 05/09/2024 imaging/diagno stic result active [facility] [address] [place], [address], 05/09/2024 08:56:46 05/09/2024 screening breast sandra, bilat active INTERFACE [facility] (Imaging) [address] [place], [address], 05/09/2024 09:01:16 05/09/2024 MAMMO, screening, digital, bilateral active [facility] [address] [place], [address], 05/09/2024 09:03:28 06/27/2024 XR, wrist, 3 or more view completed [address] [facility], [place], [address], 06/27/2024 09:32:47 Procedure Notes None recorded. Medical Equipment None Reported. Allergies Allergen ID Allergen Name Allergen Category Reaction Reaction Severity Criticality Documentation Date Start Date Code Code System Note Provider Name and Address Organization Details Recorded Time 04600 phenytoin medicatio n Not available Not available Not available 09/21/2023 8183 RxNorm Other react ions and sever ities : 'Adve rse react ion to subst ance' . Rama Brambila APRN [address] [facility], [address], [place], [address], [place] - [place] [employer] 4 07:52:39 8094 Dilantin medicatio n rash Not available Not available 07/23/2022 0 RxNorm Not Available [facility] 3 05:03:58 Medications Name Sig Start Date Stop Date Status Note LastModified by Organization Details LastModified Time celecoxib 200 mg capsule 02/01 completed Not Available Not Available Not Available cetirizine 10 mg tablet TAKE 1 TABLET BY MOUTH EVERY DAY 07/21 completed Not Available Not Available Not Available azithromyci n 250 mg tablet TAKE 2 TABLETS (500 MG) BY ORAL ROUTE ONCE DAILY FOR 1 DAY THEN 1 TABLET (250 MG) BY ORAL ROUTE ONCE DAILY FOR 4 DAYS 09/27 completed Not Available Not Available Not Available fluconazole 150 mg tablet TAKE 1 TABLET TODAY 04/16 completed Not Available Not Available Not Available Claritin 10 mg tablet Take 1 tablet every day by oral route as needed. 09/27 completed Not Available Not Available Not Available flurbiprofe n 0.03 % eye drops INSTILL ONE DROP INTO LEFT EYE FOUR TIMES DAILY DIRECTED BY POST OP DROP INSTRUCTI ON SHEET 11/11 completed Not Available Not Available Not Available ondansetron HCl 4 mg tablet Take 1 tablet twice a day by oral route as needed. 04/16 completed Not Available Not Available Not Available cyanocobala min (vit B-12) 1,000 mcg tablet TAKE 1 TABLET BY MOUTH EVERY DAY 05/12 completed Not Available Not Available Not Available metronidazo le 500 mg tablet Take 1 tablet 3 times a day by oral route. 04/16 completed Not Available Not Available Not Available ciprofloxac in 500 mg tablet TAKE 1 TABLET BY MOUTH TWICE A DAY FOR 7 DAYS 04/16 completed Not Available Not Available Not Available sulfamethox azole 800 mg-trimetho prim 160 mg tablet TAKE 1 TABLET BY MOUTH TWICE A DAY 11/11 completed Not Available Not Available Not Available peg-electro lyte solution 420 gram oral solution 06/02 completed Not Available Not Available Not Available tramadol 50 mg tablet TAKE 1 TABLET BY MOUTH TWICE A DAY NEEDED 03/06 completed Not Available Not Available Not Available levothyroxi ne 75 mcg tablet TAKE 1 TABLET EVERY DAY active Not Available Not Available No t Available Aleve 220 mg tablet Take 1 tablet every 12 hours by oral route. 12/06 completed Not Available Not Available Not Available meloxicam 7.5 mg tablet active Not Available Not Available Not Available Mobic 15 mg tablet Take 1 tablet every day by oral route. 2024 active Not Available Not Available Not Avai lable oxycodone-a cetaminophe n 5 mg-325 mg tablet 02/01 completed Not Available Not Available Not Available prednisolon e acetate 1 % eye drops,suspe nsion INSTILL 1 DROP 3 TIMES PER DAY STARTING AFTER SURGERY, CONTINUIN G FOR 3 WEEKS 11/11 completed Not Available Not Available Not Available ciprofloxac in 0.3 % eye drops INSTILL 1 DROP 3 TIMES A DAY INTO SURGICAL EYE BEGIN 2 DAYS PRIOR TO SURGERY, CONTINUE FOR 1 WEEK 11/11 completed Not Available Not Available Not Available levothyroxi ne 50 mcg tablet qd 05/26 completed Not Available Not Available Not Available hydrocodone 7.5 mg-acetamin ophen 325 mg tablet 12/06 completed Not Available Not Available Not Available pantoprazol e 40 mg tablet,tim yed release Take 1 tablet every day by oral route. 04/30 completed Not Available Not Available Not Available nystatin-tr iamcinolone 100,000 unit/g-0.1 % topical cream APPLY TO THE AFFECTED AREA(S) BY TOPICAL ROUTE 2 TIMES PER DAY IN THE MORNING AND EVENING 11/11 completed Not Available Not Available Not Available ergocalcife rol (vitamin D2) 1,250 mcg (50,000 unit) capsule Take 1 capsule every week by oral route for 60 days. 12/12 completed Not Available Not Available Not Available levofloxaci n 750 mg tablet Take 1 tablet every day by oral route. 04/16 completed Not Available Not Available Not Available methylpredn isolone 4 mg tablets in a dose pack 10/28 completed Not Available Not Available Not Available fluticasone propionate 50 mcg/actuati on nasal spray,suspe nsion 1-2 Sprays each Nostril once daily as needed 09/27 completed Not Available Not Available Not Available amoxicillin 875 mg-potassiu m clavulanate 125 mg tablet 10/28 completed Not Available Not Available Not Available rosuvastati n 10 mg tablet TAKE 1 TABLET EVERY DAY active Not Available Not Available No t Available rosuvastati n 20 mg tablet Take 1 tablet every day by oral route for 90 days. 11/11 completed Not Available Not Available Not Available Vitamin D OTC-1 tab po qd 2019 active Not Available Not Available Not Avai lable hydrocodone -acetaminop hen 7.5 mg-325 mg/15 mL (15 mL) oral solution Take 15 mL every 4 hours by oral route as needed. 12/06 completed Not Available Not Available Not Available Myrbetriq 50 mg tablet,exte nded release Take 1 tablet every day by oral route for 90 days. 11/11 completed Not Available Not Available Not Available Eliquis 2.5 mg tablet 02/01 completed Not Available Not Available Not Available Paxlovid 300 mg (150 mg x 2)-100 mg tablets in a dose pack TAKE 3 TABLETS BY MOUTH TWICE A DAY FOR 5 DAYS DIRECTED 08/28 completed Not Available Not Available Not Available Vitals Date Recorded Body height Provider Name an d Address Organization Details Last Updated DateTime 01/08/2024 162.56 cm Navya Winston [facility] [employer] [facility] 01/08/2024 14:12:40 Date Recorded Body height Body mass index (BMI) Body weight Heart rate Respiratory rate Oxygen saturation Oxygen saturation in Arterial blood by Pulse oximetry Systolic blood pressure Diastolic blood pressure Provider Name and Address Organization Details Last Updated DateTime 4 162.56 cm 29.5 kg/m2 37225.8 9 g 81 /min 14 /min 98 % 98 % 138 mm[Hg] 90 mm[Hg] Aline Mattson Fishki [facility] [employer] [facility] 4 16:07:58 Date Recorded Body height Body mass index (BMI) Body weight Body temperature Heart rate Systolic blood pressure Diastolic blood pressure Provider Name and Address Organization Details Last Updated DateTime 4 162.56 cm 30.2 kg/m2 01763.2 6 g 97.6 [degF] 78 /min 126 mm[Hg] 80 mm[Hg] ROBERTO Arellano HI [employer] [facility] [employer] [facility] 4 09:49:36 Date Recorded Body height Body mass index (BMI) Body weight Heart rate Respiratory rate Oxygen saturation Oxygen saturation in Arterial blood by Pulse oximetry Systolic blood pressure Diastolic blood pressure Provider Name and Address Organization Details Last Updated DateTime 5 162.56 cm 30.2 kg/m2 96053.2 6 g 78 /min 14 /min 98 % 98 % 124 mm[Hg] 82 mm[Hg] Aline Mattson Fishki [facility] 5 15:26:14 Date Recorded Body height Body mass index (BMI) Body weight Pain severity - 0-10 verbal numeric rating [Score] - Reported Provider Name and Address Organization Details Last Updated DateTime 06/27/2024 162.56 cm 30.2 kg/m2 43551.26 g 6 ROBERTO Momin [place] - [facility] [place] [employer] [facility] 06/27/2024 09:30:20 Social History Question Answer Notes LastModified by Organization Details LastModified Time Tobacco Smoking Status Former Smoker quit 16+ Not Available [facility] 07/23/2022 04:29:54 Do You Have An Advance Directive? No MIGRATION.0301 [id number] Information not available 07/23/2022 What Is Your Level Of Alcohol Consumption? None [email or web address] Information not available 11/12/2023 Do You Wear A Helmet When Biking? No N/A [email or web address] Information not available 11/12/2023 Are You Blind Or Do You Have Difficulty Seeing? No MIGRATION.0301 998827 Information not available 07/23/2022 Is Blood Transfusion Acceptable In An Emergency? Yes [email or web address] Information not available 11/12/2023 What Is Your Level Of Caffeine Consumption? Heavy MIGRATION.0301 995128 Information not available 07/23/2022 How Much Tobacco Do You Chew? None MIGRATION.0301 155348 Information not available 07/23/2022 What Is Your Code Status? Full Code [email or web address] Information not available 11/12/2023 In The 14 Days Before Symptom Onset, Have You Had Close Contact With A Laboratory-confi rmed COVID-19 While That Case Was Ill? No MIGRATION.0301 066583 Information not available 07/23/2022 In The 14 Days Before Symptom Onset, Have You Had Close Contact With A Person Who Is Under Investigation For COVID-19 While That Person Was Ill? 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 Yes Loss Of [place] Both Ears Information not available 11/12/2023 What Type Of Diet Are You Following? REGULAR MIGRATION.0301 141515 Information not available 07/23/2022 Which Illicit Or Recreational Drugs Have You Used? None MIGRATION.0301 686247 Information not available 07/23/2022 What Is The Highest Grade Or Level Of School You Have Completed Or The Highest Degree You Have Received? 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 No MIGRATION.0301 635910 Information not available 07/23/2022 What Is The Fluoride Status Of Your Home? Unknown MIGRATION.0301 008889 Information not available 07/23/2022 When Did You Quit Smoking? 17+yearssincelastc igarette MIGRATION.0301 564891 Information not available 07/23/2022 Are There Any Guns Present In Your Home? No MIGRATION.0301 049633 Information not available 07/23/2022 Do You Use Insect Repellent Routinely? Yes MIGRATION.0301 686167 Information not available 07/23/2022 Where Do You Live? [facility] MIGRATION.0301 179395 Information not available 07/23/2022 Presence Of Domestic Violence No [email or web address] Information not available 11/12/2023 Guns Present In The Home? No Information not available 11/12/2023 Are You Able To Care For Yourself? Yes [email or web address] Information not available 11/12/2023 Are You Blind Or Do Yo Have Difficulty Seeing? No [email or web address] Information not available 11/12/2023 Are You Deaf Or Do You Have Serious Difficulty Hearing? Yes Loss Hearing Both Ears [email or web address] Information not available 11/12/2023 General Stress Level? Moderate [email or web address] Information not available 11/12/2023 Live Alone Of With Others? Alone Information not available 11/12/2023 Do You Have A Medical Power Of Retail Wireless Sales Representative? No MIGRATION.0301 [id number] Information not available 07/23/2022 What Was The Date Of Your Most Recent Tobacco Screening? 05/12/2024 [email or web address] Information not available 05/12/2024 How Many Children Do You Have? 0 Information not available 11/12/2023 Do You Have Any Pets? No MIGRATION.0301 860952 Information not available 07/23/2022 What Is Your Relationship Status? MIGRATION.0301 315060 Information not available 07/23/2022 Do You Use Your Seat Belt Or Car Seat Routinely? Yes MIGRATION.0301 441432 Information not available 07/23/2022 Do You Have Smoke And Carbon Monoxide Detectors In Your Home? Yes MIGRATION.0301 030312 Information not available 07/23/2022 Are You Passively Exposed To Smoke? No MIGRATION.0301 354913 Information not available 07/23/2022 Are There Any Smokers In Your House? No MIGRATION.0301 974267 Information not available 07/23/2022 How Much Tobacco Do You Smoke? No Information not available 11/12/2023 Do You Feel Stressed (tense, Restless, Nervous, Or Anxious, Or Unable To Sleep At Night)? [id number] MIGRATION.0301 160912 Information not available 07/23/2022 Do You Use Any Illicit Or Recreational Drugs? No MIGRATION.0301 947709 Information not available 07/23/2022 Do You Use Sunscreen Routinely? No MIGRATION.0301 949462 Information not available 07/23/2022 Has Tobacco Cessation Counseling Been Provided? No N/A [email or web address] Information not available 11/12/2023 How Many Years Have You Smoked Tobacco? 15 MIGRATION.0301 062360 Information not available 07/23/2022 Have You Recently Traveled Abroad? No MIGRATION.0301 484671 Information not available 07/23/2022 Do You Have Any Dietary Restrictions? No MIGRATION.0301 509437 Information not available 07/23/2022 Do You Or Have You Ever Used Any Other Forms Of Tobacco Or Nicotine? No MIGRATION.0301 701156 Information not available 07/23/2022 Sex: Female Functional Status Question Answer Note LastModified by Organizat ion Details LastModified Time Do you have difficulty walking or climbing stairs? No MIGRATION.5890543 026 Information not available 07/23/2022 Do you have transportation difficulties? No MIGRATION.1503877 026 Information not available 07/23/2022 Are you able to walk? YESWOREST MIGRATION.2774298 026 Information not available 07/23/2022 Do you have difficulty doing errands alone? No MIGRATION.5057694 026 Information not available 07/23/2022 Are you able to care for yourself? Yes MIGRATION.7394453 026 Information not available 07/23/2022 Do you have difficulty dressing or bathing? No MIGRATION.2694244 026 Information not available 07/23/2022 What is your exercise level? Occasional MIGRATION.3227560 026 Information not available 07/23/2022 Mental Status Question Answer Note LastModified by Organizat ion Details LastModified Time Do you have difficulty concentrating, remembering or making decisions? No MIGRATION.[id number] 6 Information not available 07/23/2022 Family History Relationship Description Onset Age of this Age Resolved Age Notes LastModified by Organization Details LastModified Time Father Cerebrovascu lar accident MIGRATION.004 [id number] Not available 07/23/2022 04:43:44 Father Family history of stroke MIGRATION.284 [id number] Not available 07/23/2022 04:43:44 Mother Cerebrovascu lar accident MIGRATION.376 [id number] Not available 07/23/2022 04:43:44 Brother Abdominal aortic aneurysm [email or web address] Not available 2023 09:49:20 Medical History Condition Response NERVE DISEASE N BLINDNESS N RHEUMATIC FEVER N KIDNEY STONES N BLADDER PROBLEMS N MRSA N OTHER # 1 N POLIO N LUNG DISEASE/DISORDER N HISTORY OF DRUG ABUSE N RADIATION / CHEMOTHERAPY N COPD N Other # 2 N BLOOD DISEASES N EAR OR HEARING PROBLEMS N MUMPS N SHINGLES N DEPRESSION (INCLUDING POST ) N BOWEL PROBLEMS N STROKE/TIA N ULCERS N BENIGN PROSTATIC HYPERPLASIA N MEASLES N HYPOTENSION N MYOCARDIAL INFARCTION N OBESITY N GERD/NAUSEA N ANEURYSM N URINARY/BLADDER/KIDNEY PROBLEMS Y CORONARY ARTERY DISEASE (CAD) N ADDICTION CONCERNS N Impotence N ENDOMETRIOSIS N USE OF BLOOD THINNERS N SKIN PROBLEMS N GASTROINTESTINAL DISORDER N PERIPHERAL VASCULAR DISEASE N MUSCLE,JOINT OR BONE PROBLEMS N GASTROINTESTINAL BLEEDING N BLOOD CLOTS N ASTHMA N CATARACTS N ERECTILE DYSFUNCTION N VARICOSITIES N GI PROBLEMS N Low Testosterone N INFERTILITY N AIDS/HIV N CHEMOTHERAPY / RADIATION N LIVER DISEASE N MALE HYPOGONADISM N HYPERTENSION N Deficiency N TOURETTE'S N ANXIETY DISORDER Y BLOOD TRANSFUSION N ANEMIA/BLOOD DISORDER N CHRONIC EAR INFECTIONS N BRONCHITIS N TUBERCULOSIS N GLAUCOMA N FOOT PROBLEM Y DIVERTICULITIS N SLEEP APNEA N CHICKENPOX N INFECTIOUS DISEASE N PROSTATE N HEART ARRHYTHMIA N INSOMNIA N HIGH CHOLESTEROL / HYPERLIPIDEMIA Y EYE PROBLEMS N HYPERTHYROIDISM N EDEMA N CHRONIC PAIN SYNDROME N HYPOTHYROIDISM Y CAROTID BLOCKAGE N CONSTIPATION N BACK / NECK PROBLEMS N ATHEROSCLEROSIS N BREAST PROBLEMS N DIALYSIS N ECZEMA N OSTEOPOROSIS N ARTHRITIS Y APPENDICITIS N DIABETES, TYPE Y BAD TEETH N ENT N HEARTBURN / REFLUX N AUTISM SPECTRUM DISORDER (ASD) N HEPATITIS / LIVER DISEASE N GOUT N SLEEP DISORDER N ALZHEIMER'S DISEASE N Brain Problems N DEMENTIA N HERPES N SEIZURES/EPILEPSY Y HEADACHES/MIGRAINES N VASCULAR DISEASE N PACEMAKER N Blood Disorder N DIZZINESS N HEART DISEASE/HEART PROBLEMS N KIDNEY DISEASE Y MULTIPLE SCLEROSIS N CANCER: SPECIFY N CARDIAC ARRHYTHMIA N ATRIAL FIBRILLATION N Gall Stones N PULMONARY EMBOLISM N AUTOIMMUNE DISEASE N Gynecological History Statement/Question Response Menses Monthly N Abnormal Pap N Date of Last Mammogram 04/29/2022 Current Control Method None Date of Last Colonoscopy 04/26/2019 Most Recent Bone Density 06/25/2021 Sexually Active? N Obstetrics History GPAL:G 0 P 0 0 0 0 Immunizations Vaccine Type Date Status Note Provider Nam e and Address Organization Details Recorded Time COVID-19, mRNA, LNP-S, PF, 100 mcg/0.5mL dose or 50 mcg/0.25mL dose 2 completed Rama Brambila APRN [address], [address], [place], [address], [facility] [employer] [facility] 09/21/2023 07:52:04 COVID-19, mRNA, LNP-S, PF, 100 mcg/0.5mL dose or 50 mcg/0.25mL dose 2 completed Rama Brambila APRN [address], [address], [place], [address], [facility] [employer] 09/21/2023 07:52:04 zoster recombinant 3 completed Rama Brambila APRN [address], [address], [place], [address], [facility] [employer] 09/21/2023 07:52:23 zoster recombinant 3 completed ROBERTO Arellano, [place] [facility] [employer] 04/09/2023 09:20:36 COVID-19, mRNA, LNP-S, PF, jerardo-sucrose, 30 mcg/0.3 mL 3 completed Rama Brambila APRN [address], [address], [place], [address], [facility] [employer] 09/21/2023 07:52:23 COVID-19, mRNA, LNP-S, bivalent, PF, 50 mcg/0.5 mL or 25mcg/0.25 mL dose 2 completed Rama Brambila APRN [address], [address], [place], [address], [facility] [employer] [facility] 09/21/2023 07:52:04 zoster recombinant 3 completed Rama Brambila APRN [address], [address], [place], [address], [facility] [employer] 09/21/2023 07:52:23 COVID-19, mRNA, LNP-S, PF, jerardo-sucrose, 30 mcg/0.3 mL 3 completed Rama Brambila APRN [address], [address], [place], [address], [facility] [employer] [facility] 09/21/2023 07:52:23 Pneumococcal conjugate PCV20, polysaccharide [id number] conjugate, adjuvant, PF 4 completed ROBERTO Arellano, [facility] [employer] [facility] 05/12/2024 09:43:45 RSV, bivalent, protein subunit RSVpreF, diluent reconstituted, 0.5 mL, PF 4 completed ROBERTO Arellano, [facility] [employer] [facility] 05/12/2024 09:43:45 COVID-19, mRNA, LNP-S, PF, jerardo-sucrose, 30 mcg/0.3 mL 4 completed ROBERTO Arellano, [facility] [employer] [facility] 05/12/2024 09:43:45 COVID-19, mRNA, LNP-S, PF, 100 mcg/0.5mL dose or 50 mcg/0.25mL dose 1 completed Rama Brambila APRN [address], [address], [place], [address], [facility] [employer] [facility] 09/21/2023 07:52:04 COVID-19, mRNA, LNP-S, PF, 100 mcg/0.5mL dose or 50 mcg/0.25mL dose 1 completed Rama Brambila APRN [address], [address], [place], [address], [employer] [facility] 09/21/2023 07:52:04 COVID-19, mRNA, LNP-S, PF, 100 mcg/0.5mL dose or 50 mcg/0.25mL dose 1 completed Rama Brambila APRN [address], [address], [place], [address], [employer] 09/21/2023 07:52:04 Influenza, high-dose, quadrivalent, PF 2 completed Not Available [facility] 03/20/2023 22:33:26 Influenza, high-dose, quadrivalent, PF 1 completed Navya Winston [facility], Fishki [facility] [employer] [facility] 01/08/2024 14:12:50 Influenza, high-dose, quadrivalent, PF 0 completed Not Available [facility] 03/20/2023 22:33:27 Influenza, high-dose, trivalent, PF 0 completed Not Available [facility] 03/20/2023 22:33:27 Influenza, high-dose, quadrivalent, PF 3 completed Abraham Jones MD [address], [address], [place], [address], [employer] 04/09/2023 11:28:51 Influenza, high-dose, trivalent, PF 4 completed Abraham Jones MD [address], [address], [place], [address], [employer] 05/13/2024 21:55:39 Past Encounters Encounter ID Performer Location Encounter Start Date Encounter Closed Date Diagnosis/Indication Diagnosis SNOMED-CT Code Diagnosis ICD10 Code Diagnosis Note [id number] [facility] Internal Med [address] [facility] [place] [address] 10/16/2020 00:00:00 10/17/2020 14:55:56 [id number] [facility] Internal Med [facility] [address] [address] 12/06/2020 00:00:00 12/06/2020 12:02:49 [id number] [facility] Podiatry [place] [address] [place] [address] 01/14/2021 00:00:00 01/15/2021 06:25:02 [id number] [facility] Internal Med [facility] [address] [place] [address] [address] [address] 02/21/2021 00:00:00 02/21/2021 18:00:52 [id number] [facility] Internal Med [facility] [address] [address] 04/16/2021 00:00:00 04/17/2021 10:31:35 [id number] [facility] Internal Med [facility] [address] [place], [place] [address]e., [address] [address] 04/30/2021 00:00:00 04/30/2021 15:04:53 [id number] [facility] Internal Med [facility] [address] [facility] [address] 2021 00:00:00 2021 13:00:56 [id number] [facility] Internal Med [place] [address] [facility] [place] [address] 09/23/2021 00:00:00 09/23/2021 11:50:22 [id number] [facility] Ortho [place] [address] [place] [address] 01/22/2022 00:00:00 01/22/2022 17:23:47 [id number] [facility] Internal Med [facility] [address] [address] 03/06/2022 00:00:00 03/06/2022 14:50:14 [id number] [facility] Internal Med [address] [place] [address], [address] [place] [address] 05/02/2022 00:00:00 05/02/2022 16:50:43 [id number] S_[facility]G [address] [address] 06/05/2022 00:00:00 06/05/2022 11:25:15 [id number] S_GMG [address] [address] 07/10/2022 00:00:00 07/17/2022 09:12:11 [id number] S_[facility]G [address] [address] 07/10/2022 00:00:00 07/10/2022 13:20:48 [id number] Alejandro Herring MD S_[address] [address] 07/31/2022 08:57:31 07/31/2022 09:16:25 Urinary incontinence [id number] R32 Patient doing wellfollow up in 4 weeks for pelvic [id number] Alejandro Herring MD [facility]_[address] [address] 08/28/2022 09:03:36 08/28/2022 09:31:15 Female stress incontinence 61695160 N39.3 Doing wellresume activities follow up in 6 momay [facility] med[facility] [id number] Abraham santana MD S_[facility] Internal Med [facility] [address] [place] [address], [address] [address] 09/09/2022 08:57:14 09/09/2022 09:23:37 Screening - NAD [id number] Z13.9 C-scope: C-scope: Dr Nabil fontaine in 10 years PAP: Seen by Adriana Chandler TONG SETTER 02/15/19, 05/02/2022 Mammogram: 02/21/19: Neg,Mammog efrem: 03/13/2020 : NegMammogr am: 03/14/2021 : NegMammogr am: 04/29/2022 : Neg DEXA: 02/21/19: NegDEXA: 06/25/2021 : Neg UTD on yearly flu shot 04/16/2021 Get TdapGet shingle vaccineGet PCV #13, and #23, does not want today 04/16/2021 UTD on COVID 19 vaccine RTC in 6 months as per her wishesGet Chance if worseShe did verbalize her understand ing of the above Anxiety 33103465 F41.9 None today, feels that this occurs d/t her having to wear a mask d/t COVID, not suicidal or homicidalD eclines any referrals or medication s Hyperlipidemia 47667012 E78.5 Does not want any meds, understand s the risks for CVS and 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 AND 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 HELPER symptomsMo re diet and exercise Repeat the labs Chronic ki dney disease 852658496 N18.[address] Patterson/alaina US kidney 03/08/2021 Type 2 nancy betes mellitus without complication 786016348 E11.9 Declines any medsGet Pop Whitaker 02/03/2020 , 02/26/2021 Dr Villatoro 01/14/2021 Hypoproteinemia 3199110 E88.09 Get a referral to Dr León again at this time, did see him in the pastShe is agreeable to do so, referral provided last OV also Dr León 12/30/2021 Hypothyroidism 91504943 E03.9 US 03/13/2020 : Chronic thyroiditi sOn levothyrox ine 75mcgs daily Does well Obesity 345267689 E66.9 Diet and exercise Gastroesop hageal reflux disease without esophagitis 161208789 K21.9 On pantaprozo leAdvised to take as neededDoes well on this Erythrocytosis 277666053 D75.1 CBC 09/04/2022 : WNL Pain of left wrist 70237 83423 08404 M25.532 S/p fracture, s/p trip and fallDr Figueroa 01/22/[address] incontinence 98146146 N39.3 Dr Herring 07/10/2022 , seen for retention of urine, next OV 02/26/2023 [id number] Abraham santana MD [facility] Internal Med [facility] [address] [facility], [place] [address] 01/06/2023 09:30:22 01/06/2023 10:27:15 Screening - NAD [id number] Z13.9 C-scope: C-scope: Dr Nabil fontaine in 10 years PAP: Seen by Adriana Chandler TONG SETTER 02/15/19, 05/02/2022 Mammogram: 02/21/19: Neg,Mammog efrem: 03/13/2020 : NegMammogr am: 03/14/2021 : NegMammogr am: 04/29/2022 : Neg DEXA: 02/21/19: NegDEXA: 06/25/2021 : Neg UTD on yearly flu shot 04/16/2021 Get TdapGet shingle vaccineGet PCV #13, and #23, does not want today 04/16/2021 UTD on COVID 19 vaccine RTC in 6 months as per her wishesGet Chance if worseShe did verbalize her understand ing of the above Anxiety 07669737 F41.9 None today, feels that this occurs d/t her having to wear a mask d/t COVID, not suicidal or homicidal Declines any referrals or medication s Hyperlipidemia 05197649 E78.5 Agreeable to start on a statin, will start on crestor 20mg daily 01/06/2023 More diet and exercise Repeat the labs Chronic ki dney disease 474871503 N18.[address] Patterson/p US kidney 03/08/2021 Type 2 nancy betes mellitus without complication 076325467 E11.9 Declines any medsGet Pop Whitaker 02/03/2020 , 02/26/2021 Dr Villatoro 01/14/2021 Hypoproteinemia 3873613 E88.09 Get a referral to Dr León again at this time, did see him in the pastShe is agreeable to do so, referral provided last OV also Dr León 12/30/2021 Hypothyroidism 60087728 E03.9 US 03/13/2020 : Chronic thyroiditi sOn levothyrox ine 75mcgs daily Does well Obesity 756461912 E66.9 Diet and exercise Gastroesop hageal reflux disease without esophagitis 064405307 K21.9 On pantaprozo leAdvised to take as neededDoes well on this Erythrocytosis 656910383 D75.1 CBC 09/04/2022 : WNL Refer to Dr León Pain of left wrist 22717 68394 70069 M25.532 S/p fracture, s/p trip and fallDr Figueroa 01/22/2022 Female str ess incontinence 07785349 N39.3 Dr Herring 07/10/2022 , seen for retention of urine, next OV 02/26/2023 Screening mammography 24 291981 Z12.31 Bilateral hearing loss 16023221 H91.93 Has noted some hearing loss, would like an audiologis t referral [id number] Giovanni Jin MD [facility] [place] [address] [place] [address] 01/08/2023 09:13:55 01/08/2023 10:19:01 Pain of left hand 3852863755 63725 M79.135 [id number] Mateo Hector DPM S_[facility] Podiatry [place] [address] [facility], [address] [place] [address] 03/24/2023 13:49:43 03/24/2023 16:21:18 Impaired glucose tolerance 4840353 R73.03 Patient educated on neuropathy , diabetes, diabetic diet, and daily foot exams. Patient is to check feet daily for new wounds, blisters, redness to prevent infection and ulceration s to the feet. Patient will return to clinic in 3 months for diabetic foot workup. 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 continue custom orthotics and supportive shoe gearmonito r feet daily for wounds infection if present seek medical attention immediatel y Hammer toe 782922525 M20 .40 2 through 5 bilateralA s above [id number] Abraham santana MD [facility] Internal Med [address] [place] [address] 04/09/2023 09:04:33 04/09/2023 09:53:37 Screening - NAD [id number] Z13.9 C-scope: C-scope: Dr Ferrer next in 10 years PAP: Seen by Adriana Chandler TONG SETTER 02/15/19, 05/02/2022 Mammogram: 02/21/19: Neg,Mammog efrem: 03/13/2020 : NegMammogr am: 03/14/2021 : NegMammogr am: 04/29/2022 : Neg DEXA: 02/21/19: NegDEXA: 06/25/2021 : Neg UTD on yearly flu shot 04/16/2021 Get TdapGet shingle vaccineGet PCV #13, and #23, does not want today 04/16/2021 UTD on COVID 19 vaccineCan do RSV vaccine RTC in 6 months as per her wishesGet Chance if worseShe did verbalize her understand ing of the above Anxiety 72049190 F41.9 None today, feels that this occurs d/t her having to wear a mask d/t COVID, not suicidal or homicidal Declines any referrals or medication s Hyperlipidemia 39569364 E78.5 On crestor 20mg daily since 01/06/2023 More diet and exercise Repeat the labs Chronic ki dney disease 139479074 N18.[address] Patterson/p US kidney 03/08/2021 Does not want to see the nephrologi st Type 2 nancy betes mellitus without complication 578817606 E11.9 Declines any medsGet A1CJamarcus Whitaker 02/03/2020 , 02/26/2021 Dr Villatoro 01/14/2021 Hypoproteinemia 6945222 E88.09 Get a referral to Dr León again at this time, did see him in the pastShe is agreeable to do so, referral provided last OV also Dr León 12/30/2021 Is to see him again, will discuss this with him, today did discuss with him 04/09/2023 Hypothyroidism 58082562 E03.9 US 03/13/2020 : Chronic thyroiditi sOn levothyrox ine 75mcgs daily Does well Obesity 758556236 E66.9 Diet and exercise Gastroesop hageal reflux disease without esophagitis 572914573 K21.9 On pantaprozo leAdvised to take as neededDoes well on this Erythrocytosis 094048268 D75.1 CBC 09/04/2022 : WNL Refer to Dr León Pain of left wrist 72134 41663 97964 M25.532 S/p fracture, s/p trip and fallDr Figueroa 01/22/[address]22 Female str ess incontinence 67627414 N39.3 Dr Herring 07/10/2022 , seen for retention of urine, next OV 02/26/2023 Screening mammography 24 739659 Z12.31 Bilateral hearing loss 02924605 H91.93 Has noted some hearing loss, would like an audiologis t referral Administra tion of influenza vaccine [id number] Z23 [id number] Rama Brambila APRN [facility] Internal Med [facility] [address] [address] 07/21/2023 09:45:48 07/21/2023 10:17:07 Anxiety 63636680 F41.9 None today, feels that this occurs d/t her having to wear a mask d/t COVID, not suicidal or homicidal Declines any referrals or medication s Hyperlipidemia 48646520 E78.5 On crestor 20mg daily since 01/06/2023 More diet and exercise Repeat the labs Chronic ki dney disease 970111957 N18.[address] Patterson/alaina kidney 03/08/2021 Does not want to see the nephrologi st Type 2 nancy betes mellitus without complication 042728984 E11.9 Declines any medsGet Pop Whitaker 02/03/2020 , 02/26/2021 Dr Villatoro 01/14/[address] León 12/30/2021 Is to see him again, will discuss this with him, today did discuss with him 04/09/2023 Hypothyroidism 20005173 E03.9 US 03/13/2020 : Chronic thyroiditi sOn levothyrox ine 75mcgs daily Does well Obesity 384000493 E66.9 Diet and exercise Gastroesop hageal reflux disease without esophagitis 610638559 K21.9 On pantaprozo leAdvised to take as neededDoes well on this Erythrocytosis 425873814 D75.1 CBC 09/04/2022 : WNL Refer to Dr León Pain of left wrist 45817 69578 90393 M25.532 S/p fracture, s/p trip and fallDr Figueroa 01/22/2022 Female str ess incontinence 13151897 N39.3 Dr Herring 07/10/2022 , seen for retention of urine, next OV 02/26/2023 Screening mammography 24 274382 Z12.31 Bilateral hearing loss 33998916 H91.93 Has noted some hearing loss, would like an audiologis t referral Administra tion of influenza vaccine 72930799 Z23 [id number] Abraham santana MD [facility] Internal Med [facility] [address] [facility], [facility] [address] [place] [address] 11/12/2023 09:34:29 11/12/2023 10:36:40 Screening - NAD 536685734 Z13.9 C-scope: C-scope: Dr Ferrer next in 10 years PAP: Seen by Adriana Chandler TONG SETTER 02/15/19, 05/02/2022 Mammogram: 02/21/19: Neg,Mammog efrem: 03/13/2020 : NegMammogr am: 03/14/2021 : NegMammogr am: 04/29/2022 : Neg DEXA: 02/21/19: NegDEXA: 06/25/2021 : Neg UTD on yearly flu shot 04/16/2021 Get TdapGet shingle vaccineGet PCV #13, and #23, does not want today 04/16/2021 UTD on COVID 19 vaccineCan do RSV vaccine RTC in 6 months as per her wishesGet Chance if worseShe did verbalize her understand ing of the above Anxiety 45294688 F41.9 None today, feels that this occurs d/t her having to wear a mask d/t COVID, not suicidal or homicidal Declines any referrals or medication s Hyperlipidemia 54907130 E78.5 On crestor 10mg dailyMore diet and exercise Repeat the labs Chronic ki dney disease 979151726 N18.[address] Patterson/alaina US kidney 03/08/2021 Does not want to see the nephrologi st Type 2 nancy betes mellitus without complication 762459321 E11.9 Declines any medsGet Pop Whitaker 02/03/2020 , 02/26/2021 Dr Villatoro 01/14/2021 Hypoproteinemia 4657663 E88.09 Get a referral to Dr León again at this time, did see him in the pastShe is agreeable to do so, referral provided last OV also Dr León 12/30/2021 Is to see him again, will discuss this with him, today did discuss with him 04/09/2023 Hypothyroidism 80065293 E03.9 03/13/2020 : Chronic thyroiditi sOn levothyrox ine 75mcgs daily Does well Obesity 929970344 E66.9 Diet and exercise Gastroesop hageal reflux disease without esophagitis 264696769 K21.9 On pantaprozo leAdvised to take as neededDoes well on this Erythrocytosis 141686002 D75.1 CBC 09/04/2022 : WNLCBC 11/06/2023 : WNL Pain of left wrist 86858 06726 04315 M25.532 S/p fracture, s/p trip and fallDr Figueroa 01/22/2022 Female str ess incontinence 43074812 N39.3 Dr Herring 07/10/2022 , seen for retention of urine, next OV 02/26/2023 Screening mammography 24 276807 Z12.31 Adult heal th examination 262450402 Z00.00 Screening for disorder 279900633 Z13.9 Screening for osteoporosis 317450242 Z13.820 Screening for cardiovascular system disease 653123562 Z13.6 States 11/12/2023 that her brother did have a bicuspid AV and AAA repaired, she denies any complaints herself, wants to get referred to cardiology , referred to Dr Burden [facility] Administra tion of pneumococcal vaccine 88839909 Z23 [id number] Bri Scruggs [facility] [place] [address] , [address] [place] [address] 01/08/2024 14:10:03 02/15/2024 16:23:40 Hyperlipidemia 91202024 E78.5 Hypothyroidism 14943731 E03.9 Anxiety 64008301 F41.9 [id number] Mateo Hector DPM [facility] Podiatry [place] [address] [facility], [address] [place] [address] 04/18/2024 16:01:29 05/20/2024 13:14:37 Diabetes mellitus 85328383 E11.9 continue diabetic control per PCP recommenda tionCheck feet daily for wounds infectionR ecommend supportive shoe gear and insolesFol low-up in 2-3 months Hammer toe 492161137 M20 .40 2 through 5 bilateralc ontinue conservati ve therapymon itor for woundsreco mmend wide extend toe box shoe gear [id number] Abraham santana MD [facility] Internal Med [place] [address] [facility] [address] [place] [address] 05/12/2024 09:29:52 05/12/2024 10:39:55 Screening - NAD 468815691 Z13.9 C-scope: C-scope: Dr Ferrer next in 10 years PAP: Seen by Adriana Chandler TONG SETTER 02/15/19, 05/02/2022 Mammogram: 02/21/19: Neg,Mammog efrem: 03/13/2020 : NegMammogr am: 03/14/2021 : NegMammogr am: 04/29/2022 : NegMammogr am: 05/09/2024 : Neg DEXA: 02/21/19: NegDEXA: 06/25/2021 : NegDEXA: 05/09/2024 : Neg UTD on yearly flu shot 04/16/2021 Get TdapGet shingle vaccineGet PCV #13, and #23, does not want today 04/16/2021 UTD on COVID 19 vaccineCan do RSV vaccine RTC in 6 months as per her wishesGet Chance if worseShe did verbalize her understand ing of the above Anxiety 86860963 F41.9 None today, feels that this occurs d/t her having to wear a mask d/t COVID, not suicidal or homicidal Declines any referrals or medication s Hyperlipidemia 12845226 E78.5 On crestor 10mg dailyMore diet and exercise Repeat the labs Chronic ki dney disease 541477229 N18.[address] Yesenia/p US kidney 03/08/2021 Does not want to see the nephrologi st Type 2 nancy betes mellitus without complication 598341655 E11.9 Declines any medsGet Pop Whitaker 02/03/2020 , 02/26/2021 Dr Villatoro 01/14/[address] León in the past Hypothyroidism 54707288 E03.9 US 03/13/2020 : Chronic thyroiditi sOn levothyrox ine 75mcgs daily Does well Obesity 460809017 E66.9 Diet and exercise Gastroesop hageal reflux disease without esophagitis 740909165 K21.9 On pantaprozo leAdvised to take as neededDoes well on this Erythrocytosis 471470536 D75.1 CBC 09/04/2022 : WNLCBC 11/06/2023 : WNL Pain of left wrist 38185 97058 53207 M25.532 S/p fracture, s/p trip and fallDr Figueroa 01/22/2022 Female str ess incontinence 62899364 N39.3 Dr Herring 07/10/2022 , seen for retention of urine, next OV 02/26/2023 Screening for cardiovascular system disease 503797189 Z13.6 States 11/12/2023 that her brother did have a bicuspid AV and AAA repaired, she denies any complaints herself, wants to get referred to cardiology , referred to Dr Burden [facility] OV 05/12/[address] [facility] [address] Burden 12/24/2023 ECHO 12/25/2023 UA AAA 01/19/2024 Pain of right wrist 3169 137787 19823 M25.531 Administra tion of influenza vaccine 76082680 Z23 Gynecologi c examination 85164123 Z01.117 [id number] Mateo Hector DPM [facility] Podiatry [place] [address] 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 continue custom orthotics and supportive shoe gearmonito r feet daily for wounds infection if present seek medical attention immediatel y Diabetes mellitus 096170 09 E11.9 continue diabetic control per PCP recommenda tionCheck feet daily for wounds infectionR ecommend supportive shoe gear and insolesFol low-up in 2-3 months Hammer toe 490474493 M20 .40 2 through 5 bilateralc ontinue conservati ve therapymon itor for woundsreco mmend wide extend toe box shoe gear [id number] Eliseo Gutierrez MD [facility] Ortho [place] [address] [place] [address] 06/27/2024 09:12:24 06/27/2024 09:53:45 Pain of right wrist 4316264557 33286 M25.531 Goals Section Goal Description Progress Status Start Date LastModified by Organization Details LastModified Time Adequate Sleep Achieves adequate, well-rested sleep with minimal disruption None active 2023 Navya Winston CCM Information not available 01/08/2024 18:20:02 Exercise Regularly Follows a regular exercise regimen or instructed exercise plan as per care team recommendation( s) None active 2023 Navya Winston CCM Information not available 01/08/2024 18:20:02 Stress Managemen t Reports effective management of stress None active 2023 Navya Winston CCM Information not available 01/08/2024 18:20:02 Quality of Life Reports satisfaction with quality of life None active 2023 Navya Winston CCM Information not available 01/08/2024 18:20:02 Recreatio nal Activitie s Participates in recreational activities None active 2023 Navya Winston CCM Information not available 01/08/2024 18:20:02 Activitie s of Daily Living Performs activities of daily living independently or with minimal assistance None active 2023 Navya Winston CCM Information not available 01/08/2024 18:20:03 Follow-up Appointme nt(s) Attends referral and/or follow-up appointment(s) as per care team recommendation( s) None active 2023 Navya Winston CCM Information not available 01/08/2024 18:20:03 Medicatio n Regimen Follows medication regimen as per care team recommendation( s) None active 2023 Navya Winston CCM Information not available 01/08/2024 18:20:03 Food Security Reports ability to access and obtain foods to meet nutritional needs None active 2023 Navya Winston CCM Information not available 01/08/2024 18:20:03 Adequate Housing Condition s Maintains adequate housing with satisfactory living conditions None active 2023 Navya Winston CCM Information not available 01/08/2024 18:20:03 Family and Social Support Reports family and/or social support needs are met None active 2023 Navya Winston CCM Information not available 01/08/2024 18:20:03 Knowledge of Disease or Condition Demonstrates understanding of disease(s) or condition(s) None active 2023 Navya Winston CCM Information not available 01/08/2024 18:20:03 Financial Stability Reports financial status and/or income meets needs None active 2023 Navya Winston CCM Information not available 01/08/2024 18:20:03 Diet Adherence Follows prescribed or recommended diet None active 2023 Navya Winston CCM Information not available 01/08/2024 18:20:03 Lipid Levels Maintains normal lipid levels as defined by care team None active 2023 Navya Winston CCM Information not available 01/08/2024 18:20:04 Symptom Managemen t Demonstrates ability to manage and/or control symptoms None active 2023 Navya Winston CCM Information not available 01/08/2024 18:20:04 Reliable Transport ation Reports having access to reliable transportation None active 2023 Navya Winston CCM Information not available 01/08/2024 18:20:04 Effective Coping Manages life events with effective coping methods None active 2023 Navya Winston CCM Information not available 01/08/2024 18:20:04 Lab Testing Completes lab testing as per care team recommendation( s) None active 2023 Navya Winston CCM Information not available 01/08/2024 18:20:04 Health Concerns Section Related Observation LastModified by Organization Detai ls LastModified Time None Recorded Concern Status LastModified by Organization Details LastModified Time Anxiety Active Navya Winston CCM Not Available 01/07 18:18:28 Hyperlipidemia Active Navya Winston CCM Not Available 0 01/08/2024 18:18:56 Disorder of thyroid gland Active Navya Winston CCM Not Available 01/08/2024 18:1 8:39 Advance Directives Directive N: Payers Encounter Date Sequence Insurance Name Policy Number Policy Manzanares Covered Member ID Manzanares Member ID Guarantor Name 01/08/2024 1 [place] Conchita A Gehling [id number] Conchita A Gehling 01/08/2024 1 [employer] (MEDICARE SUPPLEMENT) Conchita Gehling [id number] Conchita A Gehling 04/18/2024 1 [place] Conchita A Gehling [id number] Conchita A Gehling 04/18/2024 1 [employer] (MEDICARE SUPPLEMENT) Conchita Gehling [id number] Conchita A Gehling 05/12/2024 1 [place] Conchita A Gehling [id number] Conchita A Gehling 05/12/2024 1 [employer] (MEDICARE SUPPLEMENT) Conchita Gehling [id number] Conchita A Gehling 06/21/2024 1 [facility] (MEDICARE REPLACEMENT/A DVANTAGE - HMO) [id number] Conchita A Gehling [id number] Conchita A Gehling 06/27/2024 1 [facility] (MEDICARE REPLACEMENT/A DVANTAGE - HMO) [id number] Conchita A Gehling [id number] Conchita A Gehling Notes Date Note Type Note Provider Name and Address Organization Details Recorded Time 04/18/2024 text/html . Patient is a 73-year-old female who is diabetic she returns for diabetic foot care overall she is doing well she has pes cavus foot deformity with bilateral hammertoe she denies any open wounds. Patient does wear orthotics secondary to the pes cavus foot deformity she denies any surgery for her feet. Patient denies any wounds or infection. Patient states that she is retired but she returned to work once out of the week. Patient denies any other complaints. Mateo Hector DPM [address] [place] [address] [address], [place], [address], [facility] 05/05/2024 10:21:01 05/12/2024 text/html OV 10/28/18:Past PCP: Dr Johnson, last apt was in 12/10Past Hx:HypothyroidismEx-sm okerPlantar faciitisReviewed social family and surgical historyNo recent labsDoing Kain is to see Dr Jin who is to do her R TKR and she has also seen Dr Villatoro for her feetOV 11/23/18:Here for her presurgery evalIs to get R TKR next week by Dr Agarwalid do the pre-op labs, has to do the rest of the labs and f/u as scheduledShe is doing very well and is very eager to get the surgery doneOV 02/01/19:Here for her routine aptShe is doing well, s/p TKRShe did do the labs, is now going to get the c-scope, mammogram, PAP and DEXA done, she has the orders from her last OVsStill has mild knee pain that is well controlled with naprosyn very occasionallyOV 06/02/2019:Here for her routine aptShe is feeling well, just has some fatigueShe did do the labs and is here to review theseOV 12/13/2019:Here for her routine aptShe feels Kain did do the labs OV 04/17/2020:Here for her routine aptShe feels Kain did do the labsStill does not want any meds for DM OV 10/16/2020:Here for her routine aptShe is doing wellSsteven did do the labsOV 12/06/2020:Here for her post hosp aptAdmitted and d/c for diverticulitis, is doing much better, no fevers or chills, no N/V or diarrhea, normal appetite and she is now on a regular dietOV 02/21/2021:ACV:Here with c/o L sided chest rash that is itchy and painfulStarted about a month ago, and these healed up, but now has 3 'bumps' in the mid chest area slightly to the leftAlso some stinging sensation, these have been there for about 2 weeksNo fevers or chillsNo other rashesNo joint aches or pains OV 04/16/2021:Here for her routine aptShe is doing Kain did do her labs and mammogramHere for her MWVOV 2021:Here for her routine aptShe is doing wellShe did do the labs on 2OV 09/23/2021:ACV:Knot on the L lower leg, occurred about a month ago, when her dog got startled by another dog and the leash hit her legNo pain, did have some bruising by the ankle but now much betterMild soft swelling is notedAlso c/o some anxiety, from wearing her mask for COVID, not suicidal or homicidal OV 03/06/2022:Here for her f/u apt, she feels well today, she did the labs on 03/03/2022 OV 09/09/2022:Here for her f/u apt, she is doing well OV 01/06/2023: Here for her f/u apt, she is doing well, would like to get on a statin now, also would like to get a referral to audiology OV 04/09/2023: Here for her f/u apt, feels well, she did do the labs on 03/20/2023 OV 11/12/2023: Here for her routine apt, she is doing well today, he did do the labs on 11/06/2023 OV 05/12/2024: Here for her f/u apt, she feels very well, she did do the labs on 04/18/2024 Abraham Jones MD [address], [address], [place], [address], [facility] 05/13/2024 21:59:53 06/21/2024 text/html . 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 Patient understands her options she denies wanting any surgery. Patient currently has custom functional orthotics due to her current condition I believe the accommodative orthotics will help her more and will help to prevent wounds to her feet. Mateo Hector DPM [address], [address], [place], [address], [facility] 06/21/2024 15:54:31 OBGyn Episode No OBEpisode recorded.
--- OUTSIDE RECORDS SUMMARY | 2024-07-07 12:56 | XMS_ITS | Clinical Summary ---
Author Organization [facility] Address [address] [place] [address] Phone Care Team Providers Care Direct Marketing Intern Name Role Phone Abraham Jones MD Primary Care Provider Allergies No known active allergies Medications levothyroxine (SYNTHROID) 75 MCG Tablet levothyroxine 75 mcg tablet Active Naproxen Sodium (ALEVE PO) Take by mouth 2 times daily. Active Cholecalcifero l (VITAMIN D-3 PO) Take by mouth daily. 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 Immunizations Immunization Administration Dates Next Due Influenza, High-dose, Quadrivalent 04/16/2021 Influenza, high-dose, trivalent, PF 04/17/2020,0 06/02/2019 Family History Medical History Relation Name Comments Stroke Father Stroke Mother Relation Name Status Comments Father Mother Social History Tobacco Use Types Packs/Day Years Used Date Smoking Tobacco: Former Smokeless Tobacco: Never Alcohol Use Standard Drinks/Week Comments Yes 0 (1 standard drink = 0.6 oz pur e alcohol) occasionally Comments Unknown Sex and Gender Information Value Date Recorded Sex Assigned at Not on file Legal Sex Female 9:09 PM CDT Gender Identity Not on file Sexual Orientation Not on file Last Filed Vital Signs Vital Sign Reading Time Taken Comments Blood Pressure 122/72 07/05/2020 1:55 PM [employer] [facility] Pulse 86 07/05/2020 1:55 PM [employer] [facility] Temperature 37.3 C (99.2 F) 07/05/2020 1:55 PM [employer] [facility] Respiratory Rate 18 07/05/2020 1:55 PM [employer] [facility] Oxygen Saturation 96% 07/05/2020 1:55 PM [employer] [facility] Inhaled Oxygen Concentration - - Weight 84.4 kg (186 lb) 07/05/2020 1:55 PM [employer] [facility] Height 162.6 cm (5' 4 ) 07/05/2020 1:55 PM [employer] [facility] Body Mass Index 31.93 07/05/2020 1:55 PM [employer] [facility] Plan of Treatment Health Maintenance Due Date Last Done Comments DEXA Bone Density 1950 Hepatitis C Virus (HCV) Screening 1950 TdaP Immunization 1950 Colonoscopy 09/02/1996 Colorectal Cancer Screening 09/02/1996 Cologuard 09/02/2001 Immunochemical Fecal Occult Blood 09/02/2001 Mammogram 09/02/2001 Pneumococcal Immunization (50+ years) (1 of 1 - PCV) 09/02/2001 Zoster Immunization (1 of 2) 09/02/2001 Influenza Immunization (#1) 01/24/202403/26, 04/17/2020, 06/02/2019 SARS-COV-2 Immunization ( season) 2024 03/06/2022, 11/19/2021, 03/21/2021, Additional history exists Respiratory Syncytial Virus (RSV) Immunization (Adult) (1 - 1-dose 75+ series) 09/02/2026 Hepatitis B Immunization Aged Out No longer eligible based on patient's age to complete this topic Meningococcal Immunization (ACWY) Aged Out No longer eligible based on patient's age to complete this topic Rotavirus Immunization Aged Out No lo nger eligible based on patient's age to complete this topic Insurance MEDICARE [facility] Care Teams Direct Marketing Intern Relationship Specialty Start Date End Date Abraham Jones MD [address] [place] [address] [place] [address] [place] [address] PCP - General Internal Medicine 06/07/20
--- OUTSIDE RECORDS SUMMARY | 2024-07-07 12:56 | XMS_ITS | Clinical Summary ---
Author Organization [facility] Mitra kimbrough [facility] Address [address] [place] [address] Care Team Providers Care Pricing Director Name Role Phone Abraham Jones MD Primary Care Provider Allergies Active Allergy Reactions Criticality Noted Date Comments Phenytoin Sodium Extended Rash High 07/28/2019 Medications levothyroxine 75 mcg tablet levothyroxine 75 mcg tablet Active fluticasone propionate (FLONASE) 50 mcg/spray [place], Suspension nasal inhaler fluticasone propionate 50 mcg/actuation nasal spray,suspension Active cyanocobalamin , vitamin B-12, 1,000 mcg Capsule Take 1,000 mcg by mouth daily. 1 Active ergocalciferol , vitamin D2, (VITAMIN D ORAL) Vitamin D OTC-1 tab po qd 0 Active naproxen sodium (ALEVE ORAL) Take by mouth 2 times daily. Active rosuvastatin (CRESTOR) 20 mg tablet Take 10 mg by mouth daily. 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 Encounters Date Type Department Care Team Description 06/21/2024 External Device Data [facility] ABSTRACTION Provider, Abstract 06/15/2024 External Device Data [facility] ABSTRACTION Provider, Abstract 06/15/2024 External Device Data [facility] ABSTRACTION Provider, Abstract from Last 3 Months Family History Medical History Relation Name Comments Stroke Father Stroke Mother Relation Name Status Comments Brother 1 Alive Brother 2 Alive Father Mother Social History Tobacco Use Types Packs/Day Years Used Date Smoking Tobacco: Former Cigarettes 0.5 5 0 07/27/2004 - 07/27/2009 Smokeless Tobacco: Never Tobacco Cessation:Counseling Given: Not Answered Alcohol Use Standard Drinks/Week Comments Yes 0 (1 standard drink = 0.6 oz pur e alcohol) Comments No Sex and Gender Information Value Date Recorded Sex Assigned at Not on file 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 Gender Identity Not on file Sexual Orientation Not on file Last Filed Vital Signs Vital Sign Reading Time Taken Comments Blood Pressure 119/75 01/08/2024 8:19 AM CDT Pulse 69 01/08/2024 8:19 AM CDT Temperature 36.5 C (97.7 F) 01/08/2024 8:19 AM CDT Respiratory Rate 15 01/08/2024 8:19 AM CDT Oxygen Saturation 96% 01/08/2024 8:19 AM CDT Inhaled Oxygen Concentration - - Weight 77.3 kg (170 lb 6.4 oz) 01/08/2024 8:19 A M CDT Height 162.6 cm (5' 4 ) 12/30/2021 10:03 AM CDT Body Mass Index 29.25 12/30/2021 10:03 AM CDT Plan of Treatment Upcoming Encounters Date Type Department Care Team (Late st Contact Info) Description 07/15/2024 8:30 AM STAMP PRESS OPERATOR Office Visit [facility] Oncology and Hematology [facility] [address] [facility] [address] [place] [address] Dane León MD [address] [place] [address] Health Maintenance Due Date Last Done Comments DIABETES ANNUAL FOOT EXAM 09/02/1969 DIABETES MICROALBUMIN ANNUAL SCREEN 09/02/1969 LDL CHOLESTEROL ANNUAL 09/02/1969 DTAP/TDAP/TD VACCINES (1 - Tdap) 09/02/1970 Traditional Medicare (ACO) A nnual Wellness Visit 09/02/1970 BREAST CANCER SCREENING 1991 FIT-DNA Q 3 years 09/02/1996 FIT/FOBT Q 1 year 09/02/1996 Flex Sig/CT Colonography Q 5 years 09/02/1996 RSV VACCINE (60+ or ) (1 - Risk 60-74 years 1-dose series) 2011 DIABETES ANNUAL RETINAL EXAM 02/26/2022 02/26/2021, 02/03/2020 DIABETES HBA1C Q 6 MONTHS 09/19/20232022, 01/01/2023, 09/04/2022, Additional history exists INFLUENZA VACCINE (#1) 2023 , 03/06/2022, 04/16/2021, Additional history exists COVID-19 Vaccine (2023-2 5 season) 2024 03/16/2023, 03/06/2022, 02/18/2022, Additional history exists COLORECTAL SCREENING 04/26/2029 04/26/2019, 04/26/2019, 04/25/2019 Colorectal Cancer Screening 04/26/2029 OSTEOPOROSIS SCREENING Completed 06/25/2021, 2018 ZOSTER VACCINE Completed 03/16/2023, 02/23, 01/12/2023 PNEUMOCOCCAL VACCINE 65+ YEARS Completed 11/12/2023 Insurance MEDICARE PART A AND B [facility] Care Teams Pricing Director Relationship Specialty Start Date End Date Abraham Jones MD PCP - General Internal Medicine 06/02/19
[2024-07-07 13:31] LABS: Basophils Absolute Auto 0.1 K/mm3 (0.0-0.1); Basophils Percent Auto 0.9 % (0.2-1.2); Eosinophils Absolute Auto 0.1 K/mm3 (0-0.3); Eosinophils Percent Auto 2.1 % (0-4.4); Hemoglobin 15.2 g/dL (12.0-15.0); Immature Granulocyte Absolute 0.01 K/mm3 (0.00-0.031); Immature Granulocyte Percent A 0.2 % (0-0.5); Lymphocytes Absolute Auto 2.15 K/mm3 (0.9-3.2); Lymphocytes Percent Auto 36.8 % (18.3-44.2); Mean Corpuscular HGB Conc 34.5 g/dl (32-36); Mean Corpuscular Hemoglobin 31.1 pg (26-34); Mean Platelet Volume 9.9 fl (7.4-10.4); Monocytes Absolute Auto 0.4 K/mm3 (0.1-0.6); Monocytes Percent Auto 6.5 % (2.6-8.5); Neutrophils Absolute Auto 3.1 K/mm3 (1.3-6.7); Neutrophils Percent Auto 53.5 % (45.5-73.1); Platelet Count Result 261 k/mm3 (150-375); Red Blood Count 4.89 M/mm3 (4.2-5.4); Red Cell Distribution Width 12.5 % (11.5-14.5); White Blood Count 5.8 K/mm3 (4.5-10.0)
[2024-07-07 13:44] LABS: Alanine Aminotransferase 25 U/L (6-35); Albumin Level 4.5 g/dL (3.5-5.1); Alkaline Phosphatase 85 U/L (38-126); Anion Gap 11 mmol/L (4-12); Aspartate Amino Transferase 24 U/L (14-36); Bilirubin,Total 0.5 mg/dL (0.2-1.3); Blood Urea Nitrogen 24 mg/dL (7-17); Calcium 9.3 mg/dL (8.4-10.2); Carbon Dioxide 24 mmol/L (22-30); Chloride 107 mmol/L (98-107); Estimated Glomerular Filt Rate > 60; Glucose 93 mg/dL (65-110); Potassium 3.6 mmol/L (3.4-5.0); Sodium 142 mmol/L (137-145)
[2024-07-07 13:51] LABS: Immunoglobulin A 65 mg/dL (70-400); Immunoglobulin G 518 mg/dL (700-1600); Immunoglobulin M 51 mg/dL (40-230)
[2024-07-08 11:14] LABS: Protein, Total 6.3 g/dL (6.1-8.1)
[2024-07-08 21:13] LABS: Albumin 4.3 g/dL (3.8-4.8); Alpha 1 Globulin 0.3 g/dL (0.2-0.3); Alpha 2 Globulin 0.5 g/dL (0.5-0.9); Beta 1 Globulin 0.4 g/dL (0.4-0.6); Gamma Globulin 0.5 g/dL (0.8-1.7)
[2024-07-11 15:03] LABS: Kappa\\Lambda Light Chains 1.62 (0.26-1.65); Lambda Light Chain 7.6 mg/L (5.7-26.3)
== END 2024-07-07 12:49 | disposition home or self-care (01) ==
LOC: ANHLAB 12:52
PROVIDERS: PCP Internal Medicine; Visit Provider Internal Medicine Hematology & Oncology
DX: D80.9 Immunodeficiency with predominantly antibody defects, unspecified (principal)
CPT/HCPCS: 36415; 80053; 82784; 83883; 84155; 84165; 85025

== ENCOUNTER 2024-09-20 08:02 | Outpatient (CLI) | payer MEDICARE, SELFPAY ==
--- OUTSIDE RECORDS SUMMARY | 2024-09-20 08:09 | XMS_ITS | Data Portability ---
[facility] Organization [facility] Address [address] [place] [address] Assessment No assessment recorded. Plan of Treatment Reminders Order Date Submit Date Provider Last Modified By Organization Details Last Modified Time Details Appointments None recorded. Lab BMP, serum or plasma 2017 018 [facility], [address] [place] [address], [address], [place], [address], 8 07:14:07 Referral novelty candy maker referral - Please call patient to schedule appt. Thank you 2018 019 [email or web address] Not available 9 12:19:03 novelty candy maker referral 2017 018 [email or web address] Not available 8 14:55:26 Procedures None recorded. Surgeries None recorded. Imaging XR, ankle + foot 2017 018 [facility] ([facility]), [address] [place], [address], 8 13:55:14 Medication Orders levothyrox ine 50 mcg tablet 2018 019 INTERFACE [facility], [address], [place], [address], 9 16:51:07 levothyrox ine 50 mcg tablet 2018 019 INTERFACE [facility], [address], [place], [address], 9 12:06:56 Patient TargetsNo targets recorded. Patient Instructions Encounter Date Encounter Id Patient Instructions Last Modified By Organization Details Last Modified Time 02/08/2018 [id number] plantar fasciitis: exercises Not available 02/08/2018 14:57:10 see podiatry for foot pain get XR done avoid nsaids start at home stretching get sleep study done emerald Not available 02/08/2018 15:48:29 04/13/2018 [id number] Patient had type d up a complaint [...] review [email or web address] Not available 04/13/2018 10:43:48 09/15/2018 [id number] - Always present to ER or Urgent [...] Not available 09/15/2018 17:25:51 Reason for Referral Room Cooler Installer Referral for Pain in right heel Referring Physician: Didier Crain, Family Medicine, Encounter Date: 02/08/2018 Room Cooler Installer Referral for Pain in right heel Please call patient to schedule appt. Thank you Referring Physician: Lourdes Sims, Family Medicine, Encounter Date: 09/15/2018 Results Created Date Observation Date Name Description Value Unit Range Abnormal Flag Note LastModifiedBy Organization Detail LastModifiedTime 02/05/20 18 02/05/2018 TSH + free T4, serum TSH 2.360 uIU/m L 0.450- 4.500 Not Available [facility] ([facility]) [address] [facility], [place], [address], 02/05/2018 06:19:44 02/05/20 18 02/05/2018 TSH + free T4, serum T4,free(dire ct) 1.27 NG/dL 0.82-1 .77 Not Available [facility] ([facility]) [address] [facility] [place], [address], 02/05/2018 06:19:44 02/05/20 18 02/04/2018 BMP, serum or plasm a glucose 107 mg/dL 65-99 above high normal Not Available [facility] ([facility]) [address] [facility] [place], [address], 02/05/2018 06:19:45 02/05/20 18 02/04/2018 BMP, serum or plasm a BUN 16 mg/dL 8-27 Not Available [facility] ([facility]) [address] [facility] [place], [address], 02/05/2018 06:19:45 02/05/20 18 02/04/2018 BMP, serum or plasm a creatinine 0.93 mg/dL 0.57-1 .00 Not Available [facility] ([facility]) [address] [facility] [place], [address], 02/05/2018 06:19:45 02/05/20 18 02/04/2018 BMP, serum or plasm a eGFR if nonafricn AM 64 mL/mi n/1.7 3 >59 Not Available [facility] ([facility]) [address] [facility] [place], [address], 02/05/2018 06:19:45 02/05/20 18 02/04/2018 BMP, serum or plasm a eGFR if africn AM 74 mL/mi n/1.7 3 >59 Not Available [facility] ([facility]) [address] [facility] [place], [address], 02/05/2018 06:19:45 02/05/20 18 02/04/2018 BMP, serum or plasm a BUN/creatini ne ratio 17 12-28 Not Available [facility] ([facility]) [address] [facility] [place], [address], 02/05/2018 06:19:45 02/05/202018 BMP, serum or plasm a sodium 143 mmol/ L 134-14 4 Not Available [facility] ([facility]) [address] [facility] [place], [address], 02/05/2018 06:19:45 02/05/20 18 02/04/2018 BMP, serum or plasm a potassium 4.7 mmol/ L 3.5-5. 2 Not Available [facility] ([facility]) [address] [facility] [place], [address], 02/05/2018 06:19:45 02/05/20 18 02/04/2018 BMP, serum or plasm a chloride 105 mmol/ L 96-106 Not Available [facility] ([facility]) [address] [facility] [place], [address], 02/05/2018 06:19:45 02/05/20 18 02/04/2018 BMP, serum or plasm a carbon dioxide, total 25 mmol/ L 20-29 Not Available [facility] ([facility]) [address] [facility] [place], [address], 02/05/2018 06:19:45 02/05/20 18 02/04/2018 BMP, serum or plasm a calcium 9.3 mg/dL 8.7-10 .3 Not Available [facility] ([facility]) [address] [facility] [place], [address], 02/05/2018 06:19:45 05/03/20 18 05/04/2018 BMP, serum or plasm a glucose 101 mg/dL 65-99 above high normal Not Available [facility] ([facility]) [address] [facility] [place], [address], 05/04/2018 07:14:07 05/03/20 18 05/04/2018 BMP, serum or plasm a BUN 19 mg/dL 8-27 Not Available [facility] ([facility]) [address] [facility] [place], [address], 05/04/2018 07:14:07 12/10/20 18 05/04/2018 BMP, serum or plasm a creatinine 0.84 mg/dL 0.57-1 .00 Not Available [facility] ([facility]) [address] [facility] [place], [address], 05/04/2018 07:14:07 05/03/20 18 05/04/2018 BMP, serum or plasm a eGFR if nonafricn AM 73 mL/mi n/1.7 3 >59 Not Available [facility] ([facility]) [address] [facility] [place], [address], 05/04/2018 07:14:07 05/03/20 18 05/04/2018 BMP, serum or plasm a eGFR if africn AM 84 mL/mi n/1.7 3 >59 Not Available [facility] ([facility]) [address] [facility] [place], [address], 05/04/2018 07:14:07 05/03/20 18 05/04/2018 BMP, serum or plasm a BUN/creatini ne ratio 23 12-28 Not Available [facility] ([facility]) [address] [facility] [place], [address], 05/04/2018 07:14:07 05/03/20 18 05/04/2018 BMP, serum or plasm a sodium 146 mmol/ L 134-14 4 above high normal Not Available [facility] ([facility]) [address] [facility] [place], [address], 05/04/2018 07:14:07 05/03/20 18 05/04/2018 BMP, serum or plasm a potassium 3.9 mmol/ L 3.5-5. 2 Not Available [facility] ([facility]) [address] [facility] [place], [address], 05/04/2018 07:14:07 05/03/20 18 05/04/2018 BMP, serum or plasm a chloride 105 mmol/ L 96-106 Not Available [facility] ([facility]) [address] [facility], [place], [address], 05/04/2018 07:14:07 05/03/20 18 05/04/2018 BMP, serum or plasm a carbon dioxide, total 23 mmol/ L Not Available [facility] ([facility]) [address] [facility], [place], [address], 05/04/2018 07:14:07 05/03/20 18 05/04/2018 BMP, serum or plasm a calcium 9.1 mg/dL 8.7-10 .3 Not Available [facility] ([facility]) [address] [facility], [place], [address], 05/04/2018 07:14:07 02/10/20 18 02/09/2018 XR, ankle + foot No observ ation record ed. [address] (Imaging) [address] [place], [address], 02/16/2018 13:02:50 02/10/20 18 02/09/2018 XR, ankle + foot No observ ation record ed. [address] ([facility]) [address] [place], [address], 02/10/2018 17:55:54 02/10/20 18 02/09/2018 XR, ankle + foot No observ ation record ed. [address] [place], [address], 02/16/2018 13:02:50 02/10/20 18 02/09/2018 XR, ankle + foot No observ ation record ed. [address] [place], [address], 02/15/2018 17:12:44 Result Notes None recorded. Problems Name Problem SNOMED Code Status Onset Date Resolution Date Notes Provider Name and Address Organization Details Recorded Time Dizziness 019493708 Active 2016 Barb Rene PA-C Attn: Accounting ,[address], [place], [address] , [place] - [facility] 7 10:32:39 Pain in right knee Active 2017 Barb Rene PA-C Attn: Accounting ,[address] [place], [address] , [place] [facility] 8 12:52:45 Body mass index 30+ - obesity 228109933 Active 2017 Barb Rene PA-C Attn: Accounting ,[address] [place], [address] , [place] [facility] 8 12:53:47 Serum creatinin e above reference range 362579836 Active 2017 Barb Rene PA-C Attn: Accounting ,[address] [place], [address] , [place] [facility] 8 16:23:25 Pain in right heel 70051653261 60858 Active 2017 Shana Collier MD Attn: Accounting ,[address] [place], [address] , [place] [facility] 8 15:54:53 Plantar fasciitis 186950143 Active 2017 Barb Rene PA-C Attn: Accounting ,[address] [place], [address] , [place] [facility] 8 10:42:58 Hypothyro idism 78888957 Active Victor M Sargent MD Attn: Accounting ,[address] [place], [address] , [place] [facility] 6 10:53:43 Anterior knee pain 279293996 Active Victor M Sargent MD Attn: Accounting ,[address] [place], [address] , [place] [facility] 5 17:20:56 Degenerat jean disorder of bone 003734162 Active Victor M Sargent MD Attn: Accounting ,[address] [place], [address] , [place] [facility] 6 10:53:43 Postopera tive hypothyro idism 99644779 Active Victor M Sargent MD Attn: Accounting ,[address], [place], [address] , [place] [facility] 5 15:42:49 Skin lesion 43924817 Active Victor M Sargent MD Attn: Accounting ,[address], [place], [address] , [place] [facility] 6 10:53:43 Screening for malignant neoplasm of breast Active 2016 Barb Rene PA-C Attn: Accounting ,[address], [place], [address] , [place] [facility] 7 11:27:01 Adult health examinati on Active 2016 Barb Rene PA-C Attn: Accounting ,[address], [place], [address] , [place] [facility] 7 11:32:03 Obesity 169272863 Completed 201609/29/2017 Barb Rene PA-C Attn: Accounting ,[address], [place], [address] , [place] [facility] 8 12:53:39 Blood glucose outside reference range 333411762 Active 2016 a1c: 6.0 on 017 Barb Rene PA-C Attn: Accounting ,[address], [place], [address] , [place] [facility] 7 10:34:34 Gynecolog ic examinati on Active 2016 Barb Rene PA-C Attn: Accounting ,[address], [place], [address] , [place] [facility] 7 11:28:34 Sinusitis 73122372 Active 2016 Barb Rene PA-C Attn: Accounting ,[address], [place], [address] , [facility] 7 10:39:36 Postmenop ausny state 85722547 Active 2016 Barb Rene PA-C Attn: Accounting ,[address], [place], [address] , [facility] 7 10:58:23 Fatigue 32461641 Active 2016 Barb Rene PA-C Attn: Accounting ,[address], [place], [address] , [facility] - [facility] 7 10:14:27 Overweigh t 904223522 Active 2016 Barb Rene PA-C Attn: Accounting ,[address], [place], [address] , [facility] 7 09:25:58 Problem Notes None recorded. Procedures Surgical History Date Name Laterality Status Provider Name and Address Organization Details Recorded Time 7 Knee Surgery completed Abby Davenport [place] - [facility] 7 11:03:51 5 Removal of thyroid completed Joslyn Hanks MA [place] - [facility] 07/09/2018 12:28:55 Imaging Results Imaging Date Name Status [facility] by [facility] Details LastModified Time 02/09/2018 XR, ankle + foot completed [address] (Imaging) [address] [place], [address], 02/16/2018 13:02:50 02/09/2018 XR, ankle + foot completed [email or web address] ([facility]) [address] [place], [address], 02/10/2018 17:55:54 02/09/2018 XR, ankle + foot completed [address] [place], [address], 02/16/2018 13:02:50 02/09/2018 XR, ankle + foot completed [address] [place], [address], 02/15/2018 17:12:44 Procedure Notes None recorded. Medical Equipment None Reported. Allergies Allergen ID Allergen Name Allergen Category Reaction Reaction Severity Criticality Documentation Date Start Date Code Code System Note Provider Name and Address Organization Details Recorded Time 07314 Dilantin medicatio n Not available Not available [...] propionate 50 mcg/actuati on nasal spray,suspe nsion [place] 1 spray every day by intranasa l [...] Updated DateTime 8 160.02 cm 29.7 kg/m2 61935.7 3 g 97 % 97 % 76 /min 98.8 [degF] 120 mm[Hg] 80 mm[Hg] Katie Plata MA [facility] 8 14:42:16 Date Recorded Body height Body mass index (BMI) Body weight Oxygen saturation Oxygen saturation in Arterial blood by Pulse oximetry Heart rate Body temperature Systolic blood pressure Diastolic blood pressure Provider Name and Address Organization Details Last Updated DateTime 8 160.02 cm 30.2 kg/m2 92664.8 9 g 93 % 93 % 65 /min 97.9 [degF] 110 mm[Hg] 74 mm[Hg] Apple Scruggs MA [facility] 8 09:51:20 Date Recorded Body height Body mass index (BMI) Body weight Oxygen saturation Oxygen saturation in Arterial blood by Pulse oximetry Heart rate Body temperature Systolic blood pressure Diastolic blood pressure Provider Name and Address Organization Details Last Updated DateTime 9 160.02 cm 31.2 kg/m2 51121.6 6 g 98 % 98 % 94 /min 98.4 [degF] 112 mm[Hg] 62 mm[Hg] Apple Scruggs MA [facility] 9 12:00:17 Date Recorded Body height Body mass index (BMI) Body weight Oxygen saturation Oxygen saturation in Arterial blood by Pulse oximetry Heart rate Body temperature Systolic blood pressure Diastolic blood pressure Provider Name and Address Organization Details Last Updated DateTime 9 160.02 cm 30.8 kg/m2 36779.5 g 94 % 94 % 72 /min 98.1 [degF] 120 mm[Hg] 70 mm[Hg] Joslyn Hanks MA [facility] 9 12:31:25 Date Recorded Body height Body mass index (BMI) Body weight Oxygen saturation Oxygen saturation in Arterial blood by Pulse oximetry Heart rate Body temperature Systolic blood pressure Diastolic blood pressure Provider Name and Address Organization Details Last Updated DateTime 9 160.02 cm 31.1 kg/m2 97269.8 5 g 97 % 97 % 81 /min 98.7 [degF] 110 mm[Hg] 70 mm[Hg] Apple Scruggs MA [facility] 9 16:04:38 Social History Question Answer Notes LastModified by Organizat ion Details LastModified Time Tobacco Smoking Status Former Smoker Pt Quit 2006 Joslyn Hanks MA zita, [facility] 07/09/2018 12:28:32 Do You Have An [...] not available 09/29/2017 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 Information not available 09/29/2017 Are There Any [...] SNOMED-CT Code Diagnosis ICD10 Code Diagnosis Note [id number] [facility] (Adult Med) [address] [place] [address] 10/03/2014 16:05:37 10/03/2014 17:21:42 Hypothyroidism 45353402 Anterior knee pain 709342869 [id number] [facility] (Adult Med) [address] [place] [address] 11/14/2014 14:57:11 11/15/2014 09:10:44 Degenerative disorder of bone 445928518 Postoperat jean hypothyroidism 96038764 [id number] MD [facility]elv[facility] Iraheta (Adult Med) [address] [place] [address] 08/17/2015 10:01:53 08/17/2015 11:00:28 Hypothyroidism 70252151 E03.9 Degenerati ve disorder of bone 919959482 M92.229 Skin lesion 08035528 L98 .9 [id number] KATHARINE Gallardo (Adult Med) [address] [place] [address] 07/31/2016 09:53:37 07/31/2016 11:41:14 Adult health examination 625175454 Z00.01 65 Y/O F presents to establish [...] time. Screening for malignant neoplasm of breast 461216678 Z12.31 Postoperat jean hypothyroidism 39894598 E89.0 levothyrox ine 75mcgWIll recheck levels today Obesity 072872893 E66.9 Advised 30 minutes of exercise 5 days/week Advised to not drink her calories Advised 3 balanced meals/day with plenty of fruits and vegetables [id number] KATH[facility]INE Gallardo (Adult Med) [address] [place] [address] 08/21/2016 11:04:28 08/21/2016 18:23:57 Gynecologic examination 32955554 Z01.639 [id number] KATHARINE Gallardo (Adult Med) [address] [place] [address] 0 10/15/2016 10:21:47 10/15/2016 17:56:50 Sinusitis 06354256 J32.9 sx's > 2 weeks - will treat for sinusitisA dvised to drink plenty of waterAlter diamond ibuprofen and tylenol for painRestOT C cough syrup PRN Allergic rhinitis 966910 04 J30.9 Blood gluc ose outside reference range 174080885 R73.09 FBS: 117 on CMP - will check a1c Hypothyroidism 85987194 E03.9 currently taking levothyrox ine 75mcg QDTSH: 6.87 and free T4: 10.4 - will recheck today Postmenopausal state 764 05569 Z78.0 will check Dexa Scan [id number] KATHARINE Gallardo (Adult Med) [address] [place] [address]751 0 10/21/2016 09:29:18 10/23/2016 11:30:22 Hypothyroidism 78835613 E03.9 currently taking levothyrox ine 75mcg QDthyroid levels WNL - will repeat in 6 months to 1 year Degenerati ve disorder of bone 663570201 M89.8X9 Will readdress at next visitDiscu ssed that we could do OT at this time for her hands, but she would like to hold off on that for right now Fatigue 47085678 R53.83 Patient states that she feels much better than she did last week; however, is still tiredAt this time she doesn't want to proceed with any further testing - states that she will contact us if she desires further testing. States that she feels like this is 2/2 recent illness. [id number] KATHARINE Gallardo (Adult Med) [address] [place] [address] 03/10/2017 08:44:34 03/10/2017 13:33:29 Anterior knee pain 967747130 M25.569 right knee - will begin with xray and then refer to ortho Overweight 270855633 E66 .3 Advised 30 minutes of exercise 5 days/week Advised to not drink her calories Advised 3 balanced meals/day with plenty of fruits and vegetables [id number] KATHARINE Gallardo (Adult Med) [address] [place] [address] 04/13/2017 09:10:22 04/13/2017 11:11:59 Degenerative disorder of bone 890978659 M89.8X9 c/w meloxicam - per patient, working well Dizziness 795163324 R42 At this time patient does not [...] when this occursAdvi sed 1-2L of water/day [id number] KATHARINE Gallardo (Adult Med) [address] [place] [address] 09/29/2017 10:59:58 09/29/2017 12:12:22 Pain in right knee 5695589005 48816 M25.561 Pain and swelling to right knee. [...] tomorrow Body mass index 30+ - obesity 647664459 Z68.39 Advised 30 minutes of exercise 5 days/week Advised to not drink her calories Advised 3 balanced meals/day with plenty of fruits and vegetables [id number] KATHARINE Gallardo (Adult Med) [address] [place] [address] 0 12/15/2017 10:53:09 12/16/2017 10:05:23 Fatigue 42492997 R53.83 Will check basic labs and also send for sleep studyAt this time she doesn't want to proceed with any further testing - states that she will contact us if she desires further testing. States that she feels like this is 2/2 recent illness. Blood gluc ose outside reference range 608019526 R73.09 a1c: 6.0 on 10/15/16 - will address at next appointmen t Hypothyroidism 95481955 E03.9 currently taking levothyrox ine 75mcg QDlast thyroid levels WNL - will repeat Hypersomnia 46227079 G47 .10 Will refer for sleep study Screening for malignant neoplasm of breast 992239057 Z12.31 Postmenopausal state 764 93183 Z78.0 will check Dexa Scan [id number] MD Etelvina Aviles (Adult Med) [address] [place] [address] 01/05/2018 14:28:14 01/06/2018 09:29:16 Pain in right heel 4786277875 816124 M79.671 Trial of tramadol prn. Continue acetaminop hen. Discussed xrays of heel [id number] RITESH GALEANO (Adult Med) [address] [place] [address]2779[address] 02/08/2018 14:31:34 02/10/2018 10:47:31 Pain in right heel 3494543373 364600 M79.671 get XR donestart at home stretching exercisesm ay take tramadol if needed or tylenol-no nsaidsrefe r to podiatry for further recommenda tionsf/u prn Fatigue 01645331 R53.83 labs for fatigue normalrule out KRISTIN-she has order for sleep studyf/u after sleep study done [id number] KATHARINE Gallardo (Adult Med) [address] [place] [address] 0 04/13/2018 09:42:13 04/13/2018 12:19:11 Serum creatinine above reference range 334552406 R79.89 Patient has been alternatin g 7.5mg [...] to do based on BMP Plantar fasciitis 718490 003 M72.2 Right heel - now followed by Dr. Martinez [id number] FREDERICK Manzanares (Adult Med) [address] [place] [address] 06/25/2018 11:37:56 06/28/2018 10:04:05 Hypothyroidism 21412710 E03.9 [id number] FR[facility]ERICK Manzanares (Adult Med) [address] [place] [address] 82501[address] 0 07/09/2018 11:46:40 07/12/2018 09:17:15 Acute upper respiratory infection 87005673 J06.9 Patient was seen in urgent care, has taken all of the medication , symptom resolved. [id number] ISABELLA MCELROY-Herlinda Main (Adult Med) [address] [place] [address] 09/15/2018 15:48:28 09/16/2018 15:46:55 Pain in right heel 1679076886 368525 M79.671 -Pt reports history of plantar fasciitis managed with steroid injection by podiatry-P odiatry last seen in Nov-Pt requesting referral for follow up as she has not visited in close to 6 mos-Pain in heal more prominent upon awakening. NSAID not effective in modifying pain Pain in right knee 31106 45191 87449 M25.561 -Reports pain in right knee-Histo rical XR reveals OA. Pt takes Meloxicam and does not feel it is as effective. -Possibly increased demand on knee secondary to plantar fasciitis- Pt to follow with podiatry and return for eval of knee in terms of making medication changes or referring to PT Hypothyroidism 47364358 E03.9 -Pt denies changes, disease state stable-RF [...] 02/08/2018 1 [place] Conchita A Gehling [id number] Conchita A Gehling 02/08/2018 2 [employer]ANCE (MEDICARE SUPPLEMENT) Conchita A Gehling [id number] Conchita A Gehling 04/13/2018 1 [place] Conchita A Gehling [id number] Conchita A Gehling 04/13/2018 2 [employer] (MEDICARE SUPPLEMENT) Conchita A Gehling [id number] Conchita A Gehling 06/25/2018 1 [place] Conchita A Gehling [id number] Conchita A Gehling 07/09/2018 1 [place] Conchita A Gehling [id number] Conchita A Gehling 09/15/2018 1 [place] Conchita A Gehling [id number] Conchita A Gehling 09/15/2018 2 [employer] Conchita Mcmahan [id number] Conchita Mcmahan Notes Date Note Type Note [...] fatigue has good sleep hygeine DIDIER CRAIN, WHOLESALE BUYER-C Attn: Accounting,[address], [place], [address], [facility] 02/08/2018 15:48:48 8 text/html 67YO [...] Barb Rene PA-C Attn: Accounting,[address], [place], [address], [facility] 04/13/2018 10:44:01 9 text/html Patient presented today for medication refill, denies having any complaints today and the she is feeling, fine, will come back in in three months for blood work. BRITTA Iniguez NP Attn: Accounting,[address], [place], [address], [facility] 06/25/2018 13:27:32 9 text/html CC Pt still [...] BRITTA Iniguez NP Attn: Accounting,[address], [place], [address], [facility] 07/09/2018 14:12:08 9 text/html Musculoskeletal PainReported bypatient.Location:pain [...] this time. HUMAIRA MCELROY Attn: Accounting,[address] [place], [address], [facility] 09/15/2018 17:32:53 OBGyn Episode No OBEpisode recorded.
--- OUTSIDE RECORDS SUMMARY | 2024-09-20 08:09 | XMS_ITS | Clinical Summary ---
Author Organization [facility] Facility Address [address] [address] Care Team Providers Care Line Controller Name Role Phone Abraham Jones MD Primary Care Provider [phone] Medications cyanocobalamin (VITAMIN B-12) 1000 MCG tablet TAKE 1 TABLET BY MOUTH EVERY DAY 90 tablet 1 11/10/2022 Active Social History Tobacco Use Types Packs/Day Years Used Date Smoking Tobacco: Never Assessed Comments Unknown Sex and Gender Information Value Date Recorded Sex Assigned at Not on file Legal Sex Female 11:40 AM EDT Gender Identity Not on file Sexual Orientation Not on file Last Filed Vital Signs Vital Sign Reading Time Taken Comments Blood Pressure 130/80 04/26/2024 12:55 PM BOARD HANDLER Pulse 78 04/26/2024 12:55 PM BOARD HANDLER Temperature 36.7 C (98 F) 04/26/2024 12:55 PM BOARD HANDLER Respiratory Rate 18 04/26/2024 12:55 PM BOARD HANDLER Oxygen Saturation 99% 04/26/2024 12:55 PM BOARD HANDLER Inhaled Oxygen Concentration - - Weight 80.3 kg (177 lb 1.6 oz) 04/26/2024 12:55 PM BOARD HANDLER Height 162.6 cm (5' 4 ) 04/15/2022 12:35 PM BOARD HANDLER Body Mass Index 30.4 04/15/2022 12:35 PM BOARD HANDLER Plan of Treatment Upcoming Encounters Date Type Department Care Team (Late st Contact Info) Description 05/02/2025 12:30 PM BOARD HANDLER Office Visit [facility] [address] [facility] [address] [place] [address] El Lindquist DO [address] [place] [address] Health Maintenance Due Date Last Done Comments Breast Cancer Screening 1950 Pneumococcal Vaccine: 50+ Years (1 of 2 - PCV) 09/02/1970 Colorectal Cancer Screening: Annual FOBT 09/02/2000 Colorectal Cancer Screening: Colonoscopy 09/02/2000 Colorectal Cancer Screening: Sigmoidoscopy 09/02/2000 Diabetes: Hemoglobin A1C 04/06/2023 Diabetes: Ophthalmology Exam 04/06/2023 Diabetes: Pedal Pulse Checked 04/06/2023 Diabetes: Sensory Foot Exam 04/06/2023 Diabetes: Visual Foot Exam 04/06/2023 Influenza Vaccine Completed 05/12/2024, 04/17/2020, 06/02/2019 Hepatitis B Vaccine Aged Out No longe r eligible based on patient's age to complete this topic Insurance Medicare [facility] Care Teams Line Controller Relationship Specialty Start Date End Date Abraham Jones MD [address] [facility], [address] [place] [address] PCP - General Internal Medicine 04/21/23
--- OUTSIDE RECORDS SUMMARY | 2024-09-20 08:10 | XMS_ITS | Clinical Summary ---
Author Organization [facility] Mitra kimbrough [place] Address [address] [facility] [address] Care Team Providers Care Mannequin Decorator Name Role Phone Abraham Jones MD Primary Care Provider Allergies Active Allergy Reactions Criticality Noted Date Comments Phenytoin Sodium Extended Rash High 07/28/2019 Medications levothyroxine 75 mcg tablet levothyroxine 75 mcg tablet Active fluticasone propionate (FLONASE) 50 mcg/spray [place], Suspension nasal inhaler fluticasone propionate 50 mcg/actuation nasal spray,suspension Active ergocalciferol , vitamin D2, (VITAMIN D ORAL) Vitamin D OTC-1 tab po qd 0 Active naproxen sodium (ALEVE ORAL) Take by mouth 2 times daily. Active rosuvastatin (CRESTOR) 20 mg tablet Take 10 mg by mouth daily. Active meloxicam (MOBIC) 15 mg tablet Take 15 mg by mouth daily. 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 Encounters Date Type Department Care Team Description 08/10/2024 External Device Data STL ABSTRACTION Provider, Abstract 07/30/2024 External Device Data STL ABSTRACTION Provider, Abstract 07/29/2024 External Device Data ST[place] ABSTRACTION Provider, Abstract 07/27/2024 External Device Data ST[place] ABSTRACTION Provider, Abstract 07/15/2024 8:30 AM PRICING STRATEGIST Office Visit [facility] Oncology and Hematology [facility] [address] [place] [address] Dane León MD Immunoglobulin deficiency (Primary Dx) 07/13/2024 External Device Data STL ABSTRACTION Provider, Abstract 07/13/2024 Orders Only [facility] Oncology and Hematology - [place] [address] [place] [address] Dane León MD from Last 3 Months Family History Medical [...] on file Legal Sex Female 9:46 AM PRICING STRATEGIST Gender Identity Not on file Sexual Orientation Not on file Last Filed Vital Signs Vital Sign Reading Time Taken Comments Blood Pressure 139/90 07/15/2024 8:35 AM PRICING STRATEGIST Pulse 73 07/15/2024 8:35 AM PRICING STRATEGIST Temperature 37.1 C (98.8 F) 07/15/2024 8:35 AM PRICING STRATEGIST Respiratory Rate 15 07/15/2024 8:35 AM PRICING STRATEGIST Oxygen Saturation 96% 07/15/2024 8:35 AM PRICING STRATEGIST Inhaled Oxygen Concentration - - Weight 80.3 kg (177 lb) 07/15/2024 8:35 AM PRICING STRATEGIST Height 162.6 cm (5' 4 ) 12/30/2021 10:03 AM CDT Body Mass Index 30.38 12/30/2021 10:03 AM CDT Plan of Treatment Upcoming Encounters Date Type Department Care Team (Late st Contact Info) Description 12/30/2024 9:00 AM CDT Office Visit [facility] Oncology and Hematology - [place] [address] [place] [address] Dane León MD [address] [facility] [address] [place] [address] Health Maintenance Due Date Last Done Comments DIABETES ANNUAL FOOT EXAM 09/02/1969 DIABETES MICROALBUMIN ANNUAL SCREEN 09/02/1969 LDL CHOLESTEROL ANNUAL 09/02/1969 DTAP/TDAP/TD VACCINES (1 - Tdap) 09/02/1970 FIT-DNA Q 3 years 09/02/1996 FIT/FOBT Q 1 year 09/02/1996 Flex Sig/CT Colonography Q 5 years 09/02/1996 RSV VACCINE (60+ or ) (1 - Risk 60-74 years 1-dose series) 2011 DIABETES ANNUAL RETINAL EXAM 02/26/2022 02/26/2021, 02/03/2020 DIABETES HBA1C Q 6 MONTHS 09/19/20232022, 01/01/2023, 09/04/2022, Additional history exists BREAST CANCER SCREENING 05/06/2024 05/06/20, 05/06/2023, 04/29/2022, Additional history exists COVID-19 Vaccine (8 - Modern a risk season) 2024 04/01/2024, 03/16/2023, 03/06/2022, Additional history exists OSTEOPOROSIS SCREENING 06/25/2026 06/25/2021, 2018 COLORECTAL SCREENING 04/26/2029 04/26/2019, 04/26/2019, 04/26/2019, Additional history exists Colorectal Cancer Screening 04/26/2029 ZOSTER VACCINE Completed 03/16/2023, 02/23, 01/12/2023 PNEUMOCOCCAL VACCINE 50+ YEARS Completed 11/12/2023 INFLUENZA VACCINE Completed 05/12/2024, , 03/06/2022, Additional history exists Procedures Procedure Name Priority Date/Time Associated Diagnosis Comments COMPREHENSIVE METABOLIC PANEL Routine 07/07/2024 7:56 AM PRICING STRATEGIST from Last 3 Months Results * COMPREHENSIVE METABOLIC PANEL (07/07/2024 7:56 AM PRICING STRATEGIST) Blood us Dane León MD CHEMISTRY ORDERABLES Final Resu lt from Last [address] [place] [id number] Care Teams Mannequin Decorator Relationship Specialty Start Date End Date Abraham Jones MD PCP - General Internal Medicine 06/02/19
--- OUTSIDE RECORDS SUMMARY | 2024-09-20 08:10 | XMS_ITS | CONTINUITY OF CARE DOCUMENT ---
Author Name scoutsarmad scoutsarmad Address Unknown Organization [facility] Address [address] [place] [address] Phone [phone] Care Team Providers Care Stress Test Technician Name Role Phone Jerome Lizama MD Unavailable [phone] NIKITA DALTON MD Unavailable NIKITA DALTON MD Unavailable PROBLEMS Condition Status Date Provider Notes Former smoker, quit >1 yr active Tracy Julian timiglia RN REGISTRY Hyperlipidemia active Tracy Ventimiglia FN P Family hx of aortic aneurysm active Tracybarbara Mcclendonmiglia RN REGISTRY Preoperative cardiovascular examination active Jerome Lizama MD Family History of CVA or Stroke: active ? Neisha Lizama MD Family History of CVA or Stroke: active ? Neisha Lizama MD ENCOUNTERS Date Type Provider Location Encounter Diag nosis - In-person encounter Office Visit Jerome Lizama MD [facility] - In-person encounter Office Visit Jerome Lizama MD [facility] Family hx of aortic aneurysmHyperlipidemiaFormer smoker, quit >1 yr - In-person encounter Office Visit Jerome Lizama MD [facility] Family History of CVA or Stroke:Family History of CVA or Stroke:Preoperative cardiovascular examination VITAL SIGNS Date Observation Value Provider Body Mass Index (Ratio) 29.28 kg/m2 Shaye Lizama MD blood pressure, diastolic 74 mm[Hg] Alfredo coles Maher blood pressure, systolic 138 mm[Hg] Travis garibay Maher weight E&M 170.6 [lb_av] Michelle Maher blood pressure, cuff size regular Alfredo coles Maher pulse rate 65 /min Michelle Calhoun oxygen saturation, oximetry 98 % Michelle Maher respiratory rate E&M 12 /min Michelle Calhoun height E&M 64 [in_i] Michelle Calhoun Body Mass Index (Ratio) 29.35 kg/m2 Shaye Lizama MD blood pressure, diastolic 75 mm[Hg] Vi estiven [facility] blood pressure, systolic 116 mm[Hg] [facility] in [facility] pulse rate 76 /min [facility] respiratory rate E&M 16 /min [facility] oxygen saturation, oximetry 95 % [facility] blood pressure, cuff size regular Vi estiven [facility] weight E&M 171 [lb_av] [facility] height E&M 64 [in_i] [facility] Body Mass Index (Ratio) 30.72 kg/m2 Shaye Lizama MD blood pressure, cuff size regular Cr everardo Ahumada blood pressure, diastolic 70 mm[Hg] Cr everardo Ahumada blood pressure, systolic 120 mm[Hg] Cry stal Brandyn oxygen saturation, oximetry 97 % Meena Ahumada respiratory rate E&M 17 /min Meena Ahumada pulse rate 82 /min Meena kimbrough blood pressure, resting No Roula nicholas Ahumada weight E&M 179 [lb_av] Meena kimbrough height E&M 64 [in_i] Meena kimbrough ALLERGIES Allergy Name Onset Date Reaction Criticality Status DILANTIN High Criticality active HISTORY OF MEDICATION USE Medication Status Instructions Dates Provider Indications Com ments levothyroxine 75 mcg tablet active Tracy Ventimiglia RN REGISTRY rosuvastatin 10 mg tablet active Tracy Ventimiglia RN REGISTRY cyanocobalamin (vitamin B-12) 1,000 mcg tablet active Tracy Ventimiglia RN REGISTRY fluticasone propionate 44 mcg/actuation HFA aerosol inhaler active Tracy Ventimiglia RN REGISTRY SOCIAL HISTORY Date Observation Value Provider number of grandchildren Jerome Lizama MD U marcell Lizama MD alcohol use no Jerome Lizama MD cigarette use yes Jerome Guzmán smoking status Former smoker Jerome Lizama MD alcohol use no Tracy Ventimig woodrow RN REGISTRY cigarette use yes Tracy Ventimi glia RN REGISTRY smoking status Former smoker Tracy Venti miglia RN REGISTRY alcohol use, average drinks per day social Jerome Lizama MD alcohol use yes Jerome Lizama MD social history E&M S moking History: Dexter soto has never smoked. Jerome Lizama MD social history reviewed E&M revi ewed - no changes required Jerome Lizama MD smoking status Never smoker Meena Del Angel ams FAMILY HISTORY Family Member Condition Father Family History of CV A or Stroke: Mother Family History of CV A or Stroke: INSURANCE PROVIDERS Payer name Policy type / Coverage type [place] [employer] party ID Guarantee Trust Insurance Commercial insurance c ompany [id number] [place] MEDICARE Medicare [id number] ADVANCE DIRECTIVES Name Date DISCUSSED - NO DECISION MADE TREATMENT PLAN Date Name Performer Cardiology Jerome Lizama MD Cardiology: H er updated medication list for this problem includes: Rosuvastatin 10 Mg Tablet (Rosuvastatin) Jerome Lizama MD Cardiology: H er updated medication list for this problem includes: Rosuvastatin 10 Mg Tablet (Rosuvastatin) Tracy Zavaleta [facility] Cardiology:Former john pruitt, a rrange for AAA and echo Tracy Zavaleta [facility] Cardiology Jerome Lizama MD Cardiology:She has n o symptoms of ACS, valvular disease, or rythm disturbances. In view of the upcoming surgery, in my opinion she is cleared for surgery and is low risk of any cardiac events. Jerome Lizama MD Date Name Aorta Duplex Ultraso und Complete Echo
--- OUTSIDE RECORDS SUMMARY | 2024-09-20 08:10 | XMS_ITS | Clinical Summary ---
Author Organization [facility] Address [address] [place] [address] Phone Care Team Providers Care Filler Shaker Name Role Phone Abraham Jones MD Primary [...] Comments Blood Pressure 122/72 07/05/2020 1:55 PM MACHINE BUFFER Pulse 86 07/05/2020 1:55 PM MACHINE BUFFER Temperature 37.3 C (99.2 F) 07/05/2020 1:55 PM MACHINE BUFFER Respiratory Rate 18 07/05/2020 1:55 PM MACHINE BUFFER Oxygen Saturation 96% 07/05/2020 1:55 PM MACHINE BUFFER Inhaled Oxygen Concentration - - Weight 84.4 kg (186 lb) 07/05/2020 1:55 PM MACHINE BUFFER Height 162.6 cm (5' 4 ) 07/05/2020 1:55 PM MACHINE BUFFER Body Mass Index 31.93 07/05/2020 1:55 PM MACHINE BUFFER Plan of Treatment Health Maintenance Due Date Last Done Comments Hepatitis C Virus (HCV) Screening 1950 TdaP Immunization 1950 Colonoscopy 09/02/1996 Colorectal Cancer Screening 09/02/1996 Cologuard 09/02/2001 Immunochemical Fecal Occult Blood 09/02/2001 Pneumococcal Immunization (50+ years) (1 of [...] age to complete this topic Insurance MEDICARE [facility] LIFE [facility]URANCE Care Teams Filler Shaker Relationship Specialty Start Date End Date Abraham Jones MD [address] [place] [address] [place] [id number] PCP - General Internal Medicine 06/07/20
--- OUTSIDE RECORDS SUMMARY | 2024-09-20 08:10 | XMS_ITS | Data Portability ---
Author Organization [place] - [facility] [email or web address] [facility], Main Office Address [address] [place] [address] Care Team Providers Care Recruiting Internship Name Role Phone ABRAHAM JONES Primary Care Provider [phone] ABRAHAM JONES Referring Provider goviral VISION Glost Kiln Operator MALISSA JADE Silvering Applicator MATEO HECTOR Vest Backer HOLLY LEÓN Hematology/Oncology [phone] [facility] Linux Systems Analyst Assessment Encounter Date Assessment Date Assessment LastModified by Organization Details LastModified Time 04/18/2024 04/18/2024 This note is dictated and transcribed by [employer] Direct Software. Back Stayer variances may occur. Despite proofreading, typographical errors may occur. Occasional wrong-word or 'yyfzq-v-cnhg' substitutions may have occurred due to the [...] 04/18/2024: TSH 0.373L, FT4 1.31 A1C 6.0 [email or web address] Not available 05/11/2024 18:34:36 06/21/2024 06/21/2024 This note is dictated and transcribed by [employer]. Back [employer]ayer variances may occur. Despite proofreading, typographical errors may occur. Occasional wrong-word or 'rbvkg-z-emnn' substitutions may have occurred due to the [...] the plan. [email or web address] Not available 06/27/2024 09:49:44 09/12/2024 09/12/2024 73-year-old female who presents for re-evaluation of her right wrist de quervain tenosynovitis. She reports pain since April located over the radial aspect of the wrist in the base of the thumb. At her last appointment we gave her a thumb spica brace, ordered physical therapy and ordered meloxicam. Today she rates her pain 8/10 and feels like it has not gotten any better. She states that she only sometimes wears the brace, she was not told to wear it all the time. She went to 2 visits of physical therapy but did not feel like it was helpful because they were not 1 on 1 sessions. She states she tried to do the exercises on her own but it was too painful. She is not taking the meloxicam because she states she has kidney disease that was started by meloxicam many years ago. She has been taking Tylenol and using a natural topical ointment, which sometimes helps. Physical exam: She has tenderness to palpitation over the 1st extensor compartment. No tenderness over the thumb CMC or elsewhere in the hand and wrist. Negative grind. Positive Gypsy. She has de Quervain tenosynovitis. We discussed wearing the thumb spica brace as often as possible to rest the tendon. She can continue taking tylenol as needed. Since she cannot take oral anti-inflammator ies she should continue with tylenol. We also recommend trying voltaren gel over the area. Due to the severity of her pain we discussed risks and benefits of a cortisone injection into the tendon sheath. She elected to proceed with this today. We discussed that this condition typically gets better on its own without requiring surgery, we will see her back in 4-6 weeks for recheck. At that time if she has persistent symptoms we would consider a surgical discussion. [email or web address] Not available 09/12/2024 14:33:05 Plan of Treatment Reminders Order Date Submit Date Provider Last Modified By Organization Details Last Modified Time Details Appointments Any 15 2024 03:45P José Miguel enriquez MD Not available Not available Not available Any 5 2024 11:05A José Miguel Gutierrez MD Not available Not available Not available Lab glycohemo globin, total, blood 2023 024 [email or web address] [facility] (Lab), [address] [place], [address], 05/31/2024 09:15:55 microalbu min, urine [address] (Lab), [address] [place], [address], 05/31/2024 09:15:55 lipid panel, serum [address] (Lab), [address] [place], [address], 05/31/2024 09:15:55 CBC w/ auto diff [address] (Lab), [address] [place], [address], 05/31/2024 09:15:55 T4, free, serum [address] (Lab), [address] [place], [address], 05/31/2024 09:15:55 CMP, serum or plasma [address] (Lab), [address] [place], [address], 05/31/2024 09:15:55 TSH, serum or plasma [address] (Lab), [address] [place], [address], 05/31/2024 09:15:55 Referral physical therapist referral - Please contact pt to schedule apt for R wrist/ R thumb. Thanks 2024 025 [facility] [place], [address] [facility], [place], [address], 07/04/2024 14:29:33 gynecolog ist referral - Please call patient to schedule. 2023 024 [email or web address] Kenyetta Allen MD, [address], [place], [address], 07/20/2024 09:50:50 podiatris t referral 2023 024 [email or web address] Mateo Hector DPM, [address], [place], [address], 05/31/2024 09:15:55 orthopedi c surgeon referral - Please call patient to schedule. 2023 024 LOUIE Gutierrez MD, [address], [place], [address], 06/27/2024 09:55:53 Procedures None recorded. Surgeries None recorded. Imaging XR, wrist, 3 or more view 2024 025 [facility] [place], [address], [place], [address], 09/12/2024 10:46:38 Medication Orders Mobic 15 mg tablet 2024 025 [email or web address] [facility] [id number] [facility], [address] [place], [address], 06/27/2024 10:19:05 Patient TargetsNo targets recorded. Patient Instructions Encounter Date Encounter Id Patient Instructions Last Modified By Organization Details Last Modified Time 05/12/2024 [id number] diabetic eye exam* [email or web address] Not available 05/31/2024 09:15:55 Reason for Referral Vest Backer Referral for Type 2 diabetes mellitus without complication Referring Physician: Abraham Jones, Internal Medicine, Encounter Date: 05/12/2024 Orthopedic Surgeon Referral for Pain of right wrist Please call patient to schedule. Referring Physician: Abraham Jones, Internal Medicine, Encounter Date: 05/12/2024 Estate [employer] Trust Tax Principal Referral for Gy necologic examination Please call [...] Abnormal Flag Note LastModifiedBy Organization Detail LastModifiedTime 05/09/20 24 05/09/2024 DEXA, axial skele ton [facility] [address] [facility] [place] [address] [phone] Patien t Name: EVELYN SALAZAR Access ion #: [id number] Sex: F : 1950 1 Dictat ed By: Kezia Garzon Attend ing Physic giacomo: BETY WEN [facility] Physic giacomo: BETY WEN Exam Date: 2023 [...] ent. T-scor e: compar mary by paris tolliver deviat ion (SD) to a young adult popula amy patel for sex and ethnic ity (used for postme nopaus al women and men >50 years) and classi fied by WHO criter ia. -1.0: normal <-1.0 to >-2.5: osteop enia -2.5: osteop orosis Page 1 [facility] [place] [address] [place] [address] Patien t Name: EVELYN SALAZAR Access ion #: [id number] Sex: F : 1950 1 Dictat ed By: Kezia Garzon Attend ing Physic giacomo: SONAM ARCOS Ordermarie huerta Physic giacomo: BETY WEN Exam [...] 2023 07:50: 05 AM Page 2 INTERFACE [facility] (Imaging) [address] [place], [address], 05/09/2024 08:54:16 05/09/20 24 05/09/2024 imagi ng/di james tic resul t No observ ation record ed. [facility] [address] [place], [address], 05/09/2024 08:56:46 05/09/20 24 05/09/2024 scree jami breas t sandra, bilat [facility] [place] [address] [place] [address] Patien t Name: EVELYN SALAZAR Access ion #: [id number] Sex: F : 1950 1 Dictat ed By: Kezia santana Garzon Attend ing Physic giacomo: SONAM BETY JJ Orderi Physic giacomo: SONAM JJBETY Exam Date: 2023 07:35 AM Exam Name: [...] of breast cancer screen ing with mammog nanette. FINDIN GS: BREAST COMPOS ITION: B - [...] annual mammog efrem. ASSESS MENT: Page 1 [facility] [place] [address] [facility], [place] [address] [phone] Patishin t Name: EVELYN SALAZAR Access ion #: [id number] Sex: F : 1950 1 Dictat ed By: Kezia Garzon Attend ing Physic giacomo: SONAM ARCOS Orderi Physic giacomo: BETY WEN Exam Date: 2023 07:35 AM Exam Name: MG SCRN BREAST SANDRA BILAT Admitt ing Diagno sis(es ): BIRADS : 1 - Negati ve Electr onical ly Signed by: Kezia Garzon at 2023 07:56: 40 AM Page 2 INTERFACE [facility] (Imaging) [address] [place], [address], 05/09/2024 09:01:16 05/09/20 24 05/09/2024 MAMMO , scree jami, digit al, bilat eral No observ ation record ed. [facility] [address] [place], [address], 05/09/2024 09:03:28 06/27/19 25 XR, wrist , 3 or more view No observ ation record ed. [facility] [address], [address], 09/12/2024 10:46:51 Result Notes None recorded. Problems Name Problem SNOMED Code Status Onset Date Resolution Date Notes Provider Name and Address Organization Details Recorded Time Urinary incontinen ce 324051330 Active 2022 Not Available [facility] 3 22:33:26 COVID-19 405928045 Active 2022 Not Available [facility] 3 22:33:26 Female stress incontinen ce 06957366 Active 2022 Rama Brambila APRN [address] [facility] [address], [place], [address] , [facility] 4 07:50:48 Anxiety 62902931 Active 2022 Rama Brambila APRN [address] [facility], [address], [place], [address] , [employer] [facility] 4 07:51:13 Hyperlipid emia 60141639 Active 2022 Rama Brambila APRN [address], [address], [place], [address] , [employer] [facility] 4 07:50:57 Chronic kidney disease 953500586 Active 2022 Rama Brambila APRN [address], [address], [place], [address] , [employer] [facility] 4 07:50:28 Hypoprotei nemia 1884468 Active 2022 Not Available [facility] 3 22:33:26 Hypothyroi dism 63040362 Active 2022 Rama Brambila APRN [address], [address], [place], [address] , [employer] [facility] 4 07:51:32 Obesity 493510947 Active 2022 Rama Brambila APRN [address], [address], [place], [address] , [employer] [facility] 4 07:50:59 Gastroesop hageal reflux disease without esophagiti s 258670257 Active 2022 Rama Brambila APRN [address], [address], [place], [address] , [employer] [facility] [employer] [facility] 4 07:50:51 Erythrocyt osis 875628517 Active 2022 Not Available [employer] 3 22:33:26 Pain of left hand 7860170314843 03 Active 2022 Not Available [facility] 3 22:33:26 Bilateral hearing loss 55981908 Active 2022 Rama Brambila APRN [address], [address], [place], [address] , [employer] [facility] [employer] [facility] 4 07:51:24 Fracture of triquetral bone of wrist 8676411 Active 2022 Not Available [employer] 3 22:33:26 Impaired glucose tolerance 3382668 Active 2022 Mateo Hector DPM [address], [address], [place], [address] , [facility] 3 15:06:45 Congenital pes cavus 898603819 Active 2022 Rama Brambila APRN [address], [address], [place], [address] , [place] [facility] 4 07:50:32 Hammer toe 044339099 Active 2022 Rama Brambila APRN [address], [address], [place], [address] , [place] [facility] 4 07:50:53 Bilateral hearing loss 46223855 Active 2023 Abraham santana MD [address], [address], [place], [address] , [employer] [facility] 4 09:40:31 Pain of right wrist 1634319501560 00 Active 2023 Abraham santana MD [address], [address], [place], [address] , [employer] [facility] 4 10:31:03 Closed fracture of left wrist 5967033108096 91 Active 2021 Not Available [employer] 3 22:33:26 Congenital pes cavus of right foot 0129537586115 9101 Active 2020 Not Available [employer] 3 22:33:26 Plantar fasciitis of right foot 9745909289487 9101 Active 2017 Not Available [employer] 3 22:33:26 Hammer toe 573151217 Active 2019 Not Available [employer] 3 22:33:26 Disorder of thyroid gland 16276339 Active Rama Brambila APRN [address], [address], [place], [address] , [employer] 4 07:50:43 Type 2 diabetes mellitus without complicati on 028408666 Active 2019 Not Available [facility] 3 22:33:26 Pain of left wrist 7169546727728 02 Active 2021 Not Available [employer] 3 22:33:26 Osteoarthr itis 576917080 Active Rama Brambila APRN [address], [address], [place], [address] , [employer] 4 07:51:06 Foot pain 06843220 Active 2019 Not Available [facility] 3 22:33:26 Pruritic rash 62627447 Active 2021 Not Available [facility] 3 22:33:26 Diabetes mellitus 57570242 Active 2020 Rama Brambila APRN [address], [address], [place], [address] , [employer] 4 07:50:40 Problem Notes None recorded. Procedures Surgical History Date Name Laterality Status Provider Name and Address Organization Details Recorded Time 09/13/19 25 Ortho - Cortisone Injection completed Marilou Rolon NP [address], [address], [place], [address], [email or web address] 09/12/2024 14:33:38 01/08/20 24 Chronic care management services completed Navya Winston [facility] [employer] 01/08/2024 14:14:35 11/12/19 24 Medicare Wellness CPT Code, subsequent completed Hever Sam LPN [employer] 11/10/2023 13:12:24 11/12/19 24 Advanced Care Planning completed Hever Sam LPN [email or web address] 11/12/2023 10:14:18 07/17/19 23 repair of stress incontinence by suprapubic sling completed ROBERTO Arellano [employer] 09/09/2022 09:06:56 06/25/19 22 Most Recent Bone Density completed Not Available [facility] 07/23/2022 04:43:37 04/26/20 19 Date of Last Colonoscopy completed Not Available [facility] 07/23/2022 04:43:36 04/25/20 19 Colonoscopy completed Not Available [facility] 07/24/19 04:43:40 12/01/19 19 Total knee arthroplasty completed Not Available [facility] 07/23/2022 04:43:40 thyroidectomy completed Not Available [facility] 07/23/2022 04:43:40 Orthopedic Surgery completed Not Available [facility] 07/23/2022 04:43:40 Cataract Surgery completed Cynthia agarwal [facility] [employer] 11/12/2023 09:51:35 Imaging Results Imaging Date Name Status LastModified by Organiz ation Details LastModified Time 05/09/2024 DEXA, axial skeleton active [facility] (Imaging) [address] [place], [address], 05/09/2024 08:54:16 05/09/2024 imaging/diagno stic result active [facility] [address] [place], [address], 05/09/2024 08:56:46 05/09/2024 screening breast sandra, bilat active [facility] (Imaging) [address] [place], [address], 05/09/2024 09:01:16 05/09/2024 MAMMO, screening, digital, bilateral active [facility] [address] [place], [address], 05/09/2024 09:03:28 06/27/2024 XR, wrist, 3 or more view completed [email or web address] [facility] [address], [place], [address], 09/12/2024 10:46:51 Procedure Notes None recorded. Medical Equipment None Reported. Allergies Allergen ID Allergen Name Allergen Category Reaction Reaction Severity Criticality Documentation Date Start Date Code Code System Note Provider Name and Address Organization Details Recorded Time 42112 phenytoin medicatio n Not available Not available Not available 09/21/2023 8183 RxNorm Other react ions and sever ities : 'Adve rse react ion to subst ance' . Rama Brambila, [employer] [address] [facility], [place], [address] , [facility] [email or web address] 4 07:52:39 8094 Dilantin medicatio n rash Not available Not available 07/23/2022 85793 0 RxNorm Not Available [facility] 3 05:03:58 Medications Name Sig Start [...] Not Available Not Available Not Available meloxicam 15 mg tablet TAKE 1 TABLET BY MOUTH EVERY DAY active Not Available Not Available No t Available ondansetron HCl 4 mg tablet Take [...] ne 75 mcg tablet TAKE 1 TABLET BY MOUTH DAILY active Not Available Not Available No t Available Aleve 220 mg tablet Take 1 tablet every 12 hours by oral route. 12/06 completed Not Available Not Available Not Available meloxicam 7.5 mg tablet active Not Available Not Available Not Available oxycodone-a cetaminophe n 5 mg-325 mg tablet [...] n 10 mg tablet TAKE 1 TABLET BY MOUTH EVERY DAY active Not Available Not Available [...] Updated DateTime 4 162.56 cm 29.5 kg/m2 13712.8 9 g 81 /min 14 /min 98 % 98 % 138 mm[Hg] 90 mm[Hg] Aline ESPINOZA - Junie [employer] [facility] 4 16:07:58 Date Recorded Body height Body mass index (BMI) Body weight Body temperature Heart rate Systolic blood pressure Diastolic blood pressure Provider Name and Address Organization Details Last Updated DateTime 4 162.56 cm 30.2 kg/m2 68044.2 6 g 97.6 [degF] 78 /min 126 mm[Hg] 80 mm[Hg] [facility] 4 09:49:36 Date Recorded Body height Body mass index (BMI) Body weight Heart rate Respiratory rate Oxygen saturation Oxygen saturation in Arterial blood by Pulse oximetry Systolic blood pressure Diastolic blood pressure Provider Name and Address Organization Details Last Updated DateTime 5 162.56 cm 30.2 kg/m2 38486.2 6 g 78 /min 14 /min 98 % 98 % 124 mm[Hg] 82 mm[Hg] Aline [facility] 5 15:26:14 Date Recorded Body height Body mass index (BMI) Body weight Pain severity - 0-10 verbal numeric rating [Score] - Reported Provider Name and Address Organization Details Last Updated DateTime 06/27/2024 162.56 cm 30.2 kg/m2 94034.26 g 6 Nimisha Nelson [facility] 06/27/2024 09:30:20 Date Recorded Body height Body mass index (BMI) Body weight Pain severity - 0-10 verbal numeric rating [Score] - Reported Provider Name and Address Organization Details Last Updated DateTime 09/12/2024 162.56 cm 30.2 kg/m2 47337.26 g 8 Nimisha Nelson [facility] 09/12/2024 10:45:25 Social History Question Answer Notes LastModified by Organization Details LastModified Time Tobacco Smoking Status Former Smoker quit 16+ Not Available [facility] 07/23/2022 04:29:54 Do You Have An Advance Directive? No MIGRATION.030 [id number] Information not available 07/23/2022 What Is Your Level Of Alcohol Consumption? None [email or web address] Information not available 11/12/2023 Do You Wear A Helmet When Biking? No N/A Information not available 11/12/2023 Are You Blind Or Do You Have Difficulty Seeing? No [id number] Information not available 07/23/2022 Is Blood Transfusion Acceptable In An Emergency? Yes Information not available 11/12/2023 What Is Your Level Of Caffeine Consumption? Heavy MIGRATION.030 032665 Information not available 07/23/2022 How Much Tobacco Do You Chew? None MIGRATION.030 387404 Information not available 07/23/2022 What Is Your Code Status? Full Code Information not available 11/12/2023 In The 14 Days Before Symptom Onset, Have You Had Close Contact With A Laboratory-confi rmed COVID-19 While That Case Was Ill? No MIGRATION.0301 [id number] Information not available 07/23/2022 In The 14 Days Before Symptom Onset, Have You Had Close Contact With A Person Who Is Under Investigation For COVID-19 While That Person Was Ill? No MIGRATION.030 498242 Information not available 07/23/2022 Are You Currently Employed? Yes Semi Retired [email or web address] Information not available 11/12/2023 Are You Deaf Or Do You Have Serious Difficulty Hearing? Yes Loss Of [place] Both Ears [email or web address] Information not available 11/12/2023 What Type Of Diet Are You Following? REGULAR MIGRATION.030 954482 Information not available 07/23/2022 Which Illicit Or Recreational Drugs Have You Used? None MIGRATION.030 079688 Information not available 07/23/2022 What Is The Highest Grade Or Level Of School You Have Completed Or The Highest Degree You Have Received? 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 No MIGRATION.030 900747 Information not available 07/23/2022 What Is The Fluoride Status Of Your Home? Unknown MIGRATION.030 131464 Information not available 07/23/2022 When Did You Quit Smoking? 17+yearssincelastc igarette MIGRATION.030 666763 Information not available 07/23/2022 Are There Any Guns Present In Your Home? No MIGRATION.030 869774 Information not available 07/23/2022 Do You Use Insect Repellent Routinely? Yes MIGRATION.030 792936 Information not available 07/23/2022 Where Do You Live? [place] MIGRATION.030 470137 Information not available 07/23/2022 Presence Of Domestic Violence No [email or web address] Information not available 11/12/2023 Guns Present In The Home? No [email or web address] Information not available 11/12/2023 Are You Able To Care For Yourself? Yes [email or web address] Information not available 11/12/2023 Are You Blind Or Do Yo Have Difficulty Seeing? No [email or web address] Information not available 11/12/2023 Are You Deaf Or Do You Have Serious Difficulty Hearing? Yes Loss Hearing Both Ears [email or web address] Information not available 11/12/2023 General Stress Level? Moderate [email or web address] Information not available 11/12/2023 Live Alone Of With Others? Alone [email or web address] Information not available 11/12/2023 Do You Have A Medical Power Of Spare Person? No MIGRATION.0301 [id number] Information not available 07/23/2022 What Was The Date Of Your Most Recent Tobacco Screening? 05/12/2024 [email or web address] Information not available 05/12/2024 How Many Children Do You Have? 0 [email or web address] Information not available 11/12/2023 Do You Have Any Pets? No MIGRATION.0301 [id number] Information not available 07/23/2022 What Is Your Relationship Status? MIGRATION.0301 [id number] Information not available 07/23/2022 Do You Use Your Seat Belt Or Car Seat Routinely? Yes MIGRATION.0301 846304 Information not available 07/23/2022 Do You Have Smoke And Carbon Monoxide Detectors In Your Home? Yes MIGRATION.0301 758814 Information not available 07/23/2022 Are You Passively Exposed To Smoke? No MIGRATION.0301 928768 Information not available 07/23/2022 Are There Any Smokers In Your House? No MIGRATION.0301 808171 Information not available 07/23/2022 How Much Tobacco Do You Smoke? No [email or web address] Information not available 11/12/2023 Do You Feel Stressed (tense, Restless, Nervous, Or Anxious, Or Unable To Sleep At Night)? [id number] MIGRATION.0301 986048 Information not available 07/23/2022 Do You Use Any Illicit Or Recreational Drugs? No MIGRATION.0301 004683 Information not available 07/23/2022 Do You Use Sunscreen Routinely? No MIGRATION.0301 103432 Information not available 07/23/2022 Has Tobacco Cessation Counseling Been Provided? No N/A [email or web address] Information not available 11/12/2023 How Many Years Have You Smoked Tobacco? 15 MIGRATION.0301 180177 Information not available 07/23/2022 Have You Recently Traveled Abroad? No MIGRATION.0301 322943 Information not available 07/23/2022 Do You Have Any Dietary Restrictions? No MIGRATION.0301 449479 Information not available 07/23/2022 Do You Or Have You Ever Used Any Other Forms Of Tobacco Or Nicotine? No MIGRATION.0301 748696 Information not available 07/23/2022 Sex: Female Functional Status Question Answer Note LastModified by [employer] Details LastModified Time Do you have difficulty walking or climbing stairs? No MIGRATION.4442558 026 Information not available 07/23/2022 Do you have transportation difficulties? No MIGRATION.7399270 026 Information not available 07/23/2022 Are you able to walk? YESWOREST MIGRATION.2362580 026 Information not available 07/23/2022 Do you have difficulty doing errands alone? No [id number] Information not available 07/23/2022 Are you able to care for yourself? Yes [id number] Information not available 07/23/2022 Do you have difficulty dressing or bathing? No [id number] Information not available 07/23/2022 What is your exercise level? Occasional [id number] Information not available 07/23/2022 Mental Status Question Answer Note LastModified by [employer] Details LastModified Time Do you have difficulty concentrating, remembering or making decisions? No [id number] Information not available 07/23/2022 Family History Relationship Description Onset Age of this Age Resolved Age Notes LastModified by Organization Details LastModified Time Father Cerebrovascu lar accident [id number] Not available 07/23/2022 04:43:44 Father Family history of stroke [id number] Not available 07/23/2022 04:43:44 Mother Cerebrovascu lar accident [id number].[id number] Not available 07/23/2022 04:43:44 Brother Abdominal aortic [...] dose or 50 mcg/0.25mL dose 2 completed Rmaa Brambila, [employer] [address] [facility], [place], [address], [facility] 09/21/2023 07:52:04 COVID-19, mRNA, LNP-S, PF, 100 mcg/0.5mL dose or 50 mcg/0.25mL dose 2 completed Rama Brambila APRN [address], [address], [place], [address], [facility] 09/21/2023 07:52:04 zoster recombinant 3 completed IS[address]ELLA [address], [place], [address], [facility] 09/21/2023 07:52:23 zoster recombinant 3 completed ROBERTO Arellano, [facility] 04/09/2023 09:20:36 COVID-19, mRNA, LNP-S, PF, jerardo-sucrose, 30 mcg/0.3 mL 3 completed Rama Brambila APRN [address], [address], [place], [address], [facility] 09/21/2023 07:52:23 COVID-19, mRNA, LNP-S, bivalent, PF, 50 mcg/0.5 mL or 25mcg/0.25 mL dose 2 completed Rama Brambila APRN [address], [address], [place], [address], [facility] 09/21/2023 07:52:04 zoster recombinant 3 completed Rama Brambila APRN [address], [address], [place], [address], [facility] 09/21/2023 07:52:23 COVID-19, mRNA, LNP-S, PF, jerardo-sucrose, 30 mcg/0.3 mL 3 completed Rama Brambila APRN [address], [address], [place], [address], [facility] 09/21/2023 07:52:23 Pneumococcal conjugate PCV20, polysaccharide RIP102 conjugate, adjuvant, PF 4 completed Cynthia Tony RMA null, [facility] 05/12/2024 09:43:45 RSV, bivalent, protein subunit RSVpreF, diluent reconstituted, 0.5 mL, PF 4 completed Cynthia Tony RMA null, [facility] 05/12/2024 09:43:45 COVID-19, mRNA, LNP-S, PF, jerardo-sucrose, 30 mcg/0.3 mL 4 completed Cynthia Tony RMA null, [facility] 05/12/2024 09:43:45 COVID-19, mRNA, LNP-S, PF, 100 mcg/0.5mL dose or 50 mcg/0.25mL dose 1 completed Rama Brambila APRN [address], [address], [place], [address], [facility] 09/21/2023 07:52:04 COVID-19, mRNA, LNP-S, PF, 100 mcg/0.5mL dose or 50 mcg/0.25mL dose 1 completed Rama Brambila APRN [address], [address], [place], [address], [facility] 09/21/2023 07:52:04 COVID-19, mRNA, LNP-S, PF, 100 mcg/0.5mL dose or 50 mcg/0.25mL dose 1 completed Rama Brambila APRN [address], [address], [place], [address], [facility] 09/21/2023 07:52:04 Influenza, high-dose, quadrivalent, PF 2 completed Not Available [facility] 03/20/2023 22:33:26 Influenza, high-dose, quadrivalent, PF 1 completed Navya Winston [facility] null, [facility] 01/08/2024 14:12:50 Influenza, high-dose, quadrivalent, PF 0 completed Not Available [facility] 03/20/2023 22:33:27 Influenza, high-dose, trivalent, PF 0 completed Not Available [facility] 03/20/2023 22:33:27 Influenza, high-dose, quadrivalent, PF 3 completed Abraham Jones MD [address], [address], [place], [address], [facility] 04/09/2023 11:28:51 Influenza, high-dose, trivalent, PF 4 completed Abraham Jones MD [address], [address], [place], [address], [facility] 05/13/2024 21:55:39 Past Encounters Encounter ID Performer Location Encounter Start Date Encounter Closed Date Diagnosis/Indication Diagnosis SNOMED-CT Code Diagnosis ICD10 Code Diagnosis Note [id number] [facility] Internal Med [facility] [address] [facility] [address] [place] [address] 10/16/2020 00:00:00 10/17/2020 14:55:56 [id number] [facility] Internal Med [facility] [address] [facility] [address] [place] [address] 12/06/2020 00:00:00 12/06/2020 12:02:49 [id number] [facility] Pod[facility] [place] [address] [facility] [address] [place] [address] 01/14/2021 00:00:00 01/15/2021 06:25:02 [id number] [facility] Internal Med [facility] [address] [place] [address] 02/21/2021 00:00:00 02/21/2021 18:00:52 [id number] [facility] Internal Med [facility] [address] [facility] [address] [place] [address] 04/16/2021 00:00:00 04/17/2021 10:31:35 [id number] [facility] Internal Med [facility] [address] [facility] [address] [place] [address] 04/30/2021 00:00:00 04/30/2021 15:04:53 [id number] [facility] Internal Med [facility] [address] [facility] [address] [place] [address] 2021 00:00:00 2021 13:00:56 [id number] [facility] Internal [facility] [place] [address] [facility] , [facility] [place] [address] 09/23/2021 00:00:00 09/23/2021 11:50:22 [id number] [facility] Ortho [place] [address] [facility] [address] [place] [address] 01/22/2022 00:00:00 01/22/2022 17:23:47 [id number] [facility] Internal Med [facility] [address] [facility] [address] 03/06/2022 00:00:00 03/06/2022 14:50:14 [id number] [facility] Internal Med [facility] [address] [facility] [address] 05/02/2022 00:00:00 05/02/2022 16:50:43 [id number] [facility] E[facility] [place] [address] [place] [address] 06/05/2022 00:00:00 06/05/2022 11:25:15 [id number] [facility] [place] [address] [place] [address] 07/10/2022 00:00:00 07/17/2022 09:12:11 [id number] [facility] [place] [address] [place] [address] 07/10/2022 00:00:00 07/10/2022 13:20:48 [id number] Alejandro Herring MD [facility] [place] [address] [address] 07/31/2022 08:57:31 07/31/2022 09:16:25 Urinary incontinence 154653131 R32 Patient doing wellfollow up in 4 weeks for pelvic [id number] Alejandro Herring MD [facility] [address] 1 08/28/2022 09:03:36 08/28/2022 09:31:15 Female stress incontinence 75481678 N39.3 Doing wellresume activities follow up in 6 momay need oab meds [id number] Abraham santana MD [facility] Internal Med [facility] [address] [facility], [place] [address] 09/09/2022 08:57:14 09/09/2022 09:23:37 Screening - NAD [id number] Z13.9 C-scope: C-scope: Dr Nabil fontaine in 10 years PAP: Seen by Adriana Chandler [employer] 02/15/19, 05/02/2022 Mammogram: 02/21/19: Neg,Mammog efrem: 03/13/2020 [...] her understand ing of the above Anxiety 27262207 F41.9 None today, feels that this occurs d/t her having to wear a mask d/t COVID, not suicidal or homicidalD eclines any referrals or medication s Hyperlipidemia 61472025 E78.5 Does not want any meds, understand s the risks for CVS and DIRECTOR OF OPERATIONS FOR THERAPY symptomsMo re diet and exercise Repeat the labs Chronic ki dney disease 275722216 N18.[address] Yesenia/p US kidney 03/08/2021 Type 2 nancy betes mellitus without complication 275593853 E11.9 Declines any medsGet Pop Whitaker 02/03/2020 , 02/26/2021 Dr Villatoro 01/14/2021 Hypoproteinemia 6302244 E88.09 Get a referral to Dr León again at this time, did see him in the pastShe is agreeable to do so, referral provided last OV also Dr León 12/30/2021 Hypothyroidism 36810458 E03.9 US 03/13/2020 : Chronic thyroiditi sOn levothyrox ine 75mcgs daily Does well Obesity 643632835 E66.9 Diet and exercise Gastroesop hageal reflux disease without esophagitis 863424657 K21.9 On pantaprozo leAdvised to take as neededDoes well on this Erythrocytosis 959681682 D75.1 CBC 09/04/2022 : WNL Pain of left wrist 00737 16362 66522 M25.532 S/p fracture, s/p trip and fallDr Figueroa 01/22/2022 Female str ess incontinence 36912615 N39.3 Dr Herring 07/10/2022 , seen for retention of urine, next OV 02/26/2023 [id number] Abraham santana MD [facility] Internal Med [facility] [address] [facility], [address] [place] [address] 01/06/2023 09:30:22 01/06/2023 10:27:15 Screening - NAD 800160384 Z13.9 C-scope: C-scope: Dr Ferrer next in 10 years PAP: Seen by Adriana Chandler [employer] 02/15/19, 05/02/2022 Mammogram: 02/21/19: Neg,Mammog efrem: 03/13/2020 : NegMammogr am: 03/14/2021 : NegMammogr am: 04/29/2022 : Neg DEXA: 02/21/19: NegDEXA: 06/25/2021 : Neg UTD on yearly flu shot 04/16/2021 Get TdapGet shingle vaccineGet PCV #13, and #23, does not want today 04/16/2021 UTD on COVID 19 vaccine RTC in 6 months as per her wishesGet labsER if worseShe did verbalize her understand ing of the above Anxiety 28036891 F41.9 None today, feels that this occurs d/t her having to wear a mask d/t COVID, not suicidal or homicidal Declines any referrals or medication s Hyperlipidemia 05313300 E78.5 Agreeable to start on a statin, will start on crestor 20mg daily 01/06/2023 More diet and exercise Repeat the labs Chronic ki dney disease 435259202 N18.[address] Patterson/p US kidney 03/08/2021 Type 2 nancy betes mellitus without complication 802169963 E11.9 Declines any medsGet Pop Whitaker 02/03/2020 , 02/26/2021 Dr Villatoro 01/14/2021 Hypoproteinemia 1510229 E88.09 Get a referral to Dr León again at this time, did see him in the pastShe is agreeable to do so, referral provided last OV also Dr León 12/30/2021 Hypothyroidism 79400028 E03.9 US 03/13/2020 : Chronic thyroiditi sOn levothyrox ine 75mcgs daily Does well Obesity 517166425 E66.9 Diet and exercise Gastroesop hageal reflux disease without esophagitis 645961238 K21.9 On pantaprozo leAdvised to take as neededDoes well on this Erythrocytosis 817154078 D75.1 CBC 09/04/2022 : WNL Refer to Dr León Pain of left wrist 42120 21119 25011 M25.532 S/p fracture, s/p trip and fallDr Figueroa 01/22/2022 Female str ess incontinence 15044845 N39.3 Dr Herring 07/10/2022 , seen for retention of urine, next OV 02/26/2023 Screening mammography 24 231880 Z12.31 Bilateral hearing loss 84106842 H91.93 Has noted some hearing loss, would like an audiologis t referral [id number] Giovanni Jin MD [facility] [address] [address] 01/08/2023 09:13:55 01/08/2023 10:19:01 Pain of left hand 3209868321 44646 M79.580 [id number] Mateo Hector DPM [facility] Podiatry [place] [address] [facility] [place] [address] 03/24/2023 13:49:43 03/24/2023 16:21:18 Impaired glucose tolerance 5287634 R73.03 Patient educated on neuropathy , diabetes, diabetic diet, and daily foot exams. Patient is to check feet daily for new wounds, blisters, redness to prevent infection and ulceration s to the feet. Patient will return to clinic in 3 months for diabetic foot workup. Congenital pes cavus 205 711910 Q66.70 continue custom orthotics and supportive shoe gearmonito r feet daily for wounds infection if present seek medical attention immediatel y Hammer toe 565409632 M20 .40 2 through 5 bilateralA s above [id number] Abraham santana MD [facility] Internal Med [facility] 15 [address] [facility], [facility] [address] [place] [address] 04/09/2023 09:04:33 04/09/2023 09:53:37 Screening - NAD 430259997 Z13.9 C-scope: C-scope: Dr Ferrer next in 10 years PAP: Seen by Adriana Chandler [employer] 02/15/19, 05/02/2022 Mammogram: 02/21/19: Neg,Mammog efrem: 03/13/2020 : NegMammogr am: 03/14/2021 : NegMammogr am: 04/29/2022 : Neg DEXA: 02/21/19: NegDEXA: 06/25/2021 : Neg UTD on yearly flu shot 04/16/2021 Get TdapGet shingle vaccineGet PCV #13, and #23, does not want today 04/16/2021 UTD on COVID 19 vaccineCan do RSV vaccine RTC in 6 months as per her wishesGet labsER if worseShe did verbalize her understand ing of the above Anxiety 59457945 F41.9 None today, feels that this occurs d/t her having to wear a mask d/t COVID, not suicidal or homicidal Declines any referrals or medication s Hyperlipidemia 50688605 E78.5 On crestor 20mg daily since 01/06/2023 More diet and exercise Repeat the labs Chronic ki dney disease 397527798 N18.[address] Patterson/alaina US kidney 03/08/2021 Does not want to see the nephrologi st Type 2 nancy betes mellitus without complication 988497933 E11.9 Declines any medsGet Pop Whitaker 02/03/2020 , 02/26/2021 Dr Villatoro 01/14/2021 Hypoproteinemia 7653101 E88.09 Get a referral to Dr León again at this time, did see him in the pastShe is agreeable to do so, referral provided last OV also Dr León 12/30/2021 Is to see him again, will discuss this with him, today did discuss with him 04/09/2023 Hypothyroidism 89144207 E03.9 US 03/13/2020 : Chronic thyroiditi sOn levothyrox ine 75mcgs daily Does well Obesity 655696724 E66.9 Diet and exercise Gastroesop hageal reflux disease without esophagitis 401165919 K21.9 On pantaprozo leAdvised to take as neededDoes well on this Erythrocytosis 157013755 D75.1 CBC 09/04/2022 : WNL Refer to Dr León Pain of left wrist 30894 61224 06076 M25.532 S/p fracture, s/p trip and fallDr Figueroa 01/22/2022 Female str ess incontinence 08090757 N39.3 Dr Herring 07/10/2022 , seen for retention of urine, next OV 02/26/2023 Screening mammography 24 743350 Z12.31 Bilateral hearing loss 99435633 H91.93 Has noted some hearing loss, would like an audiologis t referral Administra tion of influenza vaccine 59224499 Z23 [id number] Rama Brambila APRN [facility] Internal Med [place] [address] [place] [address] 07/21/2023 09:45:48 07/21/2023 10:17:07 Anxiety 43013870 F41.9 None today, feels that this occurs d/t her having to wear a mask d/t COVID, not suicidal or homicidal Declines any referrals or medication s Hyperlipidemia 52550656 E78.5 On crestor 20mg daily since 01/06/2023 More diet and exercise Repeat the labs Chronic ki dney disease 086550306 N18.[address] Patterson/p US kidney 03/08/2021 Does not want to see the nephrologi st Type 2 nancy betes mellitus without complication 137056244 E11.9 Declines any medsGet Pop Whitaker 02/03/2020 , 02/26/2021 Dr Villatoro 01/14/[address] León 12/30/2021 Is to see him again, will discuss this with him, today did discuss with him 04/09/2023 Hypothyroidism 76871358 E03.9 US 03/13/2020 : Chronic thyroiditi sOn levothyrox ine 75mcgs daily Does well Obesity 460916371 E66.9 Diet and exercise Gastroesop hageal reflux disease without esophagitis 705108403 K21.9 On pantaprozo leAdvised to take as neededDoes well on this Erythrocytosis 012848860 D75.1 CBC 09/04/2022 : WNL Refer to Dr León Pain of left wrist 73908 39508 07227 M25.532 S/p fracture, s/p trip and fallDr Figueroa 01/22/2022 Female str ess incontinence 91812120 N39.3 Dr Herring 07/10/2022 , seen for retention of urine, next OV 02/26/2023 Screening mammography 24 409939 Z12.31 Bilateral hearing loss 43278919 H91.93 Has noted some hearing loss, would like an audiologis t referral Administra tion of influenza vaccine 35550484 Z23 [id number] Abraham santana MD [facility] Internal [facility] [place] [address] [facility], [address] [place] [address] 11/12/2023 09:34:29 11/12/2023 10:36:40 Screening - NAD 561905356 Z13.9 C-scope: C-scope: Dr Ferrer next in 10 years PAP: Seen by Adriana Chandler [employer] HELPER 02/15/19, 05/02/2022 Mammogram: 02/21/19: Neg,Mammog efrem: 03/13/2020 : NegMammogr am: 03/14/2021 : NegMammogr am: 04/29/2022 : Neg DEXA: 02/21/19: NegDEXA: 06/25/2021 : Neg UTD on yearly flu shot 04/16/2021 Get TdapGet shingle vaccineGet PCV #13, and #23, does not want today 04/16/2021 UTD on COVID 19 vaccineCan do RSV vaccine RTC in 6 months as per her wishesGet labsER if worseShe did verbalize her understand ing of the above Anxiety 28955602 F41.9 None today, feels that this occurs d/t her having to wear a mask d/t COVID, not suicidal or homicidal Declines any referrals or medication s Hyperlipidemia 82070072 E78.5 On crestor 10mg dailyMore diet and exercise Repeat the labs Chronic ki dney disease 992608162 N18.[address] Patterson/p US kidney 03/08/2021 Does not want to see the nephrologi st Type 2 nancy betes mellitus without complication 435829313 E11.9 Declines any medsGet Pop Whitaker 02/03/2020 , 02/26/2021 Dr Villatoro 01/14/2021 Hypoproteinemia 8484903 E88.09 Get a referral to Dr León again at this time, did see him in the pastShe is agreeable to do so, referral provided last OV also Dr León 12/30/2021 Is to see him again, will discuss this with him, today did discuss with him 04/09/2023 Hypothyroidism 03123102 E03.9 US 03/13/2020 : Chronic thyroiditi sOn levothyrox ine 75mcgs daily Does well Obesity 156711484 E66.9 Diet and exercise Gastroesop hageal reflux disease without esophagitis 132644903 K21.9 On pantaprozo leAdvised to take as neededDoes well on this Erythrocytosis 640541437 D75.1 CBC 09/04/2022 : WNLCBC 11/06/2023 : WNL Pain of left wrist 30977 99198 58057 M25.532 S/p fracture, s/p trip and fallDr Figueroa 01/22/2022 Female str ess incontinence 92369825 N39.3 Dr Herring 07/10/2022 , seen for retention of urine, next OV 02/26/2023 Screening mammography 24 292832 Z12.31 Adult heal th examination 853534831 Z00.00 Screening for disorder 481501970 Z13.9 Screening for osteoporosis 956525972 Z13.820 Screening for cardiovascular system disease 436124450 Z13.6 States 11/12/2023 that her brother did have a bicuspid AV and AAA repaired, she denies any complaints herself, wants to get referred to cardiology , referred to Dr Burden [facility] Administra tion of pneumococcal vaccine 86418686 Z23 [id number] Bri Scruggs [facility] Internal Med [place] [address] [facility] 15 [place] [address] 01/08/2024 14:10:03 02/15/2024 16:23:40 Hyperlipidemia 55507374 E78.5 Hypothyroidism 56866039 E03.9 Anxiety 91248064 F41.9 [id number] Mateo Hector DPM [facility] Podiatry [place] [address] [facility] [place] [address] 04/18/2024 16:01:29 05/20/2024 13:14:37 Diabetes mellitus 06533170 E11.9 continue diabetic control per PCP recommenda tionCheck feet daily for wounds infectionR ecommend supportive shoe gear and insolesFol low-up in 2-3 months Hammer toe 073748248 M20 .40 2 through 5 bilateralc ontinue conservati ve therapymon itor for woundsreco mmend wide extend toe box shoe gear [id number] Abraham santana MD [facility] Internal Med [facility] [address] [facility], [facility] [address] [place] [address] 05/12/2024 09:29:52 05/12/2024 10:39:55 Screening - NAD 041740436 Z13.9 C-scope: C-scope: Dr Nabil fontaine in 10 years PAP: Seen by Adriana Chandler [employer] HELPER 02/15/19, 05/02/2022 Mammogram: 02/21/19: Neg,Mammog efrem: 03/13/2020 [...] her understand ing of the above Anxiety 70942311 F41.9 None today, feels that this occurs d/t her having to wear a mask d/t COVID, not suicidal or homicidal Declines any referrals or medication s Hyperlipidemia 28354484 E78.5 On crestor 10mg dailyMore diet and exercise Repeat the labs Chronic ki dney disease 580772839 N18.[address] Patterson/p US kidney 03/08/2021 Does not want to see the nephrologi st Type 2 nancy betes mellitus without complication 893842392 E11.9 Declines any medsGet Pop Whitaker 02/03/2020 , 02/26/2021 Dr Villatoro 01/14/[address] León in the past Hypothyroidism 67043364 E03.9 US 03/13/2020 : Chronic thyroiditi sOn levothyrox ine 75mcgs daily Does well Obesity 442464585 E66.9 Diet and exercise Gastroesop hageal reflux disease without esophagitis 976300944 K21.9 On pantaprozo leAdvised to take as neededDoes well on this Erythrocytosis 942651981 D75.1 CBC 09/04/2022 : WNLCBC 11/06/2023 : WNL Pain of left wrist 98468 47804 54072 M25.532 S/p fracture, s/p trip and fallDr Figueroa 01/22/2022 Female str ess incontinence 26852372 N39.3 Dr Herring 07/10/2022 , seen for retention of urine, next OV 02/26/2023 Screening for cardiovascular system disease 192234750 Z13.6 States 11/12/2023 that her brother did have a bicuspid AV and AAA repaired, she denies any complaints herself, wants to get referred to cardiology , referred to Dr Burden [facility] OV 05/12/[address] [facility] Burden 12/24/2023 ECHO 12/25/2023 UA AAA 01/19/2024 Pain of right wrist 3169 623221 87008 M25.531 Administra tion of influenza vaccine 44409711 Z23 Gynecologi c examination 79610771 Z01.307 [id number] Mateo Hector DPM [facility] Podiatry [place] [address] [facility] [place] [address] 06/21/2024 15:05:21 06/22/2024 16:43:42 Congenital pes cavus 138979207 Q66.70 continue custom orthotics and supportive shoe gearmonito r feet daily for wounds infection if present seek medical attention immediatel y Diabetes mellitus 825848 09 E11.9 continue diabetic control per PCP recommenda tionCheck feet daily for wounds infectionR ecommend supportive shoe gear and insolesFol low-up in 2-3 months Hammer toe 887511685 M20 .40 2 through 5 bilateralc ontinue conservati ve therapymon itor for woundsreco mmend wide extend toe box shoe gear [id number] Eliseo Gutierrez MD [facility] [address] 06/27/2024 09:12:24 06/27/2024 09:53:45 Pain of right wrist 2721469227 48166 M25.394 [id number] Marilou Rolon NP [facility] [address] [place] [address] 09/12/2024 10:38:53 09/12/2024 11:17:52 Pain of right wrist 6419361462 31649 M25.531 Health Concerns Section Related Observation LastModified by Organization Detai ls LastModified Time None Recorded Concern Status LastModified by Organization Details LastModified Time None Recorded Advance Directives Directive N: Payers Encounter Date Sequence Insurance Name Policy Number Policy Manzanares Covered Member ID Manzanares Member ID Guarantor Name 04/18/2024 1 [place] Conchita A Gehling [id number] Conchita A Gehling 04/18/2024 1 [employer] (MEDICARE SUPPLEMENT) Conchita Gehling [id number] Conchita A Gehling 05/12/2024 1 [place] Conchita A Gehling [id number] Conchita A Gehling 05/12/2024 1 [employer] (MEDICARE SUPPLEMENT) Conchita Gehling [id number] Conchita A Gehling 06/21/[address] [facility] (MEDICARE REPLACEMENT/A DVANTAGE - HMO) [id number] Conchita A Gehling [id number] Conchita A Gehling 06/27/[address] [facility] (MEDICARE REPLACEMENT/A DVANTAGE - HMO) [id number] Conchita A Gehling [id number] Conchita A Gehling 09/12/[address] [facility] (MEDICARE REPLACEMENT/A DVANTAGE - HMO) [id number] Conchita A Gehling [id number] Conchita A Gehling Notes Date Note Type [...] denies any other complaints. Mateo Hector DPM [address] [place] [address], [facility] [address], [place], [address], [facility] 05/05/2024 10:21:01 05/12/2024 text/html [...] 10/16/2020:Here for her routine aptShe is doing [place] did do the labsOV 12/06/2020:Here for her [...] did do the labs on 04/18/2024 Abraham Joens MD [address], [place], [address], [facility] 05/13/2024 21:59:53 06/21/2024 text/html . Patient is [...] Hector DPM [address], [place], [address], [facility] 06/21/2024 15:54:31 OBGyn Episode No OBEpisode recorded.
[2024-09-20 08:22] LABS: Basophils Absolute Auto 0.1 K/mm3 (0.0-0.1); Basophils Percent Auto 1.1 % (0.2-1.2); Eosinophils Absolute Auto 0.1 K/mm3 (0-0.3); Eosinophils Percent Auto 2.4 % (0-4.4); Hematocrit 44.1 % (37.0-47.0); Hemoglobin 15.2 g/dL (12.0-15.0); Immature Granulocyte Absolute 0.01 K/mm3 (0.00-0.031); Immature Granulocyte Percent A 0.2 % (0-0.5); Lymphocytes Percent Auto 39.3 % (18.3-44.2); Mean Corpuscular HGB Conc 34.5 g/dl (32-36); Mean Corpuscular Hemoglobin 31.1 pg (26-34); Mean Corpuscular Volume 90.2 fl (80-100); Mean Platelet Volume 9.2 fl (7.4-10.4); Monocytes Absolute Auto 0.4 K/mm3 (0.1-0.6); Monocytes Percent Auto 6.6 % (2.6-8.5); Neutrophils Absolute Auto 2.7 K/mm3 (1.3-6.7); Neutrophils Percent Auto 50.4 % (45.5-73.1); Platelet Count Result 248 k/mm3 (150-375); Red Blood Count 4.89 M/mm3 (4.2-5.4); Red Cell Distribution Width 12.3 % (11.5-14.5); White Blood Count 5.3 K/mm3 (4.5-10.0)
[2024-09-20 11:47] LABS: Alanine Aminotransferase 24 U/L (6-35); Albumin Level 4.3 g/dL (3.5-5.1); Alkaline Phosphatase 85 U/L (38-126); Anion Gap 8 mmol/L (4-12); Aspartate Amino Transferase 25 U/L (14-36); Bilirubin,Total 0.7 mg/dL (0.2-1.3); Blood Urea Nitrogen 20 mg/dL (7-17); Calcium 8.7 mg/dL (8.4-10.2); Carbon Dioxide 26 mmol/L (22-30); Chloride 108 mmol/L (98-107); Cholesterol 147 mg/dL (0-200); Estimated Glomerular Filt Rate > 60; Glucose 108 mg/dL (65-110); HDL Direct 54 mg/dL; Potassium 4.1 mmol/L (3.4-5.0); Sodium 142 mmol/L (137-145); Triglycerides 98 mg/dL (<150)
[2024-09-20 11:58] LABS: LDL Cholesterol Direct 57 mg/dL
[2024-09-20 12:03] LABS: Free T4 Free Thyroxine 1.37 ng/dL (0.78-2.19)
[2024-09-20 13:13] LABS: Creatinine Urine 107.9 mg/dL
[2024-09-20 13:17] LABS: MALB Creatinine Ratio 8.2 mg/g (0-30); Microalbumin Urine Random 8.8 mg/L (0-16.7)
== END 2024-09-20 08:03 | disposition home or self-care (01) ==
LOC: ANHLAB 08:03
PROVIDERS: PCP Internal Medicine; Visit Provider Internal Medicine
DX: E78.9 Disorder of lipoprotein metabolism, unspecified (principal); E11.9 Type 2 diabetes mellitus without complications
CPT/HCPCS: 36415; 80053; 80061; 82043; 83036; 84439; 84443; 85025

== ENCOUNTER 2024-12-21 09:16 | Outpatient (CLI) | payer MEDICARE, SELFPAY ==
[2024-12-21 09:32] LABS: Hematocrit 44.6 % (37.0-47.0); Hemoglobin 15.1 g/dL (12.0-15.0); Immature Granulocyte Percent A 0.2 % (0-0.5); Lymphocytes Absolute Auto 1.41 K/mm3 (0.9-3.2); Mean Corpuscular HGB Conc 33.9 g/dl (32-36); Mean Corpuscular Hemoglobin 30.7 pg (26-34); Mean Corpuscular Volume 90.7 fl (80-100); Nucleated Red Blood Cells Absolute Auto 0.000 K/mm3 (0.0-0.012); Nucleated Red Blood Cells Perc 0.0 % (0.0-0.2); Platelet Count Result 237 k/mm3 (150-375); Red Blood Count 4.92 M/mm3 (4.2-5.4); White Blood Count 4.2 K/mm3 (4.5-10.0)
--- OUTSIDE RECORDS SUMMARY | 2024-12-21 09:34 | XMS_ITS | Clinical Summary ---
Author Organization [facility] Mitra kimbrough [facility] Address [address] [place] [address] Care Team Providers Care Ventilating Engineer Name Role Phone Abraham Jones MD Primary Care Provider Allergies Active Allergy Reactions Criticality Noted Date Comments Phenytoin Sodium Extended Rash High 07/28/2019 Medications levothyroxine 75 mcg tablet levothyroxine 75 mcg tablet Active fluticasone propionate (FLONASE) 50 mcg/spray Tebbetts, Suspension nasal inhaler fluticasone propionate 50 mcg/actuation [...] Encounters Date Type Department Care Team Description 12/07/2024 External Device Data [facility] ABSTRACTION Provider, Abstract 12/06/2024 External Device Data [facility] Provider, Abstract 11/15/2024 External Device Data [facility] Provider, Abstract 11/08/2024 External Device Data [facility] [place] Provider, Abstract 10/18/2024 External Device Data [facility] [place]STRACTION Provider, Abstract 10/13/2024 External Device Data [facility] [place]STRACTION Provider, Abstract 10/12/2024 External Device Data [facility]STRACTION Provider, Abstract 10/11/2024 External Device Data [facility]STRACTION Provider, Abstract [...] on file Legal Sex Female 9:46 AM [employer] Gender Identity Not on file Sexual Orientation Not on file Last Filed Vital Signs Vital Sign Reading Time Taken Comments Blood Pressure 139/90 07/15/2024 8:35 AM [employer] Pulse 73 07/15/2024 8:35 AM [employer] Temperature 37.1 C (98.8 F) 07/15/2024 8:35 AM [employer] Respiratory Rate 15 07/15/2024 8:35 AM [employer] Oxygen Saturation 96% 07/15/2024 8:35 AM [employer] Inhaled Oxygen Concentration - - Weight 80.3 kg (177 lb) 07/15/2024 8:35 AM [employer] Height 162.6 cm (5' 4) 12/30/2021 10:03 AM CDT Body Mass Index 30.38 12/30/2021 10:03 AM CDT Plan of Treatment Upcoming Encounters Date Type Department Care Team (Late st Contact Info) Description 12/30/2024 9:00 AM CDT Office Visit [facility] - [place] [address] [facility] [address] [place] [address] Dane León MD [address] [facility] [address] [place] [address] Health Maintenance Due Date Last [...] MONTHS 09/19/20232022, 01/01/2023, 09/04/2022, Additional history exists [place] ([place]) Preventative Visit/Annual Wellness Visit 05/25/2024 11/12/2023 COVID-19 Vaccine (8 - Modern a risk season) 2024 04/01/2024, 03/16/2023, 03/06/2022, Additional history exists INFLUENZA VACCINE (#1) 2024 4, 04/09/2023, 03/06/2022, Additional history exists BREAST CANCER SCREENING 05/09/2025 05/09/20 24, 05/09/2024, 05/06/2023, Additional history exists COLORECTAL SCREENING 04/26/2029 04/26/2019, 04/26/2019, 04/26/2019, Additional history exists Colorectal Cancer Screening 04/26/2029 OSTEOPOROSIS SCREENING 05/09/2029 4, 06/25/2021, 02/21/2019 ZOSTER VACCINE Completed 03/16/2023, 02/23, 01/12/2023 PNEUMOCOCCAL VACCINE 50+ YEARS Completed 11/12/2023 [id number] [id number] Care Teams Ventilating Engineer Relationship Specialty Start Date End Date Abraham Jones MD PCP - General Internal Medicine 06/02/19
--- OUTSIDE RECORDS SUMMARY | 2024-12-21 09:34 | XMS_ITS | Clinical Summary ---
Author Organization [facility] Facility Address [address] [address] Care Team Providers Care Internet Webmaster Name Role Phone Abraham Jones MD Primary Care Provider [phone] Medications cyanocobalamin (VITAMIN B-12) 1000 MCG tablet [...] Comments Blood Pressure 130/80 04/26/2024 12:55 PM MUSEUM SERVICE SCHEDULER Pulse 78 04/26/2024 12:55 PM MUSEUM SERVICE SCHEDULER Temperature 36.7 C (98 F) 04/26/2024 12:55 PM MUSEUM SERVICE SCHEDULER Respiratory Rate 18 04/26/2024 12:55 PM MUSEUM SERVICE SCHEDULER Oxygen Saturation 99% 04/26/2024 12:55 PM MUSEUM SERVICE SCHEDULER Inhaled Oxygen Concentration - - Weight 80.3 kg (177 lb 1.6 oz) 04/26/2024 12:55 PM MUSEUM SERVICE SCHEDULER Height 162.6 cm (5' 4) 04/15/2022 12:35 PM MUSEUM SERVICE SCHEDULER Body Mass Index 30.4 04/15/2022 12:35 PM MUSEUM SERVICE SCHEDULER Plan of Treatment Upcoming Encounters Date Type Department Care Team (Late st Contact Info) Description 05/02/2025 12:30 PM MUSEUM SERVICE SCHEDULER Office [facility], [facility] [address] [facility] [address] [place] [address] El Lindquist DO [address] [...] Diabetes: Visual Foot Exam 04/06/2023 Influenza Vaccine (#1) 2025 , 04/17/2020, 06/02/2019 Hepatitis B Vaccine Aged Out No longe r eligible based on patient's age to complete this topic Insurance Medicare [facility] Care Teams Internet Webmaster Relationship Specialty Start Date End Date Abraham Jones MD [address] [facility], [address] [place] [address] PCP - General Internal Medicine 04/21/23
--- OUTSIDE RECORDS SUMMARY | 2024-12-21 09:34 | XMS_ITS | Clinical Summary ---
Author Organization [facility] Address [address] [place] [address] Phone Care Team Providers Care Architectural Examiner Name Role Phone Abraham Jones MD Primary [...] Comments Blood Pressure 122/72 07/05/2020 1:55 PM BUSSER Pulse 86 07/05/2020 1:55 PM BUSSER Temperature 37.3 C (99.2 F) 07/05/2020 1:55 PM BUSSER Respiratory Rate 18 07/05/2020 1:55 PM BUSSER Oxygen Saturation 96% 07/05/2020 1:55 PM BUSSER Inhaled Oxygen Concentration - - Weight 84.4 kg (186 lb) 07/05/2020 1:55 PM BUSSER Height 162.6 cm (5' 4) 07/05/2020 1:55 PM BUSSER Body Mass Index 31.93 07/05/2020 1:55 PM BUSSER Plan of Treatment Health Maintenance Due Date Last Done Comments Hepatitis C Virus (HCV) Screening 1950 TdaP Immunization 1950 Cologuard 09/02/1996 Colonoscopy 09/02/1996 Colorectal Cancer Screening 09/02/1996 Immunochemical Fecal Occult Blood 09/02/1996 Pneumococcal Immunization (50+ years) (1 of 1 - PCV) 09/02/2001 Zoster Immunization (1 of 2) 09/02/2001 SARS-COV-2 Immunization ( season) 2024 03/06/2022, 11/19/2021, 03/21/2021, Additional history exists Influenza Immunization (#1) 2025 112 07/2020, 04/17/2020, 06/02/2019 Respiratory Syncytial Virus (RSV) Immunization (Adult) (1 - 1-dose 75+ series) 09/02/2026 Hepatitis B Immunization Aged Out No longer eligible based on patient's age to complete this topic Human Papillomavirus (HPV) Immunization Aged Out No longer eligible based on patient's age to complete this topic Meningococcal Immunization (ACWY) Aged Out No longer eligible based on patient's age to complete this topic Rotavirus Immunization Aged Out No lo nger eligible based on patient's age to complete this topic Insurance MEDICARE [facility] [employer] Care Teams Architectural Examiner Relationship Specialty Start Date End Date Abraham Jones MD [address] [place] [address] [place] [id number] PCP - General Internal Medicine 06/07/20
[2024-12-21 11:04] LABS: Alanine Aminotransferase 24 U/L (6-35); Albumin Level 4.3 g/dL (3.5-5.1); Alkaline Phosphatase 77 U/L (38-126); Anion Gap 6 mmol/L (4-12); Aspartate Amino Transferase 28 U/L (14-36); Bilirubin,Total 0.5 mg/dL (0.2-1.3); Blood Urea Nitrogen 18 mg/dL (7-17); Calcium 9.1 mg/dL (8.4-10.2); Carbon Dioxide 28 mmol/L (22-30); Chloride 106 mmol/L (98-107); Estimated Glomerular Filt Rate 53; Glucose 100 mg/dL (65-110); Potassium 3.9 mmol/L (3.4-5.0); Sodium 140 mmol/L (137-145); Total Protein 6.7 g/dL (6.3-8.2)
[2024-12-21 11:22] LABS: Immunoglobulin A 52 mg/dL (70-400); Immunoglobulin G 559 mg/dL (700-1600); Immunoglobulin M 61 mg/dL (40-230)
[2024-12-22 15:09] LABS: Albumin 3.8 g/dL (2.9-4.4); Alpha-1-Globulin 0.2 g/dL (0.0-0.4); Alpha-2-Globulin 0.6 g/dL (0.4-1.0); Gamma Globulin 0.5 g/dL (0.4-1.8)
== END 2024-12-21 09:17 | disposition home or self-care (01) ==
PROVIDERS: PCP Internal Medicine; Visit Provider Internal Medicine Hematology & Oncology
DX: D80.9 Immunodeficiency with predominantly antibody defects, unspecified (principal)
CPT/HCPCS: 36415; 80053; 82784; 84155; 84165; 85025

== ENCOUNTER 2025-04-07 08:23 | Outpatient (CLI) | payer MEDICARE, SELFPAY ==
--- OUTSIDE RECORDS SUMMARY | 2025-04-07 08:39 | XMS_ITS | Clinical Summary ---
Author Organization [facility] [address] [facility] Address [address] [place] [address] Care Team Providers Care Plate Mounter Name Role Phone Jamaal Jones MD Primary Care Provide r Allergies Active Allergy Reactions Criticality Noted Date Comments Phenytoin Rash High 07/28/2019 Medications levothyroxine (SYNTHROID) 75 mcg tablet Take 1 tablet (75 mcg total) by mouth career technical supervisor before breakfast Active rosuvastatin (CRESTOR) 10 mg tablet Take 1 tablet (10 mg total) by mouth every morning Active cholecalciferol (Vitamin D3) 1,000 unit capsule Take 1 capsule (1,000 Units total) by mouth daily Active fluticasone propionate (FLONASE) 50 mcg/actuation nasal spray Administer 1 spray into each nostril daily as needed for rhinitis Active HYDROcodone-london taminophen (NORCO) 5-325 mg per tabletIndicatio ns:Pain Take 1-2 tablets by mouth every 4 (four) hours as needed for pain for up to 30 doses 20 tablet Active Additional Information Patient not taking.Reported on 02/06/2025 docusate sodium (COLACE) 100 mg capsuleIndicati ons:constipatio n Take 1 capsule (100 mg total) by mouth 2 (two) times a day For constipation. 40 capsule Active Additional Information Patient not taking.Reported on 02/06/2025 Active Problems Problem Noted Date Diagnosed Date Uterine prolapse 01/17/2025 Osteoarthritis 01/04/2025 Overactive bladder 01/04/2025 Sensory urge incontinence 01/04/2025 Uterus prolapse 12/28/2024 Anxiety 09/08/2022 Chronic kidney disease 09/08/2022 Gastroesophageal reflux disease without esophagi tis 09/08/2022 Hyperlipidemia 09/08/2022 Female stress incontinence 08/28/2022 Encounters Date Type Department Care Team Description 02/09/2025 Results [facility] [address] [facility] [address] [place] [phone] Mike Leonardo MD Urine culture Urine, bladder 02/07/2025 Telephone [facility] [address] [facility] [address] [address] No Jeffries RN 02/06/2025 1:45 PM CDT Office Visit [facility] [address] [facility] [address] [place] [phone] Mike Leonardo MD UTI symptoms (Primary Dx); Postop check 01/17/2025 7:33 AM CDT Anesthesia Event [facility] Operating Room [address] [place] [phone] Sean Echavarria DO Lougeay, Kelly 01/17/2025 7:30 AM CDT - 01/17/2025 11:00 AM CDT Surgery [facility] Operating Room [address] [place] [phone] Shahab Shore MD Robotic Assisted Sacrocolpopexy 01/17/2025 5:40 AM CDT - 01/18/2025 1:42 PM CDT Hospital Encounter [address] [phone] Shahab Shore MD Uterus prolapse Discharge Disposition: Discharge to home or self care 01/08/2025 Results Follow[facility] [address] [facility] [address] [place] [phone] Mike Leonardo MD IGP, Apt HPV,rfx 16/18,45 from Last 3 Months Surgical History Surgery Date Site/Laterality Comments THYROIDECTOMY 05/25/1981 - 05/24/1982 BLADDER SUSPENSION 05/25/2021 - 05/24/2022 REPLACEMENT TOTAL KNEE 05/25/2017 - 05/24/2018 Right HYSTERECTOMY 01/17/2025 RALSH/BSO Medical History Medical History Date Comments Uterus prolapse History of thyroidectomy 1981 Thyroid disease Family History Medical History Relation Name Comments Breast cancer Maternal Grandmother Relation Name Status Comments Maternal Grandmother Social History Tobacco Use Types Packs/Day Years Used Date Smoking Tobacco: Former Cigarettes Tobacco Cessation:Counseling Given: Not Answered Alcohol Use Standard Drinks/Week Comments Never 0 (1 standard drink = 0.6 oz pur e alcohol) AUDIT-C Answer Date Recorded Q1: How often do you have a drink containing alcohol? Never 02/06/2025 Q2: How many drinks containi ng alcohol do you have on a typical day when you are drinking? Patient does not drink Q3: How often do you have si x or more drinks on one occasion? Never 02/06/2025 Personal Safety Answer Date Recorded Have you ever been in or are you currently in a harmful physical or emotional relationship or is someone making you feel afraid or unsafe? Denies 01/17/2025 Comments No Sex and Gender Information Value Date Recorded Sex Assigned at Not on file Legal Sex Female 3:26 PM CDT Gender Identity Not on file Sexual Orientation Not on file Obstetrics History Para Term AB IAB SAB Ectopic Multiple Livin g Live Births 0 0 0 0 0 0 0 0 0 0 0 Last Filed Vital Signs Vital Sign Reading Time Taken Comments Blood Pressure 137/67 01/18/2025 12:03 PM CDT Pulse 70 01/18/2025 12:03 PM CDT Temperature 36.9 C (98.4 F) 01/18/2025 12:03 PM CDT Respiratory Rate 16 01/18/2025 12:03 PM CDT Oxygen Saturation 98% 01/18/2025 12:03 PM CDT Inhaled Oxygen Concentration - - Weight 80.8 kg (178 lb 2.1 oz) 01/17/2025 7:03 A M CDT Height 162.6 cm (5' 4) 01/17/2025 7:03 AM CDT Body Mass Index 30.58 01/17/2025 7:03 AM CDT Plan of Treatment Health Maintenance Due Date Last Done Comments Breast Cancer Screening-Mammogram 1950 Colon Cancer Screening-Colonoscopy 1950 Depression Screening 1950 Hepatitis C Screening 1950 Osteoporosis Screening-Bone Density Scan 1950 DTaP/Tdap/Td Vaccine (1 - Tdap) 09/02/1962 Hepatitis B Screening 09/02/1969 Well Visit 65+ 09/02/2016 Covid-19 Vaccine (2024- 6 season) 2025 04/01/2024, 03/13/2023, 03/06/2022, Additional history exists Influenza Vaccine (#1) 2025 , 04/09/2023, 03/06/2022, Additional history exists Fall Risk Assessment 01/18/2026 01/18/2025 Zoster Vaccine Completed 03/16/2023, 02/23, 01/12/2023 Pneumococcal vaccine 65+ Completed 11/12/2023 Medical Devices Implanted Type Area Court Monitor Device Identifier Shelf Expiration Date Model / Serial / Lot [employer] Estuardo Upsylon 35.4cm Elongation Profile Lightweight Large Pore Low [id number] - [id number] Implanted:Qty: 1 on 01/17/2025 by Shahab Shore MD at [facility] Mesh N/A: [place] [employer] Estuardo [id number] 08/18/2027 [id number] / / [id number] Procedures Procedure Name Priority Date/Time Associated Diagnosis Comments POCT URINALYSIS DIPSTICK Routine 02/06/2025 2:56 PM CDT UTI symptoms URINE CULTURE Routine 02/06/2025 2:54 PM CDT Postop check UTI symptoms SURGICAL PATHOLOGY Routine 01/17/2025 10 :08 AM CDT Uterus prolapse FL AN PROCEDURE PLACEHOLDER Routine 01/17/2025 8:45 AM CDT FL AN PROCEDURE PLACEHOLDER Routine 01/17/2025 8:28 AM CDT FL AN ELECTIVE ENDOTRACHEAL AIRWAY Routine 01/17/2025 8:28 AM CDT SUPRACERVICAL HYSTERECTOMY - ROBOTIC ASSISTED 01/17/2025 7:33 AM CDT Uterus prolapse XI SACRALCOLPOPEXY - ROBOTIC ASSISTED 01/17/2025 7:33 AM CDT Uterus prolapse B CHECK SAMPLE STAT 01/17/2025 6:28 AM CDT from Last 3 Months Results * (ABNORMAL) POCT urinalysis dipstick (02/06/2025 2:56 PM CDT) Color, Urine, POC Yellow Clarity, ur, POC Clear Clear Glucose, ur, POC Negative Negative Bilirubin, ur, POC Negative Negative Ketones, ur, POC Negative Negative Specific [place], POC 1.015 1.003 - 1.030 Blood, ur, POC 1+(A) Negative pH, ur, POC 6.0 5.0 - 8.0 Protein, ur, POC Negative Negative Urobilinogen, urine, POC 0.2 0.2 - 1.0 mg/dL Nitrite, ur, POC Positive(A) Negative Leukocytes, ur, POC 2+(A) Negative Lot Number [id number] Comment:Exp: 12/22/26 Urine 02/06/2025 2:56 PM CDT Mike Leonardo MD POINT OF CARE TEST ORDERA BLES Final Result * (ABNORMAL) Urine culture Urine, bladder (02/06/2025 2:54 PM CDT) Urine culture (A) ROBAUTODorinda Call Comment: CULTURE, URINE, ROUTINE Micro Number: [id number] Test Status: Final Specimen Source: Urine, clean catch Specimen Quality: Adequate Result: Greater than 100,000 CFU/mL of Escherichia coli E.coli INT [place] AMOX/CLAVULANATE S 4 AMP/SULBACTAM S 4 CEFAZOLIN I 4 CEFEPIME S <=0.12 CEFTAZIDIME S <=0.5 CEFTRIAXONE S <=0.25 CIPROFLOXACIN S <=0.06 GENTAMICIN S <=1 IMIPENEM S <=0.25 LEVOFLOXACIN S <=0.12 MEROPENEM S <=0.25 NITROFURANTOIN S <=16 PIP/TAZOBACTAM S <=4 TRIMETHOPRIM/SULFA S <=20 S = Susceptible I = Intermediate R = Resistant NS = Not susceptible SDD = Susceptible Dose Dependent * = Not Tested NR = Not Reported NN = See Therapy Comments Urine, bladder 02/06/2025 2: 54 PM CDT 02/06/2025 2:54 PM CDT Mike Leonardo MD LAB MICROBIOLOGY - GENERA L ORDERABLES Final Result Performing Organization Address [facility]/State/[facility] Co de Phone Number [facility] [address] [place] [address] * Surgical pathology (01/17/2025 10:08 AM CDT) Tissue (Uterus with/without tubes & ovaries, Non-neoplastic) 01/17/2025 10:08 AM CDT Comment:Placed in formalin f ollowing surgery Narrative PATHOLOGY [facility] - 01/20/2025 10:13 AM CDT [address] [address] Tele: Brittany Gillespie MD - Space Planner Note to Patients: This report may contain a detailed description of human tissue sent by a health care provider to the laboratory for pathologic evaluation. The content of this report is essential for diagnosis and may provide important critical findings. This information may be unfamiliar to patients to review without a medical professional present. It is advised that the patient review this report in the presence of a health care provider who can answer questions and explain the details. SURGICAL PATHOLOGY REPORT Patient Name: CONCHITA MCMAHAN Address: [address] [place] [address] Gender: F : 1950 (Age: 74) Service: Surgery Location: [place] [address], Hospital #: [id number] Patient Type: [facility] OP IN BED Taken: 01/17/2025 Received 01/17/2025 Reported: 01/20/2025 Physician(s): Lyn Cain MD DIAGNOSIS: Uterus, ovaries, fallopian tubes; robotic assisted supracervical hysterectomy and bilateral salpingo-oophorectomy: - Endometrium: - Inactive type endometrium with tubal metaplasia - No endometrial hyperplasia or malignancy identified - Myometrium: - Leiomyomas, 0.3 cm (largest) - Adenomyosis focal - Serosa: - No histopathologic abnormality - Ovaries, bilateral: - Benign cortical inclusion cyst - Fallopian tubes, bilateral: - Benign Walthard nests as/01/20/2025 09:37 Examining Pathologist: Adán Russell M.D. Report Reviewed and Electronically Signed By Adán Russell M.D. SPECIMEN TYPE: A: UTERUS, BILATERAL TUBES & OVARIES CLINICAL IMPRESSION AND HISTORY: Uterus prolapse GROSS DESCRIPTION: Received in formalin labeled CONCHITA MCMAHAN and uterus, bilateral tubes & ovaries is a 25 g, 4.5 x 3.5 x 2.5 cm uterus with an attached 4.5 cm in length and 0.3 cm in diameter right fimbriated fallopian tube, attached 2 x 1 x 0.6 cm right ovary, attached 4 cm in length and 0.3 cm in diameter left fimbriated fallopian tube, and attached 1.5 x 1 x 0.4 cm left ovary. No ectocervix is identified. The external surface of the uterus has a 0.6 cm in greatest dimension area of disruption. The uterus is bivalved to show a 1 cm probable endocervical canal that is grossly unremarkable. The 2 x 0.6 cm endometrial cavity is lined by tyler unremarkable endometrium with a maximum thickness of 0.2 cm. There are two intramural and subserosal white-tyler whorled firm nodules, 0.2 and 0.3 cm in greatest dimension. The external surface of both fallopian tubes are smooth. Both fallopian tubes are sectioned to show an unremarkable lumen. The external surface of both ovaries are smooth. The right ovary is bivalved to show a 0.9 cm in greatest dimension smooth-walled simple cyst contains clear tyler fluid and has a maximum wall thickness of 0.2 cm. The remainder of the cut surfaces of both ovaries are pale tyler, firm, and unremarkable. Kinder Teacher sections are submitted as follows: A1 - Area of anterior cervix A2 - Area posterior cervix A3 - Anterior endomyometrium A4 - Posterior endomyometrium A5 - Both the entire white-tyler whorled nodules A6 - Right fallopian tube and right ovary A7 - Left fallopian tube and left ovary. jxi/01/17/2025 13:08 ,WANDA MICROSCOPIC DESCRIPTION: Microscopic examination supports the above captioned diagnosis. Clerical Data Follows A; 10965 REPORT IMAGES AND/OR SCANNED DOCUMENTS ONLY VIEWABLE IN PDF FORMAT The immunohistochemical test(s) cited in this report, if any, was developed and its performance characteristics determined by [facility] Pathology Department. It has not been cleared or approved by the U.S. Food and Drug Administration. The FDA has determined that such clearance or approval is not necessary. This test is used for clinical purposes. It should not be regarded as investigational or for research. [facility] Laboratory is certified under the Clinical Laboratory Improvement Amendments of 1988 (CLIA) as qualified to perform high complexity testing. Immunostains were performed on formalin-fixed paraffin embedded tissue using a polymer diaminobenzidine chromogen detection system. Antibodies used may include clone SP1 (rabbit monoclonal, estrogen receptor), clone 1E2 (rabbit monoclonal progesterone receptor), Ki-67 (rabbit monoclonal, 30-9), CD117 (rabbit polyclonal, c-kit), and anti-Her-2/elmer (4B5) (rabbit monoclonal primary antibody). In the event that immunohistochemistry or special stains have been performed, attending physician has confirmed appropriateness of controls. Frozen section, operating room consultation, gross examination and dissection, and case sign out may have been performed in part or completely in the following laboratories: [facility], [address] [facility], [address], [address] [place] [address], [place] [address]. us Shahab Shore MD LAB PATHOLOGY ORDERABLE S Final Result PATHOLOGY [facility] Laboratory Receiving [address] [place], [place] [id number] * FL AN PROCEDURE PLACEHOLDER (01/17/2025 8:45 AM CDT) Linda Bentley CRNA - 01/17/2025 8:45 AM CDT Linda White CRNA 01/17/2025 8:46 AM Peripheral IV Catheter Patient location: OR End time: 01/17/2025 7:45 AM Staff: Placed by: JUAN: Linda White CRNA Preprocedure prep: Prep solution: chlorhexadine PPE: gloves and provider hat/mask PIV line: Laterality: right Site: wrist Catheter size: 20 g Technique: anatomical landmarks, direct visualization and palpatation Procedure details: good blood return and occlusive dressing applied Number of attempts: 1 Assessment: Events: patient tolerated procedure well with no complications Sean Echavarria DO ANESTHESIA ORDERABLES Final R esult * FL AN ELECTIVE ENDOTRACHEAL AIRWAY, FL AN PROCEDURE PLACEHOLDER (01/17/2025 8:28 AM CDT) Linda Bentley CRNA - 01/17/2025 8:28 AM CDT Linda White CRNA 01/17/2025 8:45 AM Airway Patient location: OR Urgency: elective Date/time: 01/17/2025 7:46 AM Indications for airway management: anesthesia Difficult airway: no Staff: Placed by: JUAN: Linda White CRNA Emergent airway documentation: Risks and benefits discussed: yes Consent obtained: yes Consent given by: patient Airway prep: Preoxygenated: yes Patient position: sniffing Mask difficulty assessment: 2 - vent by mask + OA or adjuvant Spontaneous ventilation during airway: absent Sedation level during airway: GA Final airway details: Final airway type: endotracheal airway Tube type: ETT ETT size: 7.0 mm Cuffed: yes Technique used for successful ETT placement: direct laryngoscopy Devices/Methods used in placement: stylet Insertion site: oral Blade type: Daya Blade size: 3 Cormack-Lehane (direct): grade I - full view of glottis Cuff volume: 7 mL Cuff inflated with: air ETT to lips: 22 cm Placement verified by: auscultation and CO2 detection Airway secured with: silk tape Number of attempts: 2 Ventilation between attempts: BVM Additional comments: 1st attempt SRNA unsuccessful. 2nd attempt successful. us Sean Echavarria DO ANESTHESIA ORDERABLES Edited Result - Final * Check Sample (01/17/2025 6:28 AM CDT) ABO Rh O Positive MBC HCLL OTHER 01/17/2025 6:28 AM CDT 01/17/2025 7:01 AM CDT us Namita Marino ANTHROPOLOGIST LAB BLOOD ORDERABLES Fi nal Result [facility] [address] [place] [address] MBC from Last 3 Months Insurance [facility] MEDICARE ADVANTAGE Advance Directives For more information, please contact: [phone] * Full Code (Latest Code Status on File) Date Activated Date Inactivated Comments 01/17/2025 11:46 AM 01/18/2025 5:43 PM Care Teams Plate Mounter Relationship Specialty Start Date End Date Jamaal Jones MD [address] [place] [address] PCP - General Internal Medicine 12/27/24
--- OUTSIDE RECORDS SUMMARY | 2025-04-07 08:39 | XMS_ITS | Encounter Summary ---
Author Organization [facility] Address [address] [facility] [address], [place] [address] Care Team Providers Care Wireless Operator Name Role Phone Jamaal Jones MD Primary Care Provide r Encounter Details Date Type Department Care Team (Late st Contact Info) Description 02/09/2025 Results [facility] [address] [facility] Medical Office [address] [place] [address] Mike Leonardo MD [address] [facility] [address] [place] [address] Urine culture Urine, bladder Social History Tobacco Use Types Packs/Day Years Used Date Smoking Tobacco: Former Cigarettes Alcohol Use Standard Drinks/Week Comments Never 0 [...] on file documented as of this encounter Plan of Treatment Not on file documented as of this encounter Visit Diagnoses Not on filedocumented in this encounter Care Teams Wireless Operator Relationship Specialty Start Date End Date Jamaal Jones MD [address] [place] [address] PCP - General Internal Medicine 12/27/24 documented as of this encounter
--- OUTSIDE RECORDS SUMMARY | 2025-04-07 08:39 | XMS_ITS | Clinical Summary ---
Author Organization [facility] Address [address] [address] Care Team Providers Care Banquet Set Up Person Name Role Phone Abraham Jones MD Primary Care Provider [phone] Medications cyanocobalamin (VITAMIN B-12) 1000 MCG tablet [...] Comments Blood Pressure 130/80 04/26/2024 12:55 PM [facility] Pulse 78 04/26/2024 12:55 PM [facility] Temperature 36.7 C (98 F) 04/26/2024 12:55 PM [facility] Respiratory Rate 18 04/26/2024 12:55 PM [facility] Oxygen Saturation 99% 04/26/2024 12:55 PM [facility] Inhaled Oxygen Concentration - - Weight 80.3 kg (177 lb 1.6 oz) 04/26/2024 12:55 PM [facility] Height 162.6 cm (5' 4) 04/15/2022 12:35 PM [facility] Body Mass Index 30.4 04/15/2022 12:35 PM [facility] Plan of Treatment Upcoming Encounters Date Type Department Care Team (Late st Contact Info) Description 05/02/2025 12:30 PM [facility] Office Visit [facility] [address] [facility] [address] [place] [address] El Lindquist DO [address] [...] age to complete this topic Insurance Medicare [facility] Care Teams Banquet Set Up Person Relationship Specialty Start Date End Date Abraham Jones MD [address] [facility], [address] [place] [address] PCP - General Internal Medicine 04/21/23
--- OUTSIDE RECORDS SUMMARY | 2025-04-07 08:39 | XMS_ITS | Clinical Summary ---
Author Organization [facility] Address [address] [place] [address] Phone Care Team Providers Care Shot Core Drill Operator Helper Name Role Phone Abraham Jonse MD Primary Care Provider Allergies No known [...] Comments Blood Pressure 122/72 07/05/2020 1:55 PM CAP PARTS CUTTER Pulse 86 07/05/2020 1:55 PM CAP PARTS CUTTER Temperature 37.3 C (99.2 F) 07/05/2020 1:55 PM CAP PARTS CUTTER Respiratory Rate 18 07/05/2020 1:55 PM CAP PARTS CUTTER Oxygen Saturation 96% 07/05/2020 1:55 PM CAP PARTS CUTTER Inhaled Oxygen Concentration - - Weight 84.4 kg (186 lb) 07/05/2020 1:55 PM CAP PARTS CUTTER Height 162.6 cm (5' 4) 07/05/2020 1:55 PM CAP PARTS CUTTER Body Mass Index 31.93 07/05/2020 1:55 PM CAP PARTS CUTTER Plan of Treatment Health Maintenance Due Date Last Done Comments Hepatitis C Virus (HCV) Screening 1950 TdaP Immunization 1950 Cologuard 09/02/1996 Colonoscopy 09/02/1996 Colorectal Cancer Screening 09/02/1996 Immunochemical Fecal Occult Blood 09/02/1996 Pneumococcal Immunization (50+ years) (1 of 1 - PCV) 09/02/2001 Zoster Immunization (1 of 2) 09/02/2001 Medicare Initial AWV [id number] 08/23/2017 Influenza Immunization (#1) 01/23/202503/26, 04/17/2020, 06/02/2019 SARS-COV-2 Immunization (2024- season) 2025 03/06/2022, 11/19/2021, 03/21/2021, Additional history exists Respiratory [...] age to complete this topic Insurance MEDICARE [facility] [employer] Care Teams Shot Core Drill Operator Helper Relationship Specialty Start Date End Date Abraham Jones MD [address] [place] [address] [place] [id number] PCP - General Internal Medicine 06/07/20
--- OUTSIDE RECORDS SUMMARY | 2025-04-07 08:39 | XMS_ITS | Clinical Summary ---
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 Role Phone Abraham Jones MD Primary Care Provider Allergies Active Allergy Reactions Criticality Noted Date Comments Phenytoin Sodium Extended Rash High 07/28/2019 Medications levothyroxine 75 mcg tablet levothyroxine 75 mcg tablet Active fluticasone propionate (FLONASE) 50 mcg/spray [place], Suspension nasal inhaler fluticasone propionate 50 mcg/actuation [...] Encounters Date Type Department Care Team Description 03/15/2025 External Device Data [facility] ABSTRACTION Provider, Abstract 03/14/2025 External Device Data [facility] Provider, Abstract 02/14/2025 External Device Data [facility] Provider, Abstract 02/07/2025 External Device Data [facility] ABSTRACTION Provider, Abstract from Last 3 Months Family History Medical History Relation Name Comments Stroke Father Stroke Mother Relation Name Status Comments Brother 1 Alive Brother 2 Alive Father Mother Social History Tobacco Use Types Packs/Day Years Used Date Smoking Tobacco: Former Cigarettes 0.5 5 0 07/27/2004 - 07/27/2009 Smokeless Tobacco: Never Alcohol Use Standard Drinks/Week Comments Yes 0 (1 standard drink = 0.6 oz pur e alcohol) Comments No Sex and Gender Information Value Date Recorded Sex Assigned at Not on file Legal Sex Female 9:46 AM G[employer] Gender Identity Not on file Sexual Orientation Not on file Last Filed Vital Signs Vital Sign Reading Time Taken Comments Blood Pressure 140/90 12/30/2024 8:39 AM CDT Pulse 72 12/30/2024 8:39 AM CDT Temperature 36.9 C (98.4 F) 12/30/2024 8:39 AM CDT Respiratory Rate 15 12/30/2024 8:39 AM CDT Oxygen Saturation 96% 12/30/2024 8:39 AM CDT Inhaled Oxygen Concentration - - Weight 81.6 kg (180 lb) 12/30/2024 8:39 AM CDT Height 162.6 cm (5' 4) 12/30/2021 10:03 AM CDT Body Mass Index 30.9 12/30/2021 10:03 AM CDT Plan of Treatment Upcoming Encounters Date Type Department Care Team (Late st Contact Info) Description 01/01/2026 11:00 AM CDT Office Visit [facility] ([facility]3] Oncology and Hematology - [place] [address] [place] [address] [facility] [address] [place] [address] Dane León MD [phone] [place] [address] Health Maintenance Due Date Last Done Comments DIABETES ANNUAL FOOT EXAM 09/02/1969 DIABETES MICROALBUMIN ANNUAL SCREEN 09/02/1969 LDL CHOLESTEROL ANNUAL 09/02/1969 DTAP/TDAP/TD VACCINES (1 - Tdap) 09/02/1970 FIT-DNA Q 3 years 09/02/1996 FIT/FOBT Q 1 year 09/02/1996 Flex Sig/CT Colonography Q 5 years 09/02/1996 RSV VACCINE (60+ or ) (1 - Risk 50-74 years 1-dose series) 09/02/2001 DIABETES ANNUAL RETINAL EXAM 02/26/2022 02/26/2021, 02/03/2020 DIABETES HBA1C Q 6 MONTHS 09/19/20232022, 01/01/2023, 09/04/2022, Additional history exists INFLUENZA VACCINE (#1) 2024 , 04/09/2023, 03/06/2022, Additional history exists COVID-19 Vaccine (8 - Modern a risk 2023- season) 2025 04/01/2024, 03/16/2023, 03/06/2022, Additional history exists BREAST CANCER SCREENING 05/09/2025 05/09/20 24, 05/09/2024, 05/06/2023, Additional history exists COLORECTAL SCREENING 04/26/2029 04/26/2019, 04/26/2019, 04/26/2019, Additional history exists Colorectal Cancer Screening 04/26/2029 OSTEOPOROSIS SCREENING 05/09/2029 , 06/25/2021, 02/21/2019 ZOSTER VACCINE Completed 03/16/2023, 02/23, 01/12/2023 PNEUMOCOCCAL VACCINE 50+ YEARS Completed 11/12/2023 Insurance Care Teams Truck Repair Supervisor Relationship Specialty Start Date End Date Abraham Jones MD PCP - General Internal Medicine 06/02/19
[2025-04-07 09:05] LABS: Hematocrit 46.7 % (37.0-47.0); Hemoglobin 15.6 g/dL (12.0-15.0); Immature Granulocyte Percent A 0.2 % (0-0.5); Lymphocytes Absolute Auto 1.38 K/mm3 (0.9-3.2); Mean Corpuscular HGB Conc 33.4 g/dl (32-36); Mean Corpuscular Hemoglobin 30.5 pg (26-34); Mean Corpuscular Volume 91.4 fl (80-100); Nucleated Red Blood Cells Absolute Auto 0.000 K/mm3 (0.0-0.012); Nucleated Red Blood Cells Perc 0.0 % (0.0-0.2); Platelet Count Result 234 k/mm3 (150-375); Red Blood Count 5.11 M/mm3 (4.2-5.4); White Blood Count 4.4 K/mm3 (4.5-10.0)
[2025-04-07 11:15] LABS: Magnesium 2.4 mg/dL (1.6-2.3)
[2025-04-07 11:19] LABS: Alanine Aminotransferase 30 U/L (6-35); Albumin Level 4.4 g/dL (3.5-5.1); Alkaline Phosphatase 88 U/L (38-126); Anion Gap 8 mmol/L (4-12); Aspartate Amino Transferase 51 U/L (14-36); Bilirubin,Total 0.8 mg/dL (0.2-1.3); Blood Urea Nitrogen 17 mg/dL (7-17); Calcium 8.7 mg/dL (8.4-10.2); Carbon Dioxide 28 mmol/L (22-30); Chloride 104 mmol/L (98-107); Cholesterol 121 mg/dL (0-200); Estimated Glomerular Filt Rate > 60; Glucose 105 mg/dL (65-110); HDL Direct 51 mg/dL; Potassium 3.8 mmol/L (3.4-5.0); Sodium 140 mmol/L (137-145); Total Protein 6.8 g/dL (6.3-8.2); Triglycerides 87 mg/dL (<150)
[2025-04-07 11:33] LABS: Free T4 Free Thyroxine 1.35 ng/dL (0.78-2.19)
[2025-04-07 11:52] LABS: Thyroid Stimulating Hormone 2.070 uIU/mL (0.465-4.680)
[2025-04-07 12:13] LABS: Vitamin B12 296.0 pg/mL (239-931)
[2025-04-07 12:24] LABS: Hemoglobin A1C 6.1 % (<5.7)
[2025-04-07 13:16] LABS: Add Urine Microscopic? YES; Appearance Urine Clear (Clear); Glucose Urine UA Negative (Negative); Leukocyte Esterase Ur 1+ LEU/UL (Negative); Nitrate Urine Negative (Negative); Non Pathogenic Casts 0-2; Specific Grav Ur 1.015 (1.001-1.035); Total Protein Urine Random < 5 mg/dL; Ur Ttl Prot Creatinine Ratio < 0.06 mg/mg (0-0.20)
[2025-04-07 13:20] LABS: MALB Creatinine Ratio 12.5 mg/g (0-30)
[2025-04-08 07:09] LABS: eGFR 77 (>59)
== END 2025-04-07 08:24 | disposition home or self-care (01) ==
LOC: ANHLAB 08:27
PROVIDERS: PCP Internal Medicine; Visit Provider Internal Medicine Nephrology
DX: I12.9 Hypertensive chronic kidney disease with stage 1 through stage 4 chronic kidney disease, or unspecified chronic kidney disease (principal); E11.22 Type 2 diabetes mellitus with diabetic chronic kidney disease; N18.2 Chronic kidney disease, stage 2 (mild); E78.5 Hyperlipidemia, unspecified; E03.9 Hypothyroidism, unspecified; N12 Tubulo-interstitial nephritis, not specified as acute or chronic; N32.81 Overactive bladder; Z13.1 Encounter for screening for diabetes mellitus
CPT/HCPCS: 36415; 80053; 80061; 81001; 82043; 82570; 82607; 82610; 83036; 83735; 84156; 84439; 84443; 85025